=== PATIENT | male | born 1940 | race Caucasian/White ===

== ENCOUNTER 2017-07-07 07:19 | Observation (INO) ==
[2017-07-07] MEDS ORDERED: Aspirin 81 MG TAB.CHEW PO ONE (07:30)
[2017-07-07 07:56] LABS: Basophils % 0.4 %; Eosinophils # 0.2 K/mcL (0.0-0.6); Eosinophils % 2.1 %; Hematocrit 39.3 % (37.5-50.1); Hemoglobin 13.6 g/dL (12.9-16.9); Immature Granulocytes % 0.6 % (0-4); Lymphocytes % 20.4 %; Mean Corpuscular HGB Conc 34.6 g/dL (31.6-35.5); Mean Corpuscular Hemoglobin 31.9 pg (28.0-33.3); Mean Platelet Volume 8.9 fL (9.4-12.4); Monocytes % 10.4 %; Neutrophils # 6.5 K/mcL (1.6-8.9); Platelet Count 261 K/mcL (140-400); Red Blood Count 4.27 M/mcL (4.19-5.50); Red Cell Distribution Width 13.6 % (11.5-14.5); Segmented Neutrophils % 66.1 %
[2017-07-07 08:09] LABS: BUN/Creatinine Ratio 14 (6-26); Blood Urea Nitrogen 15 mg/dL (8-23); Calcium 9.7 mg/dL (8.6-10.3); Carbon Dioxide 27 mEq/L (23-29); Chloride 104 mEq/L (98-107); Glucose 108 mg/dL (70-105); Osmolality,Calculated 297 (280-300); Potassium 3.8 mEq/L (3.5-5.1); Sodium 143 mEq/L (136-145); eGFR For African Americans > 60 (> 60); eGFR For Non-African Americans > 60 (> 60)
[2017-07-07] MEDS ORDERED: Acetaminophen 325 MG TABLET PO ONE (08:58)
--- NOTE | 2017-07-07 09:04 | Emergency Department Note ---
Disposition Clinical Impression: Lung mass, Atypical chest pain Disposition: Admitted As Inpatient Condition: Good Time of Disposition: 10:20 General Adult HPI - General Chief complaint: ED Chest Pain Stated complaint: CP Time Seen by Provider: 07/07/17 07:29 Source: patient Limitations: no limitations Nursing Notes Reviewed: Yes Vital Signs Reviewed: Yes - History of Present Illness HPI Narrative: 76-year-old male presents emergency Department with concerns of shortness of breath, cough, chest pain. Patient states this feels similar to previous pneumonia he has had the past. Patient describes a yellow-green sputum and feels short of breath with exertion. Patient reports chest pain is in the left upper chest, radiates to left upper extremity however it is sharp and stabbing for a few seconds then leading into an ache or multiple minutes. Denies associated diaphoresis or palpitations or syncope. Pain Scale: 8 - Related Data Home Medications Medication Instructions Recorded Confirmed Albuterol Sulfate [Albuterol 1 - 2 puff IH QID PRN 07/07/17 07/07/17 Inhaler] Aspirin Enteric Coated [Aspirin EC] 325 mg PO DAILY 07/07/17 07/07/17 Meloxicam [Meloxicam] 15 mg PO DAILY 07/07/17 07/07/17 Pantoprazole Sodium 40 mg PO DAILY 07/07/17 07/07/17 raNITIdine HCl [Ranitidine HCl] 300 mg PO BID 07/07/17 07/07/17 Allergies Allergy/AdvReac Type Severity Reaction Status Date / Time No Known Allergies Allergy Verified 07/07/17 07:23 All systems ED: reviewed and negative except as stated. Review of Systems: As Per HPI Constitutional: Denies: fever, chills Cardiovascular: Reports: chest pain Respiratory: Reports: cough, dyspnea. Denies: wheezes Gastrointestinal: Denies: abdominal pain, nausea, vomiting, diarrhea, hematochezia Past Medical History - Past Medical History Attestation: Yes The following information was validated with the patient. Source: patient Medical history: Reports: non-contributory, COPD Psychiatric history: Reports: no psych history - Social History Smoking Status: Current every day smoker Smokeless Tobacco Status: No Alcohol use: Reports: none Drug use: Reports: none Physical Exam General: Alert and in no acute distress Skin: Warm, dry, intact Head: Normocephalic and atraumatic Neck: Supple, trachea midline and no tenderness Cardiovascular: RRR, no murmur, normal perfusion Respiratory: CTAB, no wheezing, cough, or respiratory distress Musculoskeletal: Normal strength, no tenderness, swelling or deformity GI: Soft, nontender, nondistended. Bowel sounds present Neuro: A&O to person, place, time and situation. No focal deficits noted on exam Psychiatric: cooperative and appropriate mood and affect. - General Limitations: no limitations General appearance: alert, in no apparent distress Course Vital Signs Temperature 97.6 F 07/07/17 07:20 Pulse Rate 71 07/07/17 07:20 Respiratory Rate 18 07/07/17 07:20 Blood Pressure 147/84 07/07/17 07:20 O2 Sat by Pulse Oximetry 96 07/07/17 07:20 Temperature 97.6 F 07/07/17 15:25 Pulse Rate 64 07/07/17 15:25 Respiratory Rate 18 07/07/17 15:25 Blood Pressure 145/82 07/07/17 15:25 O2 Sat by Pulse Oximetry 95 07/07/17 15:25 Oxygen Delivery Oxygen Delivery Nasal Cannula Medical Decision Making - MDM Narrative Medical decision making narrative: Mass of lung on CT. No history of cancer. will be admitted for further care and evaluation. - Medical Records Medical records reviewed: Yes I reviewed the patient's medical records. - Lab Data Lab results reviewed: Yes I reviewed the patient's lab results. Result diagrams: 07/07/17 07:48 07/07/17 07:48 Lab Results 07/07/17 07/07/17 07/07/17 Range/Units 07:48 07:48 07:48 WBC 9.8 (4.3-11.1) K/mcL RBC 4.27 (4.19-5.50) M/mcL Hgb 13.6 (12.9-16.9) g/dL Hct 39.3 (37.5-50.1) % MCV 92.0 (83.0-100.0) fL MCH 31.9 (28.0-33.3) pg MCHC 34.6 (31.6-35.5) g/dL RDW 13.6 (11.5-14.5) % Plt Count 261 (140-400) K/mcL MPV 8.9 L (9.4-12.4) fL Immature Gran % 0.6 (0-4) % Seg Neutrophils % 66.1 % Lymphocytes % 20.4 % Monocytes % 10.4 % Eosinophils % 2.1 % Basophils % 0.4 % Neutrophils # 6.5 (1.6-8.9) K/mcL Lymphocytes # 2.0 (0.6-4.6) K/mcL Monocytes # 1.0 (0.0-1.3) K/mcL Eosinophils # 0.2 (0.0-0.6) K/mcL Basophils # 0.0 (0.0-0.2) K/mcL Sodium 143 (136-145) mEq/L Potassium 3.8 (3.5-5.1) mEq/L Chloride 104 (98-107) mEq/L Carbon Dioxide 27 (23-29) mEq/L BUN 15 (8-23) mg/dL Creatinine 1.06 (0.70-1.30) mg/dL Est GFR ( Amer) > 60 (> 60) Est GFR (Non-Af Amer) > 60 (> 60) BUN/Creatinine Ratio 14 (6-26) Glucose 108 H (70-105) mg/dL Calculated Osmolality 297 (280-300) Calcium 9.7 (8.6-10.3) mg/dL Troponin I < 0.03 (< 0.04) ng/mL - Radiology Data Radiology results reviewed: Yes I reviewed the patient's radiology results. - EKG Data EKG #1 EKG attestation: Yes I reviewed and interpreted this EKG. EKG results narrative: Rate of 81, normal sinus rhythm with first-degree AV block and multiple PACs No STEMI
[2017-07-07] MEDS ORDERED: Ipratropium/Albuterol Neb 3 ML IH PRN (11:04)
--- NOTE | 2017-07-07 11:11 | Internal Med History&Physical ---
Date of Encounter: 07/07/17 Time of Encounter: 11:07 Assessment and Plan (1) Lung mass Current visit: Yes Status: Acute Suspicious for cancer. Will consult pulmonology service for bronchoscopy. Patient is on aspirin 325 mg daily. (2) COPD (chronic obstructive pulmonary disease) Current visit: Yes Status: Acute As needed nebulizer treatment. No acute exacerbation. Denies increasing cough or sputum production fever or chills. Follow up with pulmonology Qualifiers: Qualified Code(s): J44.9 - Chronic obstructive pulmonary disease, unspecified (3) Chest pain Current visit: Yes Status: Acute Likely due to lung mass. EKG shows no ST segment shifts. Initial troponin normal. Check 2 more sets of cardiac enzymes. Continue aspirin. CT angiogram is negative for pulmonary embolism. Telemetry monitoring Qualifiers: Qualified Code(s): R07.9 - Chest pain, unspecified (4) Smoking Current visit: Yes Status: Acute Nicotine patch. Internal Medicine - H&P: HPI Chief complaint: chest pain History of present illness: Mr. Ramirez is a 76 year old male with history of COPD not a home oxygen, who was a lifelong smoker with approximately 100 pack here smoking history presents to the emergency room today with the main complaint of chest pain. For the past 2 days patient has been having pain in the left upper chest sharp in nature. He denies any relation of pain to exertion. He denies any hemoptysis leg pain or tenderness. He was found on contrasted CT scan of the chest to have approximately 7 x 7 cm left upper lobe mess suspicious for brokerage in the carcinoma. Patient denies any appetite decline weight loss or functional decline. Patient brother from lung cancer. Patient denies any increase in cough, sputum production, fever, chills. Past Med Surg Social Fam HX - Past Medical History Medical history: non-contributory, COPD Psychiatric history: no psych history - Social History Smoking Status: Current every day smoker Smokeless Tobacco Status: No Alcohol use: none Drug use: none Internal Medicine - H&P: Meds Albuterol Sulfate [Albuterol Inhaler] 1 - 2 puff IH QID PRN 07/07/17 [History] Aspirin Enteric Coated [Aspirin EC] 325 mg PO DAILY 07/07/17 [History] Meloxicam [Meloxicam] 15 mg PO DAILY 07/07/17 [History] Pantoprazole Sodium 40 mg PO DAILY 07/07/17 [History] raNITIdine HCl [Ranitidine HCl] 300 mg PO BID 07/07/17 [History] 3 Allergy/AdvReac Type Severity Reaction Status Date / Time No Known Allergies Allergy Verified 07/07/17 07:23 All Systems PM: A 10-system review of systems was performed and is negative for pertinent findings except as documented above in the HPI. Review of systems: 10 point review of systems is negative except for HPI - Constitutional Vitals: Temp Pulse Resp BP Pulse Ox 97.6 F 63 18 148/88 95 07/07/17 07:20 07/07/17 09:05 07/07/17 10:47 07/07/17 10:47 07/07/17 10:20 Exam: Gen.: patient is alert oriented times 3 not in distress. Cardiac: normal S1 S2 no additional sounds are murmurs. Chest: Diminished air entry. Scattered expiratory wheeze Abdomen: soft nontender nondistended. Lower extremity no swelling mucous membranes: moist Internal Med - H&P Results - Labs CBC & Chem 7: 07/07/17 07:48 07/07/17 07:48
[2017-07-07] MEDS: *HR* HYDROcodone/Acet 5/325 mg TABLET PO PRN ×2 (12:29→20:55)
[2017-07-07] MEDS ORDERED: *HR* Promethazine 25 MG/ML VIAL IVP PRN (14:16)
[2017-07-07] MEDS: *HR* Morphine 2 MG/ML SYRINGE IVP PRN ×2 (14:29→18:22)
[2017-07-08] MEDS: *HR* Morphine 2 MG/ML SYRINGE IVP PRN ×4 (02:26→22:22)
[2017-07-08] MEDS: *HR* HYDROcodone/Acet 5/325 mg TABLET PO PRN ×3 (04:54→21:45)
--- NOTE | 2017-07-08 06:57 | Electrocardiograph Report ---
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
[2017-07-08 07:45] LABS: BUN/Creatinine Ratio 13 (6-26); Blood Urea Nitrogen 14 mg/dL (8-23); Carbon Dioxide 29 mEq/L (23-29); Chloride 105 mEq/L (98-107); Glucose 95 mg/dL (70-105); Magnesium 1.8 mg/dL (1.6-2.6); Osmolality,Calculated 290 (280-300); Potassium 3.8 mEq/L (3.5-5.1); Sodium 140 mEq/L (136-145); eGFR For African Americans > 60 (> 60); eGFR For Non-African Americans > 60 (> 60)
[2017-07-08] MEDS: Aspirin Enteric Coated 325 MG Tablet PO SCH (09:02)
--- NOTE | 2017-07-08 12:43 | Internal Med Progress Note ---
Date of Encounter: 07/08/17 Time of Encounter: 12:41 - Assessment and plan (1) Lung mass Current Visit: Yes Status: Acute Assessment and plan: Left-sided lung mass, he has 100 pack years of smoking history. Likely malignancy. Awaiting for pulmonary consult. (2) COPD (chronic obstructive pulmonary disease) Current Visit: Yes Status: Acute Assessment and plan: COPD, currently on room air, no shortness of breath. Nebulizer as needed Qualifiers: Qualified Code(s): J44.9 - Chronic obstructive pulmonary disease, unspecified (3) Chest pain Current Visit: Yes Status: Acute Assessment and plan: Chest pain is atypical, nonexertional. Likely from long mass He had essentially negative troponin, CTA is negative for PE. Will order echocardiogram Qualifiers: Qualified Code(s): R07.9 - Chest pain, unspecified (4) Smoking Current Visit: Yes Status: Chronic Assessment and plan: Smoking cessation discussed, on nicotine patch. (5) GERD (gastroesophageal reflux disease) Current Visit: Yes Status: Acute Assessment and plan: Continue omeprazole Qualifiers: Esophagitis presence: without esophagitis Qualified Code(s): K21.9 - Gastro -esophageal reflux disease without esophagitis - Time Spent With Patient 25 - 35 minutes - Subjective Interval history: Mr. Ramirez is a 76 year old male with history of COPD not a home oxygen, who was a lifelong smoker with approximately 100 pack here smoking history presents to the emergency room today with the main complaint of chest pain. For the past 2 days patient has been having pain in the left upper chest sharp in nature. He denies any relation of pain to exertion. He denies any hemoptysis leg pain or tenderness. He was found on contrasted CT scan of the chest to have approximately 7 x 7 cm left upper lobe mess suspicious for brokerage in the carcinoma. Patient denies any appetite decline weight loss or functional decline. Patient brother from lung cancer. Patient denies any increase in cough, sputum production, fever, chills. Patient is doing okay, on room air. He still complaining of left arm pain on and off sharp. He has some tenderness to left chest wall and the axillary. I discussed the CT findings with him he understand it could be malignancy. He is alert oriented 3 he says he makes his own decision - Constitutional Vitals: Temp Pulse Resp BP Pulse Ox 98.1 F 63 16 125/81 94 07/08/17 11:22 07/08/17 11:22 07/08/17 11:22 07/08/17 11:22 07/08/17 11:22 General appearance: Present: cooperative, A&O X 3, loss of weight Exam: CONSTITUTIONAL: patient appears as an age appropriate male in no acute distress. EYES Clear sclerae, bilateral pupils are equal, reactive to light. EMOI. RESPIRATORY: No accessory muscle use, bilateral reduced breath sounds to auscultation, no wheezing, no crackles/rales. CARDIOVASCULAR: Regular heart rate, normal S1 and S2, no murmurs GASTROINTESTINAL: bowel sounds present, soft, no tenderness. MUSCULOSKELETAL: Joints in normal range of motion, no clubbing, no edema, no cyanosis. Bilateral peripheral pulses 2+. NEUROLOGIC: CN II to XII are grossly intact, no focal neurological deficit. Internal Medicine: Result - Labs CBC & Chem 7: 07/07/17 07:48 07/08/17 05:20 Labs: BMP 07/08/17 05:20 Sodium 140 Potassium 3.8 Chloride 105 Carbon Dioxide 29 BUN 14 Creatinine 1.12 Glucose 95 Calcium 9.0 Cardiac Enzymes 07/07/17 07/07/17 Range/Units 13:34 19:46 Troponin I < 0.03 < 0.03 (< 0.04) ng/mL - ABG Interpretation ABG results: PT/INR, D-dimer PT 11.0 Seconds (9.4-12.1) 07/08/17 05:20 - VTE Documentation of Mechanical Device: Intermittent pneumatic compression device Consult Discharge Plan - Plan Referrals: Willem Le DO [Primary Care Provider] -
[2017-07-08] MEDS ORDERED: *HR* OxyCODONE Immed Rel 5 MG TABLET PO ONE (23:16)
[2017-07-08] MEDS: Nicotine 21 MG PATCH.TD24 TD SCH (23:57)
[2017-07-09] MEDS ORDERED: Methocarbamol 500 MG TABLET PO ONE (01:55)
[2017-07-09] MEDS: *HR* Morphine 2 MG/ML SYRINGE IVP PRN ×2 (04:12→23:17)
[2017-07-09] MEDS: Aspirin Enteric Coated 325 MG Tablet PO SCH (07:47)
[2017-07-09] MEDS: Nicotine 21 MG PATCH.TD24 TD SCH (07:47)
--- NOTE | 2017-07-09 08:17 | Internal Med Progress Note ---
Date of Encounter: 07/09/17 Time of Encounter: 08:15 - Assessment and plan (1) Lung mass Current Visit: Yes Status: Acute Assessment and plan: Left-sided lung mass, he has 100 pack years of smoking history. Likely malignancy. Awaiting for pulmonary consult. I discussed it was breaker machine tender is Dr. Villela he will see the patient patient is nothing by mouth may do procedure, INR is 1. (2) COPD (chronic obstructive pulmonary disease) Current Visit: Yes Status: Chronic Assessment and plan: COPD, currently on room air, no shortness of breath. Nebulizer as needed Qualifiers: Qualified Code(s): J44.9 - Chronic obstructive pulmonary disease, unspecified (3) Chest pain Current Visit: Yes Status: Acute Assessment and plan: Chest pain is atypical, non exertional. Likely from long mass He had essentially negative troponin, CTA is negative for PE. pending echocardiogram Qualifiers: Chest pain type: intercostal pain Qualified Code(s): R07.82 - Intercostal pain (4) Smoking Current Visit: Yes Status: Chronic Assessment and plan: Smoking cessation discussed, on nicotine patch. (5) GERD (gastroesophageal reflux disease) Current Visit: Yes Status: Acute Assessment and plan: Continue omeprazole Qualifiers: Esophagitis presence: without esophagitis Qualified Code(s): K21.9 - Gastro -esophageal reflux disease without esophagitis - Time Spent With Patient 25 - 35 minutes - Subjective Interval history: Mr. Ramirez is a 76 year old male with history of COPD not a home oxygen, who was a lifelong smoker with approximately 100 pack here smoking history presents to the emergency room today with the main complaint of chest pain. For the past 2 days patient has been having pain in the left upper chest sharp in nature. He denies any relation of pain to exertion. He denies any hemoptysis leg pain or tenderness. He was found on contrasted CT scan of the chest to have approximately 7 x 7 cm left upper lobe mess suspicious for brokerage in the carcinoma. Patient denies any appetite decline weight loss or functional decline. Patient brother from lung cancer. Patient denies any increase in cough, sputum production, fever, chills. Patient is doing okay, on room air. He still complaining of left arm pain on and off sharp. He has some tenderness to left chest wall and the axillary. I discussed the CT findings with him he understand it could be malignancy. He is alert oriented 3 he says he makes his own decision Patient states is a LEFT-sided chest pain has been improving overnight, muscle relaxants helped HIS shoulder pain. He is nothing by mouth waiting for Dr. Villela to see the patient I discussed with his breaker machine tender is Dr. Richard today he may do bronchscopy today. - Constitutional Vitals: Temp Pulse Resp BP Pulse Ox 97.7 F 69 18 150/96 95 07/09/17 08:02 07/09/17 08:02 07/09/17 08:02 07/09/17 08:02 07/09/17 08:02 General appearance: Present: cooperative, A&O X 3, loss of weight Exam: CONSTITUTIONAL: patient appears as an age appropriate male in no acute distress. EYES Clear sclerae, bilateral pupils are equal, reactive to light. EMOI. RESPIRATORY: No accessory muscle use, bilateral diminished breath sounds to auscultation, no wheezing, no crackles/rales. CARDIOVASCULAR: Regular heart rate, normal S1 and S2, no murmurs GASTROINTESTINAL: bowel sounds present, soft, no tenderness. MUSCULOSKELETAL: Joints in normal range of motion, no clubbing, no edema, no cyanosis. Bilateral peripheral pulses 2+. NEUROLOGIC: CN II to XII are grossly intact, no focal neurological deficit. Internal Medicine: Result - Labs CBC & Chem 7: 07/07/17 07:48 07/08/17 05:20 - ABG Interpretation ABG results: PT/INR, D-dimer PT 11.0 Seconds (9.4-12.1) 07/08/17 05:20 - VTE Documentation of Mechanical Device: Intermittent pneumatic compression device Consult Discharge Plan - Plan Referrals: Willem Le DO [Primary Care Provider] -
[2017-07-09] MEDS ORDERED: *HR* FentaNYL (PF) 100 MCG/2 ML VIAL ONE (09:14)
[2017-07-09] MEDS ORDERED: *HR* Midazolam HCl 5 MG/5 ML VIAL IVP ONE ×2 (09:14→09:23)
[2017-07-09] MEDS ORDERED: Lidocaine Viscous Oral Soln 15 ML SOLUTION ONE (09:14)
[2017-07-09] MEDS ORDERED: 0.9 % Sodium Chloride 500 ML IVC SCH (09:15)
[2017-07-09] MEDS ORDERED: *HR* EPINEPHrine 1 MG/10 ML SYRINGE INTRATRACH PRN (09:23)
[2017-07-09] MEDS ORDERED: Tetracaine/Benzocaine/Butamben 200MG/SPRAY (100SPY/BOT) MM ONE (09:23)
[2017-07-09] MEDS ORDERED: Lidocaine Viscous Oral Soln 15 ML SOLUTION MM ONE (09:23)
[2017-07-09] MEDS ORDERED: *HR* FentaNYL (PF) 100 MCG/2 ML VIAL IVP ONE ×2 (09:23→09:46)
[2017-07-09] MEDS ORDERED: Albuterol 2.5 MG/3 ML NEBULIZER IH ONE (09:23)
--- NOTE | 2017-07-09 09:25 | Pre-Sedation Evaluation ---
Pre-sedation evaluation - Pre-sedation checklist Date of procedure: 07/09/17 Procedure: Bronchoscopy Recent Vitals: Last Vital Signs Temp 97.7 F 07/09/17 08:02 Pulse 102 07/09/17 09:17 Resp 16 07/09/17 09:17 BP 153/80 07/09/17 09:17 Pulse Ox 94 07/09/17 09:17 H&P (including ROS) documented in medical record: Yes Previous reaction to sedatives/anesthetics: No Dietary Status: NPO after Midnight Possible difficult airway: No ASA Classification *see protocol: CLASS II-Mild systemic disease Plan of Care: Pt appropriate candidate for procedure/moderate/conscious sedation , Risks/benefits of procedure/sedation discussed w/ patient/family
[2017-07-09] MEDS ORDERED: Ringers Solution, Lactated 1,000 ML IVC SCH (09:30)
[2017-07-09] MEDS ORDERED: Dexamethasone 4 MG/ML VIAL IVP ONE (10:11)
[2017-07-09] MEDS ORDERED: Ipratropium/Albuterol Neb 3 ML ONE (10:11)
[2017-07-09] MEDS ORDERED: methylPREDNISolone 125 MG/2 ML VIAL ONE (10:11)
[2017-07-09] MEDS ORDERED: Ipratropium/Albuterol Neb 3 ML IH ONE (10:12)
[2017-07-09] MEDS ORDERED: methylPREDNISolone 125 MG/2 ML VIAL IVP ONE (10:12)
[2017-07-09] MEDS ORDERED: *HR* EPINEPHrine 1 MG/10 ML SYRINGE ONE (10:32)
[2017-07-09 14:52] LABS: Appearance of Body Fluid Cloudy (Clear); Volume of Body Fluid 22 mL
--- NOTE | 2017-07-09 16:26 | Oncology Inp Consult Note ---
<Vinnie Leblanc - Last Filed: 07/09/17 22:59> Date of Encounter: 07/09/17 Assessment and Plan (1) Lung mass Status: Acute Assessment and plan: Left upper lobe lung mass abutting the mediastinum with possible left hilar adenopathy and prominent subcarinal lymph node. Presentation seems to fit squamous cell carcinoma or small cell carcinoma although other histologies are possible. Biopsy results from EBUS with biopsy today pending. Recommend MRI imaging of the brain and outpatient PET/CT for staging. Will need PFTs as well. Will await pathology and staging studies prior to finalizing treatment plan and d/w patient that therapy could include chemotherapy with and without radiation and less likely surgery. He may be d/c home and will schedule with close f/u with me next week. - Data of Consult Requesting Physician: Kayce Pittamn MD Primary Care Provider: Willem Le - Consult Narrative Reason for consult: Probable new lung cancer History of present illness: Mr. Ramirez is a 76 year old male with an extensive tobacco history smoking up to 5 ppd at points in his life as well as GERD and COPD who presented with a two to three week history of left shoulder pain followed more acutely with chest pain for the past two days prompting ER visit. CT imaging at admission revealed a large left apical mass measuring 7..4 x 5.6 x 7.1 cm which abuts the mediastinal pleura and extends up to the superior margin of the left hilum. The mass surrounds and obstructs the left upper lobe bronchus with postobstructive volume loss within the left upper lobe. The mass abuts the upper thoracic spine however no definite erosion of the adjacent vertebral bodies are evident. There is an enlarged left hilar lymph node measuring 1.7 x 1.8 cm. Subcarinal node by my review appears enlarged. Extensive emphysema identified. There is an indeterminate 2.0 x 1.4 cm left adrenal nodule, He underwent bronchoscopy with EBUS today with sampling of the mass which by preliminary evaluation was suspicious for malignancy. Left hilar biopsy preliminarily negative. He tolerated the procedure well. Pain is better, and he is breathing more comfortably. Appetite is stable, but he believes he has lost weight. He is accompanied by his granddaughter. Past Med Surg Social Fam HX - Past Medical History Medical history: COPD, GERD Medications and Allergies Albuterol Sulfate [Albuterol Inhaler] 1 - 2 puff IH QID PRN 07/07/17 [History] Aspirin Enteric Coated [Aspirin EC] 325 mg PO DAILY 07/07/17 [History] Meloxicam [Meloxicam] 15 mg PO DAILY 07/07/17 [History] Pantoprazole Sodium 40 mg PO DAILY 07/07/17 [History] raNITIdine HCl [Ranitidine HCl] 300 mg PO BID 07/07/17 [History] 3 Allergy/AdvReac Type Severity Reaction Status Date / Time No Known Allergies Allergy Verified 07/07/17 07:23 All systems: reviewed and no additional remarkable complaints except as stated Constitutional: Present: fatigue, weight loss Eyes: Present: as per HPI Ears: Present: as per HPI Nose, mouth and throat: Present: as per HPI Cardiovascular: Present: chest pain, dyspnea on exertion Respiratory: Present: cough, dyspnea on exertion Gastrointestinal: Present: as per HPI Musculoskeletal: Present: as per HPI Integumentary: Present: as per HPI Psychiatric: Present: as per HPI Oncology - Exam - Constitutional Vitals: Temp Pulse Resp BP Pulse Ox 97.5 F L 70 18 130/83 90 07/09/17 15:24 07/09/17 15:24 07/09/17 15:24 07/09/17 15:24 07/09/17 15:24 General appearance: average body habitus, no acute distress - Head Head exam: Present: atraumatic, normal inspection, normocephalic - Eye Eye exam: Present: EOMI, normal appearance, conjuntiva pink, sclera anicteric - ENT ENT exam: Present: mucous membranes moist, normal exam - Neck Neck exam: Present: full ROM, normal inspection - Respiratory Respiratory exam: Present: decreased breath sounds, prolonged expiratory phase - Cardiovascular Cardiovascular exam: Present: RRR - GI/Abdominal GI/Abdominal exam: Present: normal bowel sounds, soft - Extremities Exam Extremities exam: Present: normal inspection - Neurological Exam Neurological exam: Present: alert, CN II-XII intact, oriented X3, no focal deficits Oncology - Results Labs: CBC 07/07/17 normal. CMP 07/08/17 normal. CTA OF THE CHEST 07/07/2017 10:01 am TECHNIQUE: CTA of the chest was performed after the administration of intravenous contrast. Multiplanar reformatted images are provided for review. MIP images are provided for review. Dose modulation, iterative reconstruction, and/or weight based adjustment of the mA/kV was utilized to reduce the radiation dose to as low as reasonably achievable. COMPARISON: Chest radiograph earlier same day HISTORY: ORDERING SYSTEM PROVIDED HISTORY: dyspnea r/o PE 70 ml of isovue 370 Chest pain and left shoulder pain for 1 week. FINDINGS: Pulmonary Arteries: There are no filling defects identified within the main, right or left pulmonary arteries or their major lobar or segmental branches to suggest acute pulmonary embolism. Mediastinum: The airways are normal in appearance. Atherosclerotic calcifications are present within the thoracic aorta and coronary arteries. There is no paratracheal lymphadenopathy or superior mediastinal lymphadenopathy. Lungs/pleura: There is a large left apical mass which abuts the mediastinal pleura and extends up to the superior margin of the left hilum. The mass surrounds and obstructs the left upper lobe bronchus with postobstructive volume loss within the left upper lobe inseparable from the mass. The mass measures approximately 7.4 x 5.6 x 7.1 cm in AP by transverse by craniocaudal dimension. There is an enlarged left hilar lymph node measuring 1.7 x 1.8 cm. The mass abuts the upper thoracic spine however no definite erosion of the adjacent vertebral bodies are evident. The mass narrows the left upper lobe lobar and segmental pulmonary arteries. Centrilobular emphysematous changes are present within the upper lobes. There is no pleural effusion. There is an indeterminate solid 5 mm right upper lobe pulmonary nodule. No additional pulmonary nodules are identified. Upper Abdomen: There is an indeterminate 2.0 x 1.4 cm left adrenal nodule, incompletely evaluated. Limited evaluation of the right adrenal gland is unremarkable. A hiatal hernia is noted. Soft Tissues/Bones: No lytic or blastic osseous lesions are identified. CT/CT angio chest IMPRESSION: 1. Negative CT angiogram for acute pulmonary embolism. 2. Large left apical mass measuring approximately 7.4 x 5.6 x 7.1 cm obstructing left upper lobe bronchus consistent with a bronchogenic carcinoma. 3. Enlarged left hilar lymph node most consistent with a focus of yeni metastatic disease. 4. Indeterminate left adrenal nodule concerning for a possible focus of metastatic disease. 5. Indeterminate 5 mm right upper lobe pulmonary nodule. The above findings were discussed with Dr. Perez at 10:15 a.m. on 07/07/2017. Consult Discharge Plan - Plan Referrals: Willem Le DO [Primary Care Provider] - <Milly Kent - Last Filed: 07/10/17 14:33> Date of Encounter: 07/10/17 Time of Encounter: 16:25 - Data of Consult Patient: new to practice Consult date: 07/09/17 Requesting Physician: Kayce Pittman MD Primary Care Provider: Willem Le Past Med Surg Social Fam HX - Past Medical History Medical history: non-contributory, COPD Psychiatric history: no psych history - Social History Smoking Status: Current every day smoker Smokeless Tobacco Status: No Alcohol use: none Drug use: none - Family History Mother Living Status: Hx Family Respiratory Disorders: Yes (asthma) Father Living Status: Constitutional: Present: fatigue, weight loss Cardiovascular: Present: chest pain, dyspnea on exertion, radiating pain Additional comments: radiating pain through shoulder blade Respiratory: Present: cough, dyspnea on exertion Gastrointestinal: Present: as per HPI Genitourinary: as per HPI Musculoskeletal: Present: as per HPI Integumentary: Present: as per HPI Neurological: Present: as per HPI. Absent: focal weakness Psychiatric: Present: as per HPI Endocrine: Present: as per HPI Oncology - Exam - Constitutional Vitals: Temp Pulse Resp BP Pulse Ox 97.5 F L 70 18 130/83 90 07/09/17 15:24 07/09/17 15:24 07/09/17 15:24 07/09/17 15:24 07/09/17 15:24 - Head Head exam: Present: atraumatic, normal inspection - Respiratory Respiratory exam: Present: decreased breath sounds, wheezes. Absent: respiratory distress - Cardiovascular Cardiovascular exam: Present: RRR, +S1, +S2 - GI/Abdominal GI/Abdominal exam: Present: normal bowel sounds, soft. Absent: tenderness - Extremities Exam Extremities exam: Present: normal inspection. Absent: calf tenderness - Expanded Lower Extremity Exam Lower Leg exam: Absent: swelling - Neurological Exam Neurological exam: Present: alert, oriented X3, no focal deficits - Psychiatric Psychiatric exam: Present: normal affect, normal mood - Skin Skin exam: Present: normal color, warm
--- NOTE | 2017-07-09 18:26 | Pulmonology Consult Note ---
Date of Encounter: 07/09/17 Time of Encounter: 08:00 Assessment and Plan (1) Lung mass Current Visit: Yes Status: Acute I have reviewed the result of the CT chest with the patient as well as with his family at the bedside and due to high suspicion clinically as well as CT images have recommended biopsy with rhonchi auscultated to check airway and also his lymph nodes and I also offered him CT-guided biopsy. The patient agreed with bronchoscopy and I have explained to him all the risks, alternatives, benefits of the procedure and procedure arranged for the patient. Plan of care discussed with the primary team and thank you very much for the consultation. (2) COPD (chronic obstructive pulmonary disease) Current Visit: Yes Status: Chronic Patient will need outpatient follow-up and workup with pulmonary function test and also at this time continue bronchodilators. Qualifiers: COPD type: unspecified COPD Qualified Code(s): J44.9 - Chronic obstructive pulmonary disease, unspecified (3) Smoking Current Visit: Yes Status: Chronic Advised patient to quit smoking. History of Present Illness Consult date: 07/09/17 Requesting physician: Kayce Pittman Reason for consult: COPD, lung mass Chief complaint: Chest pain History of present illness: This is a very pleasant 76-year-old male with history of COPD and significant history of smoking for about 100 pack year old presented to the hospital with chest pain. Patient denies any hemoptysis and he was found to have abnormal CT chest with a mass occupying left upper lobe suspicious for carcinoma and pulmonary was consulted for evaluation. Patient denies any significant productive cough or significant wheezing but he has noticed dyspnea on cession. Patient denies any fever or chills or weight loss. He denies any significant family history of lung cancers. Past Med Surg Social Fam HX - Past Medical History Medical history: non-contributory, COPD Psychiatric history: no psych history - Social History Smoking Status: Current every day smoker Smokeless Tobacco Status: No Alcohol use: none Drug use: none - Family History Mother Living Status: Hx Family Respiratory Disorders: Yes (asthma) Father Living Status: Medications and Allergies Albuterol Sulfate [Albuterol Inhaler] 1 - 2 puff IH QID PRN 07/07/17 [History] Aspirin Enteric Coated [Aspirin EC] 325 mg PO DAILY 07/07/17 [History] Meloxicam [Meloxicam] 15 mg PO DAILY 07/07/17 [History] Pantoprazole Sodium 40 mg PO DAILY 07/07/17 [History] raNITIdine HCl [Ranitidine HCl] 300 mg PO BID 07/07/17 [History] 3 Allergy/AdvReac Type Severity Reaction Status Date / Time No Known Allergies Allergy Verified 07/07/17 07:23 All Systems: A 10-system review of systems was performed and is negative for pertinent findings except as documented above in the HPI. Physical Examination Vital Signs: Vital Signs, Last 4 Hours Temp Pulse Resp BP Pulse Ox 07/09/17 15:24 97.5 F L 70 18 130/83 90 General appearance: no acute distress ENT: oropharynx moist Mallampati (class): 2 Neck: supple, no lymphadenopathy Effort: normal Inspection: hyperextended Auscultation: left: rhonchi, bilateral: diminished breath sounds Percussion: bilateral: not dull Cardiovascular: regular rate and rhythm Gastrointestinal: normoactive bowel sounds Extremities: no cyanosis normal mental status, non-focal exam mood appropriate Results - Laboratory Findings CBC and BMP: 07/07/17 07:48 07/08/17 05:20 PT/INR, D-dimer PT 11.0 Seconds (9.4-12.1) 07/08/17 05:20 Abnormal lab findings: Abnormal lab results MPV 8.9 fL (9.4-12.4) L 07/07/17 07:48 Fluid Appearance Cloudy (Clear) A 07/09/17 Unknown - Microbiology Findings Microbiology Findings: Microbiology, Last 48 Hours 07/09/17 Unknown Gram Stain - Final Left Upper Lobe Lung - Diagnostic Findings CT scan - chest: report reviewed, image reviewed - Clinical Findings Intake & Output: Intake & Output 07/09/17 07/09/17 07/09/17 07:59 15:59 23:59 Intake Total 300 / 300 Output Total 700 / 700 200 / 200 Balance -700 / -700 100 / 100 Weight 82.8 kg Consult Discharge Plan - Plan Referrals: Willem Le DO [Primary Care Provider] -
[2017-07-09] MEDS: *HR* HYDROcodone/Acet 5/325 mg TABLET PO PRN (20:48)
[2017-07-10] MEDS: Methocarbamol 750 MG TABLET PO PRN ×3 (01:59→21:30)
[2017-07-10] MEDS ORDERED: *HR* EPINEPHrine 1 MG/10 ML SYRINGE ONE (06:58)
[2017-07-10] MEDS: Nicotine 21 MG PATCH.TD24 TD SCH (08:50)
[2017-07-10] MEDS: Aspirin Enteric Coated 325 MG Tablet PO SCH (08:51)
--- NOTE | 2017-07-10 14:13 | Internal Med Progress Note ---
Date of Encounter: 07/10/17 Time of Encounter: 14:10 - Assessment and plan (1) Lung mass Current Visit: Yes Status: Acute Assessment and plan: Left-sided lung mass, he has 100 pack years of smoking history. Likely malignancy. Pulmonary was consulted, had the bronchoscope and biopsy on July 09, pending pathology report Oncologist on board. pain is better controlled with muscle relax (2) COPD (chronic obstructive pulmonary disease) Current Visit: Yes Status: Chronic Assessment and plan: COPD, currently on room air, no shortness of breath. Nebulizer as needed As a nebulizer as scheduled Qualifiers: COPD type: unspecified COPD Qualified Code(s): J44.9 - Chronic obstructive pulmonary disease, unspecified (3) Chest pain Current Visit: Yes Status: Acute Assessment and plan: Chest pain is atypical, non exertional. Likely from long mass He had essentially negative troponin, CTA is negative for PE. echocardiogram on 07/08, normal EF Qualifiers: Chest pain type: intercostal pain Qualified Code(s): R07.82 - Intercostal pain (4) Smoking Current Visit: Yes Status: Chronic Assessment and plan: Smoking cessation discussed, on nicotine patch. (5) GERD (gastroesophageal reflux disease) Current Visit: Yes Status: Acute Assessment and plan: Continue omeprazole Qualifiers: Esophagitis presence: without esophagitis Qualified Code(s): K21.9 - Gastro -esophageal reflux disease without esophagitis - Time Spent With Patient 25 - 35 minutes - Subjective Interval history: Mr. Ramirez is a 76 year old male with history of COPD not a home oxygen, who was a lifelong smoker with approximately 100 pack here smoking history presents to the emergency room today with the main complaint of chest pain. For the past 2 days patient has been having pain in the left upper chest sharp in nature. He denies any relation of pain to exertion. He denies any hemoptysis leg pain or tenderness. He was found on contrasted CT scan of the chest to have approximately 7 x 7 cm left upper lobe mess suspicious for brokerage in the carcinoma. Patient denies any appetite decline weight loss or functional decline. Patient brother from lung cancer. Patient denies any increase in cough, sputum production, fever, chills. Patient is doing okay, on room air. He still complaining of left arm pain on and off sharp. He has some tenderness to left chest wall and the axillary. I discussed the CT findings with him he understand it could be malignancy. He is alert oriented 3 he says he makes his own decision Dr. Richard was consulted on 07/09, had bronchscopy and biopsy, pending path, oncology is on board - Constitutional Vitals: Temp Pulse Resp BP Pulse Ox 97.4 F L 72 18 148/82 94 07/10/17 11:04 07/10/17 11:04 07/10/17 11:04 07/10/17 11:04 07/10/17 11:04 General appearance: Present: cooperative, A&O X 3, loss of weight Exam: CONSTITUTIONAL: patient appears as an age appropriate male in no acute distress. EYES Clear sclerae, bilateral pupils are equal, reactive to light. EMOI. RESPIRATORY: No accessory muscle use, bilateral diminished breath sounds to auscultation, no wheezing, no crackles/rales. CARDIOVASCULAR: Regular heart rate, normal S1 and S2, no murmurs GASTROINTESTINAL: bowel sounds present, soft, no tenderness. MUSCULOSKELETAL: Joints in normal range of motion, no clubbing, no edema, no cyanosis. Bilateral peripheral pulses 2+. NEUROLOGIC: CN II to XII are grossly intact, no focal neurological deficit. Internal Medicine: Result - Labs CBC & Chem 7: 07/07/17 07:48 07/08/17 05:20 - ABG Interpretation ABG results: PT/INR, D-dimer PT 11.0 Seconds (9.4-12.1) 07/08/17 05:20 - VTE Documentation of Mechanical Device: Intermittent pneumatic compression device Consult Discharge Plan - Plan Referrals: Willem Le DO [Primary Care Provider] -
--- NOTE | 2017-07-10 14:36 | Oncology Inp Progress Note ---
Date of Encounter: 07/10/17 Time of Encounter: 14:34 (1) Lung mass Current Visit: Yes Status: Acute Assessment and plan: Left upper lobe lung mass abutting the mediastinum with possible left hilar adenopathy and prominent subcarinal lymph node. Biopsy results from EBUS with biopsy today pending. MRI imaging of the brain today negative for intracranial metastasis. Outpatient PET/CT for staging. Will need PFTs as well. I again reiterated plan to await pathology and staging studies prior to finalizing treatment plan and d/w patient that therapy could include chemotherapy with and without radiation and less likely surgery. Patient and patients granddaughter verbalize understanding and have no further questions at this time. He may be d/c home when cleared through medical team and he is scheduled to follow up with Dr. Leblanc on Thursday to initiate treatment planning. Oncology: Subj Interval history: Mr. Ramirez is resting comfortably, his granddaughter is at his bedside. Pain to left upper chest/shoulder blade has improved. His only real complaint at this time is constipation, he has been prescribed colace and miralax. - Constitutional Vitals: Vital Signs Temp Pulse Resp BP Pulse Ox 07/10/17 11:04 97.4 F L 72 18 148/82 94 07/10/17 08:57 95 07/10/17 07:20 97.9 F 64 16 134/75 95 07/10/17 02:15 97.6 F 72 16 127/71 92 07/09/17 22:54 97.7 F 86 16 110/63 93 07/09/17 22:24 18 96 07/09/17 18:41 97.9 F 94 14 146/76 93 07/09/17 15:24 97.5 F L 70 18 130/83 90 Intake and Output 07/09/17 07/10/17 07/10/17 23:59 07:59 15:59 Intake Total 600 / 600 240 / 240 240 / 240 Output Total 800 / 800 300 / 300 Balance -200 / -200 -60 / -60 240 / 240 Intake: Oral 600 / 600 240 / 240 240 / 240 Output: Urine 800 / 800 300 / 300 Other: Meal Breakfast Percent of Meal Consumed 90% Weight 82.4 kg Patient Weight 07/10/17 23:59 Weight 82.4 kg General appearance: cooperative, no acute distress, no febrile - Respiratory Respiratory exam: Present: decreased breath sounds, wheezes. Absent: respiratory distress - Cardiovascular Cardiovascular exam: Present: RRR, +S1, +S2 - GI/Abdominal GI/Abdominal exam: Present: distended, normal bowel sounds, soft. Absent: tenderness - Extremities Exam Extremities exam: Absent: calf tenderness, pedal edema - Neurological Exam Neurological exam: Present: alert, oriented X3, no focal deficits, strengths equal and symetr throughout - Psychiatric Psychiatric exam: Present: normal affect, normal mood - Skin Skin exam: Present: normal color, warm Oncology: Obj Data - Labs CBC & Chem 7: 07/07/17 07:48 07/08/17 05:20 Labs: Laboratory Results - last 24 hr 07/09/17 Unknown Fluid Source BRANDON bal Fluid Volume 22 Fluid Appearance Cloudy A Fluid RBC Fld Tot Nucleated Cell Fluid Seg Neutrophil % 33.0 Fluid Lymphocytes % 5.0 Fluid Monocytes % 1.0 Fluid Other Cells % 61.0 - ABG Interpretation ABG results: PT/INR, D-dimer PT 11.0 Seconds (9.4-12.1) 07/08/17 05:20 Consult Discharge Plan - Plan Referrals: Willem Le DO [Primary Care Provider] -
[2017-07-10] MEDS: Ipratropium/Albuterol Neb 3 ML IH SCH ×3 (17:12→23:28)
[2017-07-10] MEDS: *HR* HYDROcodone/Acet 5/325 mg TABLET PO PRN (18:06)
[2017-07-11] MEDS: Ipratropium/Albuterol Neb 3 ML IH SCH ×7 (00:38→23:21)
[2017-07-11] MEDS ORDERED: *HR* OxyCODONE Immed Rel 5 MG TABLET PO ONE (02:18)
[2017-07-11] MEDS: *HR* HYDROcodone/Acet 5/325 mg TABLET PO PRN (05:51)
[2017-07-11] MEDS: Aspirin Enteric Coated 325 MG Tablet PO SCH (12:02)
[2017-07-11] MEDS: Nicotine 21 MG PATCH.TD24 TD SCH (12:02)
[2017-07-11] MEDS: Methocarbamol 750 MG TABLET PO PRN ×2 (12:02→20:11)
--- NOTE | 2017-07-11 15:55 | Internal Med Progress Note ---
Date of Encounter: 07/11/17 Time of Encounter: 15:55 - Assessment and plan (1) Lung mass Current Visit: Yes Status: Acute Assessment and plan: Patient with left upper lobe lung mass abutting the mediastinum. There are left hilar lymphadenopathy and a prominent subcarinal lymph node had biopsy on . Results are pending. He has continued to complain of pain in the left upper posterior chest. States the pain is not under control. Adequate dry oxycodone which has helped before. Oncology is planning to see him as an outpatient for planning of further investigation and treatment. If his pain is better controlled could be discharged tomorrow. (2) COPD (chronic obstructive pulmonary disease) Current Visit: Yes Status: Chronic Assessment and plan: COPD, currently on room air, no shortness of breath. Nebulizer as needed As a nebulizer as scheduled Qualifiers: COPD type: unspecified COPD Qualified Code(s): J44.9 - Chronic obstructive pulmonary disease, unspecified (3) Atypical chest pain Current Visit: Yes Status: Acute Assessment and plan: His pain is mainly in the left upper chest and posterior. Likely due to the lung mass. Since the pain is not under control oxycodone was added today. - Subjective Interval history: He is complaining of pain in the left upper back where he had the lung mass biopsy. Had 1 dose of oxycodone which has helped. He does not feel like his pain is under control. He had lung biopsy waiting for the results. Has been evaluated by oncology plan to see him as outpatient if possible on Thursday. But patient is continued to complaining of pain which needs addressed before discharge. His shortness of breath is stable. No hemoptysis. He has cough denies any dizziness or lightheadedness. - Constitutional Vitals: Temp Pulse Resp BP Pulse Ox 98.6 F 94 17 113/71 91 07/11/17 12:29 07/11/17 12:29 07/11/17 12:29 07/11/17 12:29 07/11/17 12:29 General appearance: Present: cooperative, A&O X 3, loss of weight Exam: Chronically ill-looking elderly male in no respiratory distress at rest. Has a low no cyanosis or jaundice. CVS S1-S2 regular no murmur heard. Respiratory system decreased and see on the left side. Has pain and tenderness on the left scapular region. Abdomen soft nontender no hepatomegaly. Extremities no edema. No calf asymmetry. No calf tenderness. [employer], and no confusion speech normal no facial asymmetry. Skin no bleeding at the site of the biopsy site. No large ecchymoses or bruises. Internal Medicine: Result - Labs CBC & Chem 7: 07/07/17 07:48 07/08/17 05:20 - ABG Interpretation ABG results: PT/INR, D-dimer PT 11.0 Seconds (9.4-12.1) 07/08/17 05:20 - Impressions Impressions Head MRI 07/09/17 22:54 IMPRESSION: No brain metastasis. D/ / Chriss Veronica MD / Chriss Veronica MD Interpreting Provider: Chriss Veronica MD - VTE Documentation of Mechanical Device: Intermittent pneumatic compression device Consult Discharge Plan - Plan Referrals: Willem Le DO [Primary Care Provider] -
[2017-07-11] MEDS: *HR* OxyCODONE Immed Rel 5 MG TABLET PO PRN ×2 (16:03→22:25)
[2017-07-11 22:10] LABS: Basophils % 0.2 %; Eosinophils % 0.1 %; Hematocrit 36.1 % (37.5-50.1); Immature Granulocytes % 0.6 % (0-4); Lymphocytes # 0.9 K/mcL (0.6-4.6); Lymphocytes % 10.8 %; Mean Corpuscular HGB Conc 33.2 g/dL (31.6-35.5); Mean Corpuscular Hemoglobin 31.6 pg (28.0-33.3); Mean Platelet Volume 9.2 fL (9.4-12.4); Monocytes # 1.2 K/mcL (0.0-1.3); Monocytes % 13.9 %; Neutrophils # 6.5 K/mcL (1.6-8.9); Platelet Count 254 K/mcL (140-400); Red Cell Distribution Width 14.3 % (11.5-14.5); Segmented Neutrophils % 74.4 %
[2017-07-11 22:30] LABS: BUN/Creatinine Ratio 13 (6-26); Blood Urea Nitrogen 13 mg/dL (8-23); Calcium 8.3 mg/dL (8.6-10.3); Carbon Dioxide 25 mEq/L (23-29); Chloride 102 mEq/L (98-107); Glucose 95 mg/dL (70-105); Osmolality,Calculated 278 (280-300); Potassium 3.8 mEq/L (3.5-5.1); Sodium 134 mEq/L (136-145); eGFR For African Americans > 60 (> 60); eGFR For Non-African Americans > 60 (> 60)
[2017-07-12] MEDS ORDERED: *HR* OxyCODONE Immed Rel 5 MG TABLET PO ONE (01:30)
[2017-07-12] MEDS: Ipratropium/Albuterol Neb 3 ML IH SCH ×6 (04:02→23:55)
[2017-07-12] MEDS: Acetaminophen 325 MG TABLET PO PRN ×2 (04:23→16:05)
[2017-07-12] MEDS: *HR* OxyCODONE Immed Rel 5 MG TABLET PO PRN ×2 (05:28→13:20)
[2017-07-12] MEDS: Aspirin Enteric Coated 325 MG Tablet PO SCH (09:21)
[2017-07-12] MEDS: Nicotine 21 MG PATCH.TD24 TD SCH (09:21)
--- NOTE | 2017-07-12 16:07 | Internal Med Progress Note ---
Date of Encounter: 07/12/17 Time of Encounter: 16:04 - Assessment and plan (1) Lung mass Current Visit: Yes Status: Acute Assessment and plan: presented with atypical chest pain. 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 S/p lung biopsy on 07/09/17 ; results are pending. Evaluated by Pulonology and Oncology who strongly suspect malignancy. Has follow-up with oncology as scheduled 07/13/17. He is continuing to have uncontrolled left arm pain, large tumor could be contributing to pain. Adjust pain medication. If pain controlled in the morning we will discharge and time for oncology appointment. (2) COPD (chronic obstructive pulmonary disease) Current Visit: Yes Status: Chronic Assessment and plan: per hx. no evidence of exacerbation. No wheezing, CXR without infiltrates. Continue PRN breathing treatments. Qualifiers: COPD type: unspecified COPD Qualified Code(s): J44.9 - Chronic obstructive pulmonary disease, unspecified (3) Left arm pain Current Visit: Yes Status: Acute Assessment and plan: Patient reports 10 out of 10 left arm pain on 07/12 exam. Pain is poorly controlled and patient does not feel he can go home today. Increase PRN oxycodone to every 4 hours, continue Lidoderm patch. Left shoulder, humerus x- ray pending (4) DVT prophylaxis Current Visit: Yes Status: Acute Assessment and plan: heparin - Subjective Interval history: Seen and examined at bedside, patient is new to me. Information obtained from chart review and patient report. Laying in bed, appears uncomfortable. He is complaining of 10 out of 10 left arm pain, nothing makes pain better or worse. Says pain medicine is only lasting seen 3-4 hours. He does not feel that he can be discharged home today due to uncontrolled pain. Son at bedside and updated. - Constitutional Vitals: Temp Pulse Resp BP Pulse Ox 99.6 F 89 18 155/88 91 07/12/17 12:55 07/12/17 12:55 07/12/17 12:55 07/12/17 12:55 07/12/17 12:55 General appearance: Present: cooperative, mild distress, A&O X 3, loss of weight - Head Head exam: Present: atraumatic, normocephalic - Eye Eye exam: Present: PERRL, conjuntiva pink, sclera anicteric Pupils: Present: PERRL - Neck Neck exam general surgery: Present: supple, trachea midline. Absent: lymphadenopathy - Respiratory Respiratory exam: Present: CTAB. Absent: accessory muscle use, rales, rhonchi, wheezes - Cardiovascular Cardiovascular exam: Present: RRR, +S1, +S2. Absent: diastolic murmur, gallop, rubs, systolic murmur - GI/Abdominal GI/Abdominal exam: Present: normal bowel sounds, soft, no peritoneal signs. Absent: distended, tenderness - Extremities Exam Extremities exam: Present: warm, radial pulses palpable and symmetrical. Absent : calf tenderness, cyanotic, pedal edema - Neurological Exam Neurological exam: Present: CN II-XII intact, oriented X3, no focal deficits. Absent: pronater drift, facial droop, speech deficit - Skin Skin exam: Present: dry, intact Internal Medicine: Result - Labs CBC & Chem 7: 07/11/17 21:34 07/11/17 21:34 Labs: Short CBC 07/11/17 Range/Units 21:34 WBC 8.7 (4.3-11.1) K/mcL Hgb 12.0 L D (12.9-16.9) g/dL Hct 36.1 L (37.5-50.1) % Plt Count 254 (140-400) K/mcL Neutrophils # 6.5 (1.6-8.9) K/mcL BMP 07/11/17 21:34 Sodium 134 L Potassium 3.8 Chloride 102 Carbon Dioxide 25 BUN 13 Creatinine 0.98 Glucose 95 Calcium 8.3 L - ABG Interpretation ABG results: PT/INR, D-dimer PT 11.0 Seconds (9.4-12.1) 07/08/17 05:20 - Impressions Impressions Chest X-Ray 07/11/17 21:02 IMPRESSION: Left upper lobe mass again seen with no superimposed acute airspace disease. D/ / Alton Cueva MD / Alton Cueva MD Interpreting Provider: Alton Cueva MD - VTE Documentation of Mechanical Device: Intermittent pneumatic compression device Consult Discharge Plan - Plan Referrals: Willem Le DO [Primary Care Provider] -
[2017-07-12 17:20] LABS: Adenovirus Not Detected (Not Detect); Bordetella Pertussis Not Detected (Not Detect); Chlamydophila pneumoniae Not Detected (Not Detect); Coronavirus 229E Not Detected (Not Detect); Coronavirus HKU1 Not Detected (Not Detect); Coronavirus NL63 Not Detected (Not Detect); Coronavirus OC43 Not Detected (Not Detect); Human Metapneumovirus Not Detected (Not Detect); Human Rhinovirus/Enterovirus Not Detected (Not Detect); Influenza A Subtype 2009 H1 Not Detected (Not Detect); Influenza A Untypeable Not Detected (Not Detect); Influenza B Not Detected (Not Detect); Mycoplasma pneumoniae Not Detected (Not Detect); Parainfluenza Virus 1 Not Detected (Not Detect); Parainfluenza Virus 2 Not Detected (Not Detect); Parainfluenza Virus 3 Not Detected (Not Detect); Parainfluenza Virus 4 Not Detected (Not Detect); Respiratory Syncytial Virus Not Detected (Not Detect)
[2017-07-12] MEDS: *HR* Heparin 5,000 UNIT/ML VIAL SQ SCH (21:53)
[2017-07-13] MEDS: Acetaminophen 325 MG TABLET PO PRN (00:10)
[2017-07-13] MEDS: Ipratropium/Albuterol Neb 3 ML IH SCH ×6 (04:12→23:24)
[2017-07-13] MEDS: *HR* Heparin 5,000 UNIT/ML VIAL SQ SCH ×3 (05:56→22:52)
[2017-07-13] MEDS: *HR* OxyCODONE Immed Rel 5 MG TABLET PO PRN ×2 (05:59→13:15)
[2017-07-13] MEDS: Aspirin Enteric Coated 325 MG Tablet PO SCH (09:45)
[2017-07-13] MEDS: Nicotine 21 MG PATCH.TD24 TD SCH (09:46)
[2017-07-13] MEDS: Methocarbamol 750 MG TABLET PO PRN (09:46)
[2017-07-13] MEDS ORDERED: Saline Nasal Spray 44 ML BOTTLE NS PRN (11:17)
--- NOTE | 2017-07-13 11:36 | Internal Med Progress Note ---
Date of Encounter: 07/13/17 Time of Encounter: 11:00 - Assessment and plan (1) Lung mass Current Visit: Yes Status: Acute Assessment and plan: presented with atypical chest pain. 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 S/p lung biopsy on 07/09/17 ; results are pending. Evaluated by Pulonology and Oncology who strongly suspect malignancy. Has follow-up with oncology as scheduled 07/13/17. He is continuing to have uncontrolled left arm pain, large tumor could be contributing to pain. Pain medicine adjusted. Discussed with oncology on 07/13 and outpatient follow-up has been rescheduled. (2) Left arm pain Current Visit: Yes Status: Acute Assessment and plan: reported uncontrolled, and intolerable left shoulder pain. Left shoulder, humerus x-ray non-acute. Suspect known left lung masses contributing to pain. Better control achieved with changing PRN oxycodone to every 4 hours. (3) Influenza A Current Visit: Yes Status: Acute Assessment and plan: resp PCR positive for influenza A. Symptomatic with cough and fevers. Continue Tamiflu. Supportive care (4) COPD (chronic obstructive pulmonary disease) Current Visit: Yes Status: Chronic Assessment and plan: per hx. symptomatic with wheezing, cough. Start ceftriaxone, azithromycin, steroid burst. Qualifiers: COPD type: unspecified COPD Qualified Code(s): J44.9 - Chronic obstructive pulmonary disease, unspecified (5) DVT prophylaxis Current Visit: Yes Status: Acute Assessment and plan: heparin - Subjective Interval history: Seen and examined at bedside. Still having significant pain to left arm. Son thinks pain may be a little better. Plan is for patient to go home with son however son is not sure he will be able to handle all of the patient's care needs. We will have PT/OT evaluate patient. Discussed with oncology and they are aware that patient was not discharged home. Oncology appointment has been rescheduled for . - Constitutional Vitals: Temp Pulse Resp BP Pulse Ox 98.6 F 94 20 145/81 90 07/13/17 11:28 07/13/17 11:28 07/13/17 11:28 07/13/17 11:28 07/13/17 11:28 General appearance: Present: cooperative, mild distress, A&O X 3, loss of weight - Head Head exam: Present: atraumatic, normocephalic - Eye Eye exam: Present: PERRL, conjuntiva pink, sclera anicteric Pupils: Present: PERRL - Neck Neck exam general surgery: Present: supple, trachea midline. Absent: lymphadenopathy - Respiratory Respiratory exam: Present: rales, rhonchi. Absent: accessory muscle use, wheezes - Cardiovascular Cardiovascular exam: Present: RRR, +S1, +S2. Absent: diastolic murmur, gallop, rubs, systolic murmur - GI/Abdominal GI/Abdominal exam: Present: normal bowel sounds, soft, no peritoneal signs. Absent: distended, tenderness - Extremities Exam Extremities exam: Present: warm, radial pulses palpable and symmetrical. Absent : calf tenderness, cyanotic, pedal edema - Neurological Exam Neurological exam: Present: CN II-XII intact, oriented X3, no focal deficits. Absent: pronater drift, facial droop, speech deficit - Skin Skin exam: Present: dry, intact Internal Medicine: Result - Labs CBC & Chem 7: 07/11/17 21:34 07/11/17 21:34 - ABG Interpretation ABG results: PT/INR, D-dimer PT 11.0 Seconds (9.4-12.1) 07/08/17 05:20 - Impressions Impressions Humerus X-Ray 07/12/17 16:05 IMPRESSION: No evidence of acute osseous abnormality. D/ / 07/12/2017 17:56:37 Kar Jacob MD / Nataly Bolton Interpreting Provider: Kar Jacob MD Shoulder X-Ray 07/12/17 16:05 IMPRESSION: Degenerative changes of the left shoulder with no evidence of acute osseous abnormality. D/ / 07/12/2017 18:30:50 Kar Jacob MD / Nataly Bolton Interpreting Provider: Kar Jacob MD - VTE Documentation of Mechanical Device: Intermittent pneumatic compression device Consult Discharge Plan - Plan Referrals: Willem Le, [Primary Care Provider] -
[2017-07-13] MEDS: GuaiFENesin Liq 200 MG/10 ML UDC PO SCH ×4 (13:15→23:00)
[2017-07-13] MEDS ORDERED: *HR* HYDROmorphone (PF) 1 MG/ML SYRINGE IVP ONE (15:38)
[2017-07-13] MEDS: predniSONE 20 MG TABLET PO SCH (15:41)
[2017-07-13] MEDS: Azithromycin 500 MG in D5% in Water 250 ML IVPB SCH (15:41)
[2017-07-13] MEDS: cefTRIAXone 1,000 MG in Water for inj. (sterile) 10 ML IVP SCH (15:41)
[2017-07-14] MEDS: Ipratropium/Albuterol Neb 3 ML IH SCH ×3 (04:01→11:31)
[2017-07-14] MEDS: GuaiFENesin Liq 200 MG/10 ML UDC PO SCH ×3 (04:25→12:37)
[2017-07-14 04:50] LABS: Bilirubin,Urine Negative (Negative); Blood,Urine Trace (Negative); Clarity,Urine Cloudy (Clear); Color,Urine Yellow (Yellow); Glucose,Urine (UA) Normal (Normal); Ketones,Urine Trace mg/dL (Negative); Leukocyte Esterase,Urine Large (Negative); Nitrite,Urine Negative (Negative); Protein,Urine Negative (Neg-Trace); Specific Gravity,Urine 1.016 (1.010-1.025); Urobilinogen,Urine Normal (Normal)
[2017-07-14 04:54] LABS: Bacteria,Urine None Seen per hpf (None-Few); Hyaline Casts,Urine None Seen per lpf (None-Few); RBC,Urine 0-3 per hpf (0-3); Squamous Epithelial Cell,Urine None Seen per lpf (None-Few); WBC,Urine TNTC per hpf (0-3)
[2017-07-14 04:59] LABS: Hematocrit 37.6 % (37.5-50.1); Hemoglobin 13.1 g/dL (12.9-16.9); Mean Corpuscular HGB Conc 34.8 g/dL (31.6-35.5); Mean Corpuscular Hemoglobin 31.7 pg (28.0-33.3); Mean Platelet Volume 9.5 fL (9.4-12.4); Platelet Count 241 K/mcL (140-400); Red Blood Count 4.13 M/mcL (4.19-5.50); Red Cell Distribution Width 13.9 % (11.5-14.5)
[2017-07-14 05:34] LABS: BUN/Creatinine Ratio 15 (6-26); Blood Urea Nitrogen 13 mg/dL (8-23); Calcium 8.4 mg/dL (8.6-10.3); Carbon Dioxide 23 mEq/L (23-29); Chloride 103 mEq/L (98-107); Glucose 173 mg/dL (70-105); Osmolality,Calculated 284 (280-300); Potassium 3.5 mEq/L (3.5-5.1); Sodium 135 mEq/L (136-145); eGFR For African Americans > 60 (> 60); eGFR For Non-African Americans > 60 (> 60)
[2017-07-14] MEDS: *HR* Heparin 5,000 UNIT/ML VIAL SQ SCH ×2 (05:49→14:40)
[2017-07-14] MEDS: Acetaminophen 325 MG TABLET PO PRN (08:35)
[2017-07-14] MEDS: Nicotine 21 MG PATCH.TD24 TD SCH (08:36)
[2017-07-14] MEDS: predniSONE 20 MG TABLET PO SCH (08:37)
[2017-07-14] MEDS: Aspirin Enteric Coated 325 MG Tablet PO SCH (08:37)
[2017-07-14] MEDS: cefTRIAXone 1,000 MG in Water for inj. (sterile) 10 ML IVP SCH (08:37)
[2017-07-14] MEDS: Methocarbamol 750 MG TABLET PO PRN (10:00)
[2017-07-14] MEDS: *HR* OxyCODONE Immed Rel 5 MG TABLET PO PRN ×2 (10:00→14:40)
[2017-07-14 12:10] VITALS: BP 147/64
--- NOTE | 2017-07-14 14:35 | Discharge Summary ---
Date of Encounter: 07/14/17 Time of Encounter: 14:10 - Discharge Diagnosis (1) Lung mass Priority: Primary Status: Acute Comments: presented with atypical chest pain. 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 S/p lung biopsy on 07/09/17 ; results are pending. Evaluated by Pulonology and Oncology who strongly suspect malignancy. Oncology concerned for possible small cell. Has PET scan and Oncology follow-up 07/16/2017. (2) Left arm pain Priority: Primary Status: Acute Comments: reported uncontrolled and intolerable left shoulder pain. Left shoulder, humerus x-ray non-acute. Suspect known left lung masses contributing to pain. Pain better control with increasing PRN oxycodone to every 4 hours. 1 week rx given at discharge (3) Influenza A Priority: Primary Status: Acute Comments: resp PCR positive for influenza A. Symptomatic with cough and fevers. To continue Tamiflu for a total of 5 days. (4) COPD (chronic obstructive pulmonary disease) Priority: Primary Status: Chronic Comments: per hx. Suspect exacerbation with wheezing and cough. Symptoms improved with IV ceftriaxone, azithromycin and steroids. Continue Z-Giovani, steroid burst at discharge. Qualifiers: COPD type: unspecified COPD Qualified Code(s): J44.9 - Chronic obstructive pulmonary disease, unspecified - Discharge Medications Prescriptions: OxyCODONE Immed Rel [Roxicodone 5 MG] 10 mg PO Q4HR PRN #84 tablet PRN Reason: Pain Azithromycin [Azithromycin 6-Tab Pack] 250 mg PO PER PKG DI #6 tab Lidocaine Patch [Lidoderm 5% patch] 1 each TP DAILY #30 adh..patch Oseltamivir [Tamiflu] 75 mg PO BID #7 capsule predniSONE [PredniSONE] 40 mg PO DAILY #6 tablet Home Medications: Albuterol Sulfate [Albuterol Inhaler] 1 - 2 puff IH QID PRN 07/07/17 [History] Aspirin Enteric Coated [Aspirin EC] 325 mg PO DAILY 07/07/17 [History] Meloxicam 15 mg PO DAILY 07/07/17 [History] Pantoprazole Sodium 40 mg PO DAILY 07/07/17 [History] raNITIdine HCl [Ranitidine HCl] 300 mg PO BID 07/07/17 [History] Azithromycin [Azithromycin 6-Tab Pack] 250 mg PO PER PKG DI #6 tab 07/14/17 [Rx] Lidocaine Patch [Lidoderm 5% patch] 1 each TP DAILY #30 adh..patch 07/14/17 [Rx] Oseltamivir [Tamiflu] 75 mg PO BID #7 capsule 07/14/17 [Rx] OxyCODONE Immed Rel [Roxicodone 5 MG] 10 mg PO Q4HR PRN #84 tablet 07/14/17 [Rx] predniSONE [PredniSONE] 40 mg PO DAILY #6 tablet 07/14/17 [Rx] Allergies/Adverse Reactions: 3 Allergy/AdvReac Type Severity Reaction Status Date / Time No Known Allergies Allergy Verified 07/07/17 07:23 Date of admission: 07/07/17 10:47 Primary care physician: Willem Le Consults: 07/07/17 11:01 Consult to Pulmonology [CONS] Routine Consulting Provider: [facility] & Charley Buckingham Reason for Consult: 7 cm left upper lobe mass. Lifelong smoker Call Completed: No 07/09/17 10:39 Consult to Oncology Hematology [CONS] Routine Consulting Provider: Milly Kent Reason for Consult: lung cancer Time Notified: 10:41 Call Completed: Yes 07/13/17 10:29 Consult to Physical Therapy [CONS] Routine Comment: Evaluate, develop and implement POC Reason for Consult: generalized wekaness OT [Consult to Occupational Therapy] [CONS] Routine Comment: Evaluate, develop and implement POC Reason for Consult: generalized wekaness 07/13/17 14:13 Consult to Apartment Hotel Manager [CONS] Routine Reason for SW Consult: Discharge planning Discharging clinician: Roxanna Koch Anticipated date of discharge: 07/14/17 - Patient Status Disposition: Home, Self-Care Condition: Fair Functional capacity at discharge: uses cane/walker Overall status at discharge: patient is progressing back to baseline - Ambulatory Orders Ambulatory Orders: PET CT skull to thigh DX/initi [PE] Time Frame: 1 Week, Facility: [facility], Location: Radiology - Discharge Instructions Instructions: Azithromycin (By mouth), Prednisone (By mouth), Oseltamivir (By mouth), Influenza (DC), Pulmonary Nodules (DC) Follow Up With: Willem Le DO [Primary Care Provider] - Vinnie Leblanc MD [Partnered Physician] - 07/16/17 9:15 am - Diet and Activity Activity: increase activity as tolerated Diet: advance to your usual diet Interval History: Seen and examined at bedside. Sitting up on edge of the bed eating lunch. Appears significantly improved from yesterday's exam, says he feels better when to discharge home today. Still with some shortness of breath and cough but overall improved. Still having mild left arm pain but this is also significantly improved. Family at bedside and aware of PET scan tomorrow and oncology follow-up on . Hospital course: See assessment and plan for hospital course - Time Spent with Patient Total time spent providing and/or coordinating discharge services: - Constitutional Vitals: Temp Pulse Resp BP Pulse Ox 97.7 F 89 16 147/64 94 07/14/17 12:09 07/14/17 12:09 07/14/17 12:09 07/14/17 12:07/14/17 12:09 General appearance: Present: cooperative, A&O X 3, loss of weight - Head Head exam: Present: atraumatic, normocephalic - Eye Eye exam: Present: PERRL, conjuntiva pink, sclera anicteric Pupils: Present: PERRL - Neck Neck exam general surgery: Present: supple, trachea midline. Absent: lymphadenopathy - Respiratory Respiratory exam: Present: wheezes. Absent: accessory muscle use, rales, rhonchi Additional comments: Scant wheezing posteriorly, improved yesterday's exam - Cardiovascular Cardiovascular exam: Present: RRR, +S1, +S2. Absent: diastolic murmur, gallop, rubs, systolic murmur - GI/Abdominal GI/Abdominal exam: Present: normal bowel sounds, soft, no peritoneal signs. Absent: distended, tenderness - Extremities Exam Extremities exam: Present: warm, radial pulses palpable and symmetrical. Absent : calf tenderness, cyanotic, pedal edema - Neurological Exam Neurological exam: Present: CN II-XII intact, oriented X3, no focal deficits. Absent: pronater drift, facial droop, speech deficit - Skin Skin exam: Present: dry, intact - VTE Documentation of Mechanical Device: Intermittent pneumatic compression device
[2017-07-14] MEDS: Azithromycin 500 MG in D5% in Water 250 ML IVPB SCH (14:40)
== END 2017-07-14 16:07 | disposition home or self-care (01) ==
LOC: 3BNU 07:19 → EMEROO 07:19 → SUATTDRO 10:47 → 3BNU 11:21
PROVIDERS: ADMIT Hospitalist; ATTEND Hospitalist
PROC: ENDOBRF (2017-07-09 09:30)

== ENCOUNTER 2017-07-19 00:03 | Inpatient (IN) ==
--- NOTE | 2017-07-19 00:12 | Emergency Department Note ---
Disposition Clinical Impression: Pneumonia Qualifiers: Pneumonia type: due to unspecified organism Laterality: right Lung location: lower lobe of lung Qualified Code(s): J18.1 - Lobar pneumonia, unspecified organism Chest pain Qualifiers: Chest pain type: unspecified Qualified Code(s): R07.9 - Chest pain, unspecified Disposition: Admitted As Inpatient Condition: Fair Time of Disposition: 03:13 General Adult HPI - General Chief complaint: ED Chest Pain Stated complaint: CHEST PAIN Time Seen by Provider: 07/19/17 00:08 Source: patient Limitations: no limitations Nursing Notes Reviewed: Yes Vital Signs Reviewed: Yes - History of Present Illness HPI Narrative: 76 year old male emergency Department for left sided chest pain. He states this is been ongoing for the past couple of days. States that he is having pain that goes into his shoulder back and left arm. Patient states that he has had associated shortness of breath, nausea and diaphoresis. Patient states that he does not think that he has ever had anything like this before. Denies having any previous cardiac history. - Related Data Home Medications Medication Instructions Recorded Confirmed Albuterol Sulfate [Albuterol 1 - 2 puff IH QID PRN 07/07/17 07/16/17 Inhaler] Aspirin Enteric Coated [Aspirin EC] 325 mg PO DAILY 07/07/17 07/16/17 Meloxicam 15 mg PO DAILY 07/07/17 07/16/17 Pantoprazole Sodium 40 mg PO DAILY 07/07/17 07/16/17 raNITIdine HCl [Ranitidine HCl] 300 mg PO BID 07/07/17 07/16/17 Previous Rx's Medication Instructions Recorded Azithromycin [Azithromycin 6-Tab 250 mg PO PER PKG DI #6 tab 07/14/17 Pack] Lidocaine Patch [Lidoderm 5% patch] 1 each TP DAILY #30 adh..patch 07/14/17 Oseltamivir [Tamiflu] 75 mg PO BID #7 capsule 07/14/17 predniSONE [PredniSONE] 40 mg PO DAILY #6 tablet 07/14/17 Docusate [Colace] 200 mg PO BID #120 capsule 07/16/17 Gabapentin [Neurontin] 300 mg PO TID #90 capsule 07/16/17 Mirtazapine [Remeron] 15 mg PO HS #30 tablet 07/16/17 OxyCODONE Immed Rel [Roxicodone 5 10 - 15 mg PO Q4H PRN #90 tablet 07/16/17 MG] Promethazine [Phenergan] 25 mg PO Q6HR PRN #30 tablet 07/16/17 Allergies Allergy/AdvReac Type Severity Reaction Status Date / Time No Known Allergies Allergy Verified 07/19/17 00:06 All systems ED: reviewed and negative except as stated. Constitutional: Reports: other (Diaphoretic) Cardiovascular: Reports: chest pain Respiratory: Reports: cough, dyspnea Gastrointestinal: Reports: nausea Past Medical History - Past Medical History Medical history: Reports: non-contributory, COPD Psychiatric history: Reports: no psych history - Social History Smoking Status: Current every day smoker Smokeless Tobacco Status: No Alcohol use: Reports: none Drug use: Reports: none Physical Exam - General Limitations: no limitations General appearance: alert, in no apparent distress - Head Head exam: atraumatic, normocephalic - Eye Eye exam: Present: normal appearance, EOMI - Neck Neck exam: Present: normal inspection, full ROM, trachea midline - Respiratory Respiratory exam: Present: wheezes (Mild wheezing bilaterally) - Cardiovascular Cardiovascular exam: Present: normal rhythm, tachycardia, normal heart sounds, + S1, +S2 - Abdominal Exam Abdominal exam: Present: soft, Non-Tender, normal bowel sounds - Neurological Exam Neurological exam: Present: alert, oriented X3 - Psychiatric Psychiatric exam: Present: normal affect, normal mood - Skin Skin exam: Present: warm, dry, intact Course Vital Signs Temperature 97.9 F 07/19/17 00:08 Pulse Rate 97 07/19/17 00:08 Respiratory Rate 24 07/19/17 00:08 Blood Pressure 166/109 07/19/17 00:08 O2 Sat by Pulse Oximetry 91 07/19/17 00:08 Temperature 97.9 F 07/19/17 00:10 Pulse Rate 91 07/19/17 03:00 Respiratory Rate 24 07/19/17 03:47 Blood Pressure 150/98 07/19/17 03:47 O2 Sat by Pulse Oximetry 07/19/17 03:00 Oxygen Delivery Oxygen Delivery Nasal Cannula Medical Decision Making - MDM Narrative Medical decision making narrative: Due the patient having chest pain shortness of breath we will with this patient for cardiac versus pulmonary etiology. We will obtain a CBC, BMP, troponin, chest x-ray EKG and a d-dimer patient has an elevated white count of 19.8. His troponin was negative. He did have a mildly elevated d-dimer however we do not feel that this patient has a pulmonary embolus. We did obtain a CT scan of the chest which showed a small pneumonia. We have started the patient on Levaquin, Zosyn and vancomycin due to the patient having a recent hospitalization. The CT scan also showed a mass in the chest which was previously seen on another scan. Patient's urinalysis was negative. Patient will need to be admitted to the hospital for further evaluation and management. I called and spoke with the hospitalist name accepted the patient to their service. Patient will be admitted to the hospital this time. - Lab Data Lab results reviewed: Yes I reviewed the patient's lab results. Result diagrams: 07/19/17 00:29 07/19/17 00:29 Lab Results 07/19/17 07/19/17 07/19/17 Range/Units 00:29 00:29 00:29 WBC 19.8 H D (4.3-11.1) K/mcL RBC 4.25 (4.19-5.50) M/mcL Hgb 13.1 (12.9-16.9) g/dL Hct 39.1 (37.5-50.1) % MCV 92.0 (83.0-100.0) fL MCH 30.8 (28.0-33.3) pg MCHC 33.5 (31.6-35.5) g/dL RDW 13.7 (11.5-14.5) % Plt Count 370 D (140-400) K/mcL MPV 8.7 L (9.4-12.4) fL Immature Gran % 4.4 H (0-4) % Seg Neutrophils % 69.0 % Lymphocytes % 16.5 % Monocytes % 8.9 % Eosinophils % 0.5 % Basophils % 0.7 % Neutrophils # 13.7 H (1.6-8.9) K/mcL Lymphocytes # 3.3 (0.6-4.6) K/mcL Monocytes # 1.8 H (0.0-1.3) K/mcL Eosinophils # 0.1 (0.0-0.6) K/mcL Basophils # 0.1 (0.0-0.2) K/mcL PT 11.1 (9.4-12.1) Seconds INR 1.0 APTT 26.1 (26.0-36.0) Seconds D-Dimer 592 H (0-500) ng/mLFEU Sodium (136-145) mEq/L Potassium (3.5-5.1) mEq/L Chloride (98-107) mEq/L Carbon Dioxide (23-29) mEq/L BUN (8-23) mg/dL Creatinine (0.70-1.30) mg/dL Est GFR ( Amer) (> 60) Est GFR (Non-Af Amer) (> 60) BUN/Creatinine Ratio (6-26) Glucose (70-105) mg/dL Calculated Osmolality (280-300) Calcium (8.6-10.3) mg/dL Troponin I (< 0.04) ng/mL Urine Color (Yellow) Urine Clarity (Clear) Urine pH (5.0-8.0) pH Units Ur Specific Burke (1.010-1.025) Urine Protein (Neg-Trace) mg/dL Urine Glucose (UA) (Normal) mg/dL Urine Ketones (Negative) mg/dL Urine Blood (Negative) Urine Nitrite (Negative) Urine Bilirubin (Negative) Urine Urobilinogen (Normal) mg/dL Ur Leukocyte Esterase (Negative) Urine Microscopic RBC (0-3) per hpf Urine Microscopic WBC (0-3) per hpf Ur Squamous Epith Cells (None-Few) per lpf Urine Bacteria (None-Few) per hpf Hyaline Casts (None-Few) per lpf Ur Culture Indicated? (NO) 07/19/17 07/19/17 07/19/17 Range/Units 00:29 00:29 01:34 WBC (4.3-11.1) K/mcL RBC (4.19-5.50) M/mcL Hgb (12.9-16.9) g/dL Hct (37.5-50.1) % MCV (83.0-100.0) fL MCH (28.0-33.3) pg MCHC (31.6-35.5) g/dL RDW (11.5-14.5) % Plt Count (140-400) K/mcL MPV (9.4-12.4) fL Immature Gran % (0-4) % Seg Neutrophils % % Lymphocytes % % Monocytes % % Eosinophils % % Basophils % % Neutrophils # (1.6-8.9) K/mcL Lymphocytes # (0.6-4.6) K/mcL Monocytes # (0.0-1.3) K/mcL Eosinophils # (0.0-0.6) K/mcL Basophils # (0.0-0.2) K/mcL PT (9.4-12.1) Seconds INR APTT (26.0-36.0) Seconds D-Dimer (0-500) ng/mLFEU Sodium 130 L (136-145) mEq/L Potassium 4.1 (3.5-5.1) mEq/L Chloride 97 L (98-107) mEq/L Carbon Dioxide 24 (23-29) mEq/L BUN 15 (8-23) mg/dL Creatinine 0.87 (0.70-1.30) mg/dL Est GFR ( Amer) > 60 (> 60) Est GFR (Non-Af Amer) > 60 (> 60) BUN/Creatinine Ratio 17 (6-26) Glucose 108 H (70-105) mg/dL Calculated Osmolality 271 L (280-300) Calcium 8.7 (8.6-10.3) mg/dL Troponin I < 0.03 (< 0.04) ng/mL Urine Color Yellow (Yellow) Urine Clarity Clear (Clear) Urine pH 6.5 (5.0-8.0) pH Units Ur Specific Burke 1.020 (1.010-1.025) Urine Protein Trace (Neg-Trace) mg/dL Urine Glucose (UA) Normal (Normal) mg/dL Urine Ketones Negative (Negative) mg/dL Urine Blood Negative (Negative) Urine Nitrite Negative (Negative) Urine Bilirubin Negative (Negative) Urine Urobilinogen Normal (Normal) mg/dL Ur Leukocyte Esterase Negative (Negative) Urine Microscopic RBC 0-3 (0-3) per hpf Urine Microscopic WBC 0-3 (0-3) per hpf Ur Squamous Epith Cells Moderate H (None-Few) per lpf Urine Bacteria None Seen (None-Few) per hpf Hyaline Casts None Seen (None-Few) per lpf Ur Culture Indicated? NO (NO) - Radiology Data Radiology results reviewed: Yes I reviewed the patient's radiology results. Chest X-Ray 07/19/17 00:08 IMPRESSION: Re- demonstration of left apical lung mass. D/ / Jose Carlos Baker MD / Jose Carlos Baker MD Interpreting Provider: Jose Carlos Baker MD Chest CT 07/19/17 01:52 IMPRESSION: The large left apical lung mass is unchanged from the recent study. Direct extension of tumor to involve the left superior mediastinum is suspected. There is new mild right basilar airspace disease suspicious for small or early pneumonia. D/ / Mckinley Morfin MD / Mckinley Morfin MD Interpreting Provider: Mckinley Morfin MD - EKG Data EKG #1 EKG attestation: Yes I reviewed and interpreted this EKG. EKG results narrative: EKG shows a sinus rhythm at a rate of 97 bpm, IN interval of 182, QRS duration 92, QTC of 380. This was compared to previous EKG on 07/07/17 which showed sinus rhythm at a rate of 81 bpm. Attestation Statement - Attestation Attestation: I examined this patient and my medical decision-making was reviewed with the Resident Physician. I agree with the documented findings, disposition and treatment plan as described except to the extent set forth below. Patient to the ED with chest pain. Left upper chest. Recent admission to the hospital. Patient also has lung cancer on the left side. Coughing. Short of breath. On examination he is in no acute distress. He has some expiratory wheezing. Plan. The patient has elevated white blood cell count. He is tachycardic. His age-adjusted d-dimer is negative. He had a noncontrasted chest CT that shows an infiltrate. He started on antibiotics for hospital- acquired pneumonia. He meets sepsis criteria. He is admitted to the hospitalist. 30 minutes critical care exclusive of separately billed procedures.
[2017-07-19 00:37] LABS: Basophils # 0.1 K/mcL (0.0-0.2); Basophils % 0.7 %; Eosinophils # 0.1 K/mcL (0.0-0.6); Eosinophils % 0.5 %; Hematocrit 39.1 % (37.5-50.1); Hemoglobin 13.1 g/dL (12.9-16.9); Immature Granulocytes % 4.4 % (0-4); Lymphocytes # 3.3 K/mcL (0.6-4.6); Lymphocytes % 16.5 %; Mean Corpuscular HGB Conc 33.5 g/dL (31.6-35.5); Mean Corpuscular Hemoglobin 30.8 pg (28.0-33.3); Mean Platelet Volume 8.7 fL (9.4-12.4); Monocytes # 1.8 K/mcL (0.0-1.3); Monocytes % 8.9 %; Neutrophils # 13.7 K/mcL (1.6-8.9); Platelet Count 370 K/mcL (140-400); Red Blood Count 4.25 M/mcL (4.19-5.50); Red Cell Distribution Width 13.7 % (11.5-14.5)
[2017-07-19 00:42] LABS: Prothrombin Time 11.1 Seconds (9.4-12.1)
[2017-07-19 00:45] LABS: Activated Partial Thrombo Time 26.1 Seconds (26.0-36.0)
[2017-07-19 00:58] LABS: BUN/Creatinine Ratio 17 (6-26); Blood Urea Nitrogen 15 mg/dL (8-23); Calcium 8.7 mg/dL (8.6-10.3); Carbon Dioxide 24 mEq/L (23-29); Chloride 97 mEq/L (98-107); Glucose 108 mg/dL (70-105); Osmolality,Calculated 271 (280-300); Potassium 4.1 mEq/L (3.5-5.1); Sodium 130 mEq/L (136-145); eGFR For African Americans > 60 (> 60); eGFR For Non-African Americans > 60 (> 60)
[2017-07-19] MEDS ORDERED: *HR* FentaNYL (PF) 100 MCG/2 ML VIAL IVP ONE ×2 (01:12→03:25)
[2017-07-19 01:48] LABS: Bilirubin,Urine Negative (Negative); Blood,Urine Negative (Negative); Clarity,Urine Clear (Clear); Color,Urine Yellow (Yellow); Glucose,Urine (UA) Normal (Normal); Ketones,Urine Negative (Negative); Leukocyte Esterase,Urine Negative (Negative); Nitrite,Urine Negative (Negative); PH,Urine 6.5 pH Units (5.0-8.0); Protein,Urine Trace mg/dL (Neg-Trace); Urobilinogen,Urine Normal (Normal)
[2017-07-19 01:51] LABS: Bacteria,Urine None Seen per hpf (None-Few); Hyaline Casts,Urine None Seen per lpf (None-Few); RBC,Urine 0-3 per hpf (0-3); Squamous Epithelial Cell,Urine Moderate per lpf (None-Few); WBC,Urine 0-3 per hpf (0-3)
[2017-07-19] MEDS ORDERED: Levofloxacin 750 MG/150 ML 750 MG/150 ML BAG IVPB ONE (02:58)
[2017-07-19] MEDS ORDERED: Piperacillin/Tazobactam 3.375 GM in Water for inj. (sterile) 20 ML 20 ML IVP ONE (02:58)
[2017-07-19] MEDS ORDERED: Vancomycin 1,250 MG in D5% in Water 250 ML IVPB ONE (02:59)
[2017-07-19] MEDS ORDERED: Naloxone 0.4 MG/ML INJ IVP PRN (04:24)
[2017-07-19] MEDS ORDERED: Acetaminophen 325 MG TABLET PO PRN (04:24)
[2017-07-19] MEDS ORDERED: Ketorolac 30 MG/ML VIAL IVP PRN (04:26)
--- NOTE | 2017-07-19 04:46 | Internal Med History&Physical ---
Date of Encounter: 07/19/17 Time of Encounter: 04:30 Assessment and Plan (1) Pneumonia Current visit: Yes Status: Suspected CT scan of the chest shows small right lower lobe infiltrate concerning for early pneumonia. Since patient was hospitalized here recently and was treated for influenza, we will treat him with broad-spectrum antibiotics for possible healthcare associated pneumonia. High risk for complications. Qualifiers: Pneumonia type: due to methicillin-resistant Staphylococcus aureus (MRSA) Laterality: right Lung location: lower lobe of lung Qualified Code(s): J15.212 - Pneumonia due to Methicillin resistant Staphylococcus aureus (2) Small cell lung cancer Current visit: Yes Status: Acute Recently diagnosed Left upper lobe small cell lung cancer. Follow up outpatient with oncology after discharge for further management Qualifiers: Laterality: left Qualified Code(s): C34.92 - Malignant neoplasm of unspecified part of left bronchus or lung (3) COPD (chronic obstructive pulmonary disease) Current visit: Yes Status: Chronic Patient presents with bilateral wheezing. Does have cough without increase in sputum production. Being treated with broad-spectrum antibiotics for pneumonia. Will place patient on bronchodilators as needed. Does not appear to be having COPD exacerbation at this time Qualifiers: COPD type: unspecified COPD Qualified Code(s): J44.9 - Chronic obstructive pulmonary disease, unspecified (4) Chest pain Current visit: Yes Status: Acute Patient presenting with substernal chest pain radiating to left shoulder. Underwent 2-D echocardiogram during last hospitalization. Does have risk factors for coronary artery disease. Trend troponins. Place patient on telemetry. Consider cardiac stress test prior to discharge. Qualifiers: Chest pain type: precordial pain Qualified Code(s): R07.2 - Precordial pain (5) Tobacco use Current visit: Yes Status: Chronic Offered nicotine patch. Patient willing to use it. We will place patient on 21 mg NicoDerm per 24 hours (6) DVT prophylaxis Current visit: Yes Status: Acute Subcutaneous heparin Internal Medicine - H&P: HPI Chief complaint: Chest pain Admitted From: Emergency Dept Plans for Post Hospital Care: Home History of present illness: Mr. Ramirez is a 76 year old male patient who presented to the ER with complaints of chest pain. Pain is located in central part of his chest. He does have some radiation to his left shoulder. He reports that the pain is most severe pain he has had. He denies any palpitations. He does have cough without sputum production. He had recently been diagnosed with small cell lung cancer and was in the process of following up with oncology for treatment options on Thursday. He denies any hemoptysis. No fever or chills. No palpitations. No prior history of coronary artery disease. Patient is a chronic cigarette smoker. He had presented 10 days back with similar complaints but at that time his pain was more in the left upper chest. 2D echocardiogram had been done which showed normal ejection fraction of 60-65% with normal wall motion. Past Med Surg Social Fam HX - Past Medical History Attestation: Yes The following information was validated with the patient. Source: patient Medical history: cancer (Small cell lung cancer), COPD Psychiatric history: no psych history - Social History Smoking Status: Current every day smoker Smokeless Tobacco Status: No Alcohol use: none Drug use: none - Family History Mother Living Status: Hx Family Respiratory Disorders: Yes (asthma) Father Living Status: Internal Medicine - H&P: Meds Albuterol Sulfate [Albuterol Inhaler] 1 - 2 puff IH QID PRN 07/07/17 [History] Aspirin Enteric Coated [Aspirin EC] 325 mg PO DAILY 07/07/17 [History] Meloxicam 15 mg PO DAILY 07/07/17 [History] Pantoprazole Sodium 40 mg PO DAILY 07/07/17 [History] raNITIdine HCl [Ranitidine HCl] 300 mg PO BID 07/07/17 [History] Azithromycin [Azithromycin 6-Tab Pack] 250 mg PO PER PKG DI #6 tab 07/14/17 [Rx] Lidocaine Patch [Lidoderm 5% patch] 1 each TP DAILY #30 adh..patch 07/14/17 [Rx] Oseltamivir [Tamiflu] 75 mg PO BID #7 capsule 07/14/17 [Rx] predniSONE [PredniSONE] 40 mg PO DAILY #6 tablet 07/14/17 [Rx] Docusate [Colace] 200 mg PO BID #120 capsule 07/16/17 [Rx] Gabapentin [Neurontin] 300 mg PO TID #90 capsule 07/16/17 [Rx] Mirtazapine [Remeron] 15 mg PO HS #30 tablet 07/16/17 [Rx] OxyCODONE Immed Rel [Roxicodone 5 MG] 10 - 15 mg PO Q4H PRN #90 tablet 01/25/18 [Rx] Promethazine [Phenergan] 25 mg PO Q6HR PRN #30 tablet 07/16/17 [Rx] 3 Allergy/AdvReac Type Severity Reaction Status Date / Time No Known Allergies Allergy Verified 07/19/17 00:06 All Systems PM: A 10-system review of systems was performed and is negative for pertinent findings except as documented above in the HPI. - Constitutional Constitutional: no chills, no fever(s), no night sweats - EENT Eyes: no change in vision, no discharge, no pain, no photophobia Ears: no ear discharge, no ear pain, no tinnitus Nose, mouth and throat: no dysphagia, no nasal discharge, no neck pain, no sore throat - Cardiovascular Cardiovascular ROS IM: chest pain, dyspnea, no diaphoresis, no lightheadedness, no palpitations, no syncope - Respiratory Respiratory: cough - Gastrointestinal Gastrointestinal: no abdominal pain, no diarrhea, no hematemesis, no hematochezia, no melena, no nausea, no vomiting - Musculoskeletal Musculoskeletal ROS IM: no numbness, no tingling - Integumentary Integumentary IM: no rash, no unusual bruising - Neurological Neurological ROS: no confusion, no convulsions, no focal weakness, no numbness, no tingling, no tremor(s) - Hematologic/Lymphatic Hematologic/Lymphatic: no easy bruising - Constitutional Vitals: Temp Pulse Resp BP Pulse Ox 97.6 F 76 22 171/95 87 07/19/17 04:35 07/19/17 04:35 07/19/17 04:35 07/19/17 04:35 07/19/17 04:35 General appearance: Present: cooperative, mild distress, A&O X 3, answers questions appropriately - Neck Neck exam general surgery: Present: supple, trachea midline. Absent: lymphadenopathy - Respiratory Respiratory exam: Present: prolonged expiratory phase, rhonchi, wheezes. Absent : accessory muscle use, rales - Cardiovascular Cardiovascular exam: Present: RRR, +S1, +S2. Absent: diastolic murmur, gallop, rubs, systolic murmur - GI/Abdominal GI/Abdominal exam: Present: normal bowel sounds, soft, no peritoneal signs. Absent: distended, tenderness - Extremities Exam Extremities exam: Present: warm, radial pulses palpable and symmetrical. Absent : calf tenderness, cyanotic, pedal edema - Neurological Exam Neurological exam: Present: CN II-XII intact, oriented X3, no focal deficits. Absent: pronater drift, facial droop, speech deficit - Skin Skin exam: Present: dry, intact Internal Med - H&P Results - Labs CBC & Chem 7: 07/19/17 00:29 07/19/17 00:29 - EKG Data -: EKG Interpreted by Myself EKG shows normal: sinus rhythm - Impressions Impressions Chest X-Ray 07/19/17 00:08 IMPRESSION: Re- demonstration of left apical lung mass. D/ / Jose Carlos Baker MD / Jose Carlos Baker MD Interpreting Provider: Jose Carlos Baker MD Chest CT 07/19/17 01:52 IMPRESSION: The large left apical lung mass is unchanged from the recent study. Direct extension of tumor to involve the left superior mediastinum is suspected. There is new mild right basilar airspace disease suspicious for small or early pneumonia. D/ / Mckinley Morfin MD / Mckinley Morfin MD Interpreting Provider: Mckinley Morfin MD
[2017-07-19] MEDS ORDERED: Nitroglycerin 0.4 MG TAB.SUBL SL STA (04:51)
[2017-07-19] MEDS ORDERED: Nitroglycerin 0.4 MG TAB.SUBL SL ONE (04:56)
[2017-07-19] MEDS: Nicotine 21 MG PATCH.TD24 TD SCH (05:05)
[2017-07-19] MEDS: *HR* Heparin 5,000 UNIT/ML VIAL SQ SCH ×2 (06:17→18:10)
[2017-07-19] MEDS ORDERED: *HR* FentaNYL (PF) 100 MCG/2 ML VIAL IVP PRN (06:27)
[2017-07-19] MEDS ORDERED: Aspirin Enteric Coated 81 MG Tablet PO SCH (09:00)
[2017-07-19] MEDS: *HR* HYDROcodone/Acet 5/325 mg TABLET PO PRN ×3 (10:21→23:46)
--- NOTE | 2017-07-19 11:28 | Internal Med Progress Note ---
Date of Encounter: 07/19/17 Time of Encounter: 09:50 - Assessment and plan (1) Pneumonia Current Visit: Yes Status: Acute Assessment and plan: Reviewed CT of chest results mostly bacterial PNA cont empirical / broad spec abx Qualifiers: Pneumonia type: due to methicillin-resistant Staphylococcus aureus (MRSA) Laterality: right Lung location: lower lobe of lung Qualified Code(s): J15.212 - Pneumonia due to Methicillin resistant Staphylococcus aureus (2) COPD exacerbation Current Visit: Yes Status: Acute Assessment and plan: He does have mild COPD exacerbation will start him on low dose PO steroids cont Duoneb + O2 (3) Chest pain Current Visit: Yes Status: Acute Assessment and plan: so far negative trop no acute EKG changes since he is high risk pt, will do stress test in AM cont ASA for now Reviewed 2 D Echo from last admission.. Qualifiers: Chest pain type: precordial pain Qualified Code(s): R07.2 - Precordial pain (4) Acute respiratory failure with hypoxia Current Visit: Yes Status: Acute Assessment and plan: Due to pneumonia + COPD exacerbation try to wean him off the O2 as he tolerates will do over night pulse oxy study his SPo2 was 86% on RA when I checked this morning so put him back on 2 lit O2 may need home o2 eval too (5) Small cell lung cancer Current Visit: Yes Status: Acute Qualifiers: Laterality: left Qualified Code(s): C34.92 - Malignant neoplasm of unspecified part of left bronchus or lung (6) GERD (gastroesophageal reflux disease) Current Visit: No Status: Acute Assessment and plan: on ppi Qualifiers: Esophagitis presence: without esophagitis Qualified Code(s): K21.9 - Gastro -esophageal reflux disease without esophagitis (7) Tobacco use Current Visit: Yes Status: Chronic Assessment and plan: counseled to quit on nicotine patch - Subjective Interval history: Mr. Ramirez is a 76 year old male patient who presented to the ER with complaints of chest pain. Pain is located in central part of his chest. He does have some radiation to his left shoulder. He reports that the pain is most severe pain he has had. He denies any palpitations. He does have cough without sputum production. He had recently been diagnosed with small cell lung cancer and was in the process of following up with oncology for treatment options on Thursday. He denies any hemoptysis. No fever or chills. No palpitations. No prior history of coronary artery disease. Patient is a chronic cigarette smoker. He had presented 10 days back with similar complaints but at that time his pain was more in the left upper chest. 2D echocardiogram had been done which showed normal ejection fraction of 60-65% with normal wall motion. Pt was admitted in the hospital and placed him on cardiac sonographer. He denied any more CP. Still has cough and mild MOSER. - Constitutional Vitals: Temp Pulse Resp BP Pulse Ox 97.8 F 83 16 167/87 92 07/19/17 11:14 07/19/17 11:14 07/19/17 11:14 07/19/17 11:14 07/19/17 11:14 General appearance: Present: cooperative, A&O X 3, answers questions appropriately - Head Head exam: Present: atraumatic, normal inspection - Neck Neck exam general surgery: Present: supple - Respiratory Respiratory exam: Present: decreased breath sounds, wheezes (moderate). Absent : rales, respiratory distress, rhonchi - Cardiovascular Cardiovascular exam: Present: RRR, +S1, +S2. Absent: tachycardia - GI/Abdominal GI/Abdominal exam: Present: normal bowel sounds, soft. Absent: rebound, rigid, tenderness - Extremities Exam Extremities exam: Absent: calf tenderness, pedal edema, tenderness - Back Exam Back exam: Absent: CVA tenderness (L), CVA tenderness (R) - Neurological Exam Neurological exam: Present: alert, oriented X3 - Psychiatric Psychiatric exam: Present: normal affect, normal mood Internal Medicine: Result - Labs CBC & Chem 7: 07/19/17 00:29 07/19/17 00:29 Labs: Cardiac Enzymes 07/19/17 Range/Units 05:24 Troponin I < 0.03 (< 0.04) ng/mL - ABG Interpretation ABG results: PT/INR, D-dimer PT 11.1 Seconds (9.4-12.1) 07/19/17 00:29 D-Dimer 592 ng/mLFEU (0-500) H 07/19/17 00:29 Consult Discharge Plan - Plan Referrals: Willem Le DO [Primary Care Provider] -
[2017-07-19] MEDS ORDERED: Saline Nasal Spray 44 ML BOTTLE NS PRN (11:53)
[2017-07-19] MEDS: predniSONE 20 MG TABLET PO SCH ×2 (12:07→16:42)
[2017-07-19] MEDS: *HR* FentaNYL (PF) 100 MCG/2 ML VIAL IVP PRN ×2 (12:11→21:04)
[2017-07-19] MEDS ORDERED: Aminoglycoside Consult 1 EACH MC ONE (12:30)
[2017-07-19] MEDS: Vancomycin 1,250 MG in D5% in Water 250 ML IVPB SCH (16:44)
[2017-07-19] MEDS: Ipratropium/Albuterol Neb 3 ML IH SCH ×3 (17:55→23:00)
[2017-07-20] MEDS ORDERED: Levofloxacin 750 MG/150 ML 750 MG/150 ML BAG IVPB SCH (02:00)
[2017-07-20 02:58] LABS: Basophils # 0.1 K/mcL (0.0-0.2); Basophils % 0.5 %; Hematocrit 37.5 % (37.5-50.1); Hemoglobin 12.7 g/dL (12.9-16.9); Immature Granulocytes % 3.4 % (0-4); Lymphocytes # 0.9 K/mcL (0.6-4.6); Lymphocytes % 7.8 %; Mean Corpuscular HGB Conc 33.9 g/dL (31.6-35.5); Mean Corpuscular Hemoglobin 30.8 pg (28.0-33.3); Mean Platelet Volume 8.8 fL (9.4-12.4); Monocytes # 0.5 K/mcL (0.0-1.3); Monocytes % 4.6 %; Neutrophils # 9.3 K/mcL (1.6-8.9); Platelet Count 366 K/mcL (140-400); Red Blood Count 4.12 M/mcL (4.19-5.50); Red Cell Distribution Width 13.5 % (11.5-14.5); Segmented Neutrophils % 83.7 %
[2017-07-20 03:16] LABS: Hemoglobin A1C 5.5 %
[2017-07-20 03:19] LABS: BUN/Creatinine Ratio 16 (6-26); Blood Urea Nitrogen 14 mg/dL (8-23); Calcium 8.8 mg/dL (8.6-10.3); Carbon Dioxide 22 mEq/L (23-29); Chloride 102 mEq/L (98-107); Chol/HDL Ratio 3.4 (0-4.9); Cholesterol 153 mg/dL (< 200); Glucose 154 mg/dL (70-105); HDL Cholesterol 45 mg/dL (40-59); LDL Cholesterol,Calculated 93 mg/dL (0-99); Osmolality,Calculated 282 (280-300); Potassium 4.1 mEq/L (3.5-5.1); Sodium 134 mEq/L (136-145); Triglycerides 77 mg/dL (< 150); eGFR For African Americans > 60 (> 60); eGFR For Non-African Americans > 60 (> 60)
[2017-07-20] MEDS: Ipratropium/Albuterol Neb 3 ML IH SCH ×3 (03:30→11:31)
[2017-07-20] MEDS ORDERED: Vancomycin 1,250 MG in D5% in Water 250 ML IVPB SCH (05:00)
[2017-07-20] MEDS: Vancomycin 1,250 MG in D5% in Water 250 ML IVPB SCH (05:30)
[2017-07-20] MEDS: *HR* Heparin 5,000 UNIT/ML VIAL SQ SCH (05:30)
[2017-07-20] MEDS ORDERED: Regadenoson 0.4 MG/5 ML SYRINGE IVP ONE (06:32)
[2017-07-20] MEDS: Nicotine 21 MG PATCH.TD24 TD SCH (09:00)
[2017-07-20 11:37] VITALS: BP 145/69
--- NOTE | 2017-07-20 11:52 | Discharge Summary ---
Date of Encounter: 07/20/17 Time of Encounter: 11:30 - Discharge Diagnosis (1) Pneumonia Priority: Primary Status: Acute Qualifiers: Pneumonia type: due to methicillin-resistant Staphylococcus aureus (MRSA) Laterality: right Lung location: lower lobe of lung Qualified Code(s): J15.212 - Pneumonia due to Methicillin resistant Staphylococcus aureus (2) COPD exacerbation Priority: Primary Status: Acute (3) Chest pain Priority: Primary Status: Acute Qualifiers: Chest pain type: precordial pain Qualified Code(s): R07.2 - Precordial pain (4) Acute respiratory failure with hypoxia Priority: Secondary Status: Acute (5) Small cell lung cancer Priority: Secondary Status: Acute Qualifiers: Laterality: left Qualified Code(s): C34.92 - Malignant neoplasm of unspecified part of left bronchus or lung (6) GERD (gastroesophageal reflux disease) Priority: Secondary Status: Acute Qualifiers: Esophagitis presence: without esophagitis Qualified Code(s): K21.9 - Gastro -esophageal reflux disease without esophagitis (7) Tobacco use Priority: Secondary Status: Chronic - Discharge Medications Prescriptions: Aspirin Enteric Coated [Aspirin EC] 81 mg PO DAILY #30 tablet. Levofloxacin [Levaquin] 500 mg PO DAILY #5 tablet Nicotine Patch [Nicoderm] 21 mg TD DAILY #30 patch.td24 predniSONE [PredniSONE] 40 mg PO DAILY #10 tablet Home Medications: Albuterol Sulfate [Albuterol Inhaler] 1 - 2 puff IH QID PRN 07/07/17 [History] Meloxicam 15 mg PO DAILY 07/07/17 [History] Pantoprazole Sodium 40 mg PO DAILY 07/07/17 [History] Docusate [Colace] 200 mg PO BID #120 capsule 07/16/17 [Rx] Gabapentin [Neurontin] 300 mg PO TID #90 capsule 07/16/17 [Rx] Mirtazapine [Remeron] 15 mg PO HS #30 tablet 07/16/17 [Rx] Aspirin Enteric Coated [Aspirin EC] 81 mg PO DAILY #30 tablet. 07/20/17 [Rx] Levofloxacin [Levaquin] 500 mg PO DAILY #5 tablet 07/20/17 [Rx] Nicotine Patch [Nicoderm] 21 mg TD DAILY #30 patch.td24 07/20/17 [Rx] OxyCODONE Immed Rel [Roxicodone 5 MG] 10 mg PO Q4H PRN #90 tablet 07/20/17 [Rx] predniSONE [PredniSONE] 40 mg PO DAILY #10 tablet 07/20/17 [Rx] Allergies/Adverse Reactions: 3 Allergy/AdvReac Type Severity Reaction Status Date / Time No Known Allergies Allergy Verified 07/19/17 10:27 Procedures/tests Complete & Pending: Procedures Performed prior 72 hours Category Date Time Status NM candelaria perf SPECT multi [NM] Routine Exams 07/19/17 11:37 Ordered Date of admission: 07/19/17 05:00 Primary care physician: Willem Le - Patient Status Disposition: Home, Self-Care Condition: Good Overall status at discharge: patient is back to baseline - Discharge Instructions Follow Up With: Willem Le DO [Primary Care Provider] - Fely Ball MD [Partnered Physician] - - Diet and Activity Activity: increase activity as tolerated Diet: low salt diet Hospital course: Mr. Ramirez is a 76 year old male patient who presented to the ER with complaints of chest pain. Pain is located in central part of his chest. He does have some radiation to his left shoulder. He reports that the pain is most severe pain he has had. He denies any palpitations. He does have cough without sputum production. He had recently been diagnosed with small cell lung cancer and was in the process of following up with oncology for treatment options on Thursday. He denies any hemoptysis. No fever or chills. No palpitations. No prior history of coronary artery disease. Patient is a chronic cigarette smoker. He had presented 10 days back with similar complaints but at that time his pain was more in the left upper chest. 2D echocardiogram had been done on 07/08/17 which showed normal ejection fraction of 60-65% with normal wall motion. Pt was admitted in the hospital and placed him on desk monitor. He denied any more CP. His serial trop were negative. His CT of chest showed large left apical lung mass, new mild Rt basilar air space disease. Pt was started on broad spec abx and PO steroids. His symptoms started improving, initially he was hypoxic with SPo2 in 80' required O2 2 lit. Since last night he is off the O2 and breathing comfortably on RA. I did do ambulation pulse oxy by myself, after 6 minutes walk his SPo2 stayed at 92 on RA. So he does not need any home O2. regarding his CP ch pt refused to go for stress test, however he remained CP free since admission. So will d/c him home today with PO steroids + PO Abx Levaquin for 5 more days - Time Spent with Patient Total time spent providing and/or coordinating discharge services: - Constitutional Vitals: Temp Pulse Resp BP Pulse Ox 97.5 F L 101 18 145/69 93 07/20/17 11:35 07/20/17 11:35 07/20/17 11:35 07/20/17 11:35 07/20/17 11:35 General appearance: Present: cooperative, A&O X 3, no acute distress, answers questions appropriately - Head Head exam: Present: atraumatic, normal inspection - Neck Neck exam general surgery: Present: supple - Respiratory Respiratory exam: Present: decreased breath sounds, wheezes (mild). Absent: rales, respiratory distress, rhonchi - Cardiovascular Cardiovascular exam: Present: +S1, +S2. Absent: tachycardia - GI/Abdominal GI/Abdominal exam: Present: normal bowel sounds, soft. Absent: rebound, rigid, tenderness - Extremities Exam Extremities exam: Absent: calf tenderness, pedal edema, tenderness - Back Exam Back exam: Absent: CVA tenderness (L), CVA tenderness (R) - Psychiatric Psychiatric exam: Present: anxious
--- NOTE | 2017-07-21 17:20 | Electrocardiograph Report ---
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
== END 2017-07-20 12:31 | disposition home or self-care (01) | DRG 871 ==
LOC: 3NENU 00:03 → EMEROO 00:03 → 3NENU 03:25
PROVIDERS: ADMIT Internal Medicine Hematology & Oncology; ATTEND Internal Medicine

== ENCOUNTER 2017-08-03 15:33 | Observation (INO) ==
[2017-08-03] MEDS ORDERED: 0.9 % Sodium Chloride 1,000 ML IVC ONE (15:55)
--- NOTE | 2017-08-03 15:57 | Emergency Department Note ---
Disposition Clinical Impression: History of lung cancer Chest pain Qualifiers: Chest pain type: unspecified Qualified Code(s): R07.9 - Chest pain, unspecified Disposition: Admitted As Inpatient Condition: Good Forms: ED Satisfaction Letter General Adult HPI - General Chief complaint: ED Chest Pain Stated complaint: CP Time Seen by Provider: 08/03/17 15:41 Source: EMS Limitations: no limitations Nursing Notes Reviewed: Yes Vital Signs Reviewed: Yes - History of Present Illness HPI Narrative: 76 y/o male with a recent diagnosis of left lung small cell carcinoma. Started on Chemotherapy about 1 week ago. He presents to the ED due to left sided chest pain with dyspnea. It lasts approximately 2 minutes and then goes away. He says nothing makes it better or worse. He denies cardiac hx. Admits to hx of COPD and lung cancer. Currently asymptomatic. Symptoms began approx 24 hours ago. Has had a cough, but he does not think it is much worse than his normal cough. No fever. No abd pain or N/V. Pain Scale: 0 Consistency: now resolved Improves with: nothing Worsens with: nothing Associated symptoms: Reports: denies other symptoms Treatments Prior to Arrival: none - Related Data Home Medications Medication Instructions Recorded Confirmed Albuterol Sulfate [Albuterol 1 - 2 puff IH QID PRN 07/07/17 07/31/17 Inhaler] Meloxicam 15 mg PO DAILY 07/07/17 07/31/17 Pantoprazole Sodium 40 mg PO DAILY 07/07/17 07/31/17 Previous Rx's Medication Instructions Recorded Docusate [Colace] 200 mg PO BID #120 capsule 07/16/17 Gabapentin [Neurontin] 300 mg PO TID #90 capsule 07/16/17 Mirtazapine [Remeron] 15 mg PO HS #30 tablet 07/16/17 Aspirin Enteric Coated [Aspirin EC] 81 mg PO DAILY #30 tablet. 07/20/17 OxyCODONE Immed Rel [Roxicodone 5 10 mg PO Q4H PRN #90 tablet 07/20/17 MG] predniSONE [PredniSONE] 40 mg PO DAILY #10 tablet 07/20/17 Promethazine [Phenergan] 25 mg PO Q6HR PRN #30 tablet 07/22/17 Allergies Allergy/AdvReac Type Severity Reaction Status Date / Time No Known Allergies Allergy Verified 08/03/17 15:34 All systems ED: reviewed and negative except as stated. Constitutional: Denies: fever ENT ED: Denies: throat pain Cardiovascular: Reports: chest pain Respiratory: Reports: cough, dyspnea Gastrointestinal: Denies: abdominal pain Musculoskeletal: Denies: back pain Integumentary: Denies: rash Past Medical History - Past Medical History Medical history: Reports: cancer, COPD Psychiatric history: Reports: no psych history - Social History Smoking Status: Current every day smoker Smokeless Tobacco Status: No Alcohol use: Reports: none Drug use: Reports: none Physical Exam - General Limitations: no limitations General appearance: alert, in no apparent distress - Head Head exam: atraumatic - Eye Eye exam: Present: normal appearance, PERRL - ENT ENT exam: normal exam, normal oropharynx - Neck Neck exam: Present: normal inspection - Chest Chest inspection: Present: normal inspection - Respiratory Respiratory exam: Present: normal lung sounds bilaterally. Absent: respiratory distress - Cardiovascular Cardiovascular exam: Present: regular rate, normal rhythm - Abdominal Exam Abdominal exam: Present: soft, Non-Tender - Extremities Exam Extremities exam: Present: normal inspection - Neurological Exam Neurological exam: Present: alert, oriented X3 - Skin Skin exam: Present: warm, dry Course Course Narrative: CTA shows improvement in lung mass. No PE. EKG does not show any acute changes. In addition, troponin is negative and labwork stable. Will admit for CP rule out. Currently asymptomatic. Accepted for admission by Dr Lacy Vital Signs Temperature 98.0 F 08/03/17 15:35 Pulse Rate 68 08/03/17 15:35 Respiratory Rate 15 08/03/17 15:35 Blood Pressure 148/82 08/03/17 15:35 O2 Sat by Pulse Oximetry 97 08/03/17 15:35 Temperature 98.0 F 08/03/17 15:35 Pulse Rate 86 08/03/17 17:51 Respiratory Rate 18 08/03/17 16:04 Blood Pressure 152/79 08/03/17 17:51 O2 Sat by Pulse Oximetry 96 08/03/17 17:51 Oxygen Delivery Oxygen Delivery Room Air Medical Decision Making - Medical Records Medical records reviewed: Yes I reviewed the patient's medical records. - Lab Data Lab results reviewed: Yes I reviewed the patient's lab results. Result diagrams: 08/03/17 15:58 08/03/17 15:58 Lab Results 08/03/17 08/03/17 08/03/17 Range/Units 15:58 15:58 15:58 WBC 8.6 (4.3-11.1) K/mcL RBC 3.99 L (4.19-5.50) M/mcL Hgb 12.5 L (12.9-16.9) g/dL Hct 37.5 (37.5-50.1) % MCV 94.0 (83.0-100.0) fL MCH 31.3 (28.0-33.3) pg MCHC 33.3 (31.6-35.5) g/dL RDW 14.4 (11.5-14.5) % Plt Count 212 (140-400) K/mcL MPV 9.1 L (9.4-12.4) fL Seg Neutrophils % 56.0 % Band Neutrophils % 4.0 (0-4) % Lymphocytes % 28.0 % Monocytes % 8.0 % Eosinophils % 2.0 % Basophils % 2.0 % Neutrophils # 5.2 (1.6-8.9) K/mcL Lymphocytes # 2.4 (0.6-4.6) K/mcL Monocytes # 0.7 (0.0-1.3) K/mcL Eosinophils # 0.2 (0.0-0.6) K/mcL Basophils # 0.2 (0.0-0.2) K/mcL Platelet Estimate Normal (Normal) Immature Plt Fraction 2.1 (1.1-6.1) % PT 11.3 (9.4-12.1) Seconds INR 1.1 APTT 31.5 (26.0-36.0) Seconds Sodium 141 (136-145) mEq/L Potassium 3.9 (3.5-5.1) mEq/L Chloride 106 (98-107) mEq/L Carbon Dioxide 27 (23-29) mEq/L BUN 17 (8-23) mg/dL Creatinine 1.01 (0.70-1.30) mg/dL Est GFR ( Amer) > 60 (> 60) Est GFR (Non-Af Amer) > 60 (> 60) BUN/Creatinine Ratio 17 (6-26) Glucose 114 H (70-105) mg/dL Calculated Osmolality 294 (280-300) Calcium 9.4 (8.6-10.3) mg/dL Troponin I (< 0.04) ng/mL 08/03/17 Range/Units 15:58 WBC (4.3-11.1) K/mcL RBC (4.19-5.50) M/mcL Hgb (12.9-16.9) g/dL Hct (37.5-50.1) % MCV (83.0-100.0) fL MCH (28.0-33.3) pg MCHC (31.6-35.5) g/dL RDW (11.5-14.5) % Plt Count (140-400) K/mcL MPV (9.4-12.4) fL Seg Neutrophils % % Band Neutrophils % (0-4) % Lymphocytes % % Monocytes % % Eosinophils % % Basophils % % Neutrophils # (1.6-8.9) K/mcL Lymphocytes # (0.6-4.6) K/mcL Monocytes # (0.0-1.3) K/mcL Eosinophils # (0.0-0.6) K/mcL Basophils # (0.0-0.2) K/mcL Platelet Estimate (Normal) Immature Plt Fraction (1.1-6.1) % PT (9.4-12.1) Seconds INR APTT (26.0-36.0) Seconds Sodium (136-145) mEq/L Potassium (3.5-5.1) mEq/L Chloride (98-107) mEq/L Carbon Dioxide (23-29) mEq/L BUN (8-23) mg/dL Creatinine (0.70-1.30) mg/dL Est GFR ( Amer) (> 60) Est GFR (Non-Af Amer) (> 60) BUN/Creatinine Ratio (6-26) Glucose (70-105) mg/dL Calculated Osmolality (280-300) Calcium (8.6-10.3) mg/dL Troponin I < 0.03 (< 0.04) ng/mL - Radiology Data Radiology results reviewed: Yes I reviewed the patient's radiology results. - EKG Data EKG #1 EKG attestation: Yes I reviewed and interpreted this EKG. EKG shows normal: sinus rhythm Rate: normal Rhythm: NSR Interpretation: other (Nonspecific changes, no ST elevation)
[2017-08-03 16:10] LABS: INR 1.1; Prothrombin Time 11.3 Seconds (9.4-12.1)
[2017-08-03 16:13] LABS: Activated Partial Thrombo Time 31.5 Seconds (26.0-36.0)
--- NOTE | 2017-08-03 16:18 | Emergency Department Note ---
START Narrative - START START: I examined this patient and my medical decision-making was reviewed with the Resident Physician. I agree with the documented findings, disposition and treatment plan as described except to the extent set forth below. 76 yo M here for chest pressure/cp and sob. known lung CA and receiving chemo here. pt denies hx of CAD. will workup from acs standpoint and do cta chest vss at this time he states most of his pain is with coughing. no fevers.
[2017-08-03 16:21] LABS: BUN/Creatinine Ratio 17 (6-26); Blood Urea Nitrogen 17 mg/dL (8-23); Calcium 9.4 mg/dL (8.6-10.3); Carbon Dioxide 27 mEq/L (23-29); Chloride 106 mEq/L (98-107); Glucose 114 mg/dL (70-105); Osmolality,Calculated 294 (280-300); Potassium 3.9 mEq/L (3.5-5.1); Sodium 141 mEq/L (136-145); eGFR For African Americans > 60 (> 60); eGFR For Non-African Americans > 60 (> 60)
[2017-08-03 16:41] LABS: Hematocrit 37.5 % (37.5-50.1); Hemoglobin 12.5 g/dL (12.9-16.9); Immature Platelets 2.1 % (1.1-6.1); Mean Corpuscular HGB Conc 33.3 g/dL (31.6-35.5); Mean Corpuscular Hemoglobin 31.3 pg (28.0-33.3); Mean Platelet Volume 9.1 fL (9.4-12.4); Platelet Count 212 K/mcL (140-400); Red Blood Count 3.99 M/mcL (4.19-5.50); Red Cell Distribution Width 14.4 % (11.5-14.5)
[2017-08-03 17:23] LABS: Basophils # 0.2 K/mcL (0.0-0.2); Eosinophils # 0.2 K/mcL (0.0-0.6); Lymphocytes # 2.4 K/mcL (0.6-4.6); Monocytes # 0.7 K/mcL (0.0-1.3); Neutrophils # 5.2 K/mcL (1.6-8.9)
[2017-08-03 17:24] LABS: Platelet Estimate Normal (Normal)
[2017-08-03] MEDS ORDERED: Aspirin 325 MG TABLET PO ONE (18:06)
[2017-08-03] MEDS ORDERED: Acetaminophen 325 MG TABLET PO PRN (20:46)
[2017-08-03] MEDS ORDERED: Naloxone 0.4 MG/ML INJ IVP PRN (20:46)
[2017-08-03] MEDS ORDERED: *HR* Promethazine 25 MG/ML VIAL IVP PRN (20:46)
[2017-08-03] MEDS ORDERED: Ondansetron 4 MG/2 ML VIAL IVP PRN (20:46)
[2017-08-03] MEDS: Nitroglycerin 0.4 MG TAB.SUBL SL PRN ×2 (21:34→21:46)
[2017-08-03] MEDS: Mirtazapine 15 MG TABLET PO SCH (21:57)
[2017-08-03] MEDS: Aspirin Enteric Coated 81 MG Tablet PO SCH (21:57)
[2017-08-03] MEDS: Gabapentin 300 MG CAPSULE PO SCH (21:57)
[2017-08-03] MEDS: *HR* FentaNYL (PF) 100 MCG/2 ML VIAL IVP PRN (23:33)
[2017-08-04] MEDS: *HR* HYDROcodone/Acet 5/325 mg TABLET PO PRN ×3 (00:38→16:51)
--- NOTE | 2017-08-04 01:09 | Internal Med History&Physical ---
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 serial troponin so far negative troponin EKG reviewed by myself - NSR, NO acute ischemic changes Cont on ASA, Nitro PRN for pain Will check FLP in AM Will get stress test in AM since pt is high risk for ACS Qualifiers: Chest pain type: unspecified Qualified Code(s): R07.9 - Chest pain, unspecified (2) Left arm pain Current visit: No Status: Acute It does look like left arm radiculopathy will get X ray Neck Cont supportive care (3) GERD (gastroesophageal reflux disease) Current visit: No Status: Acute on PPI Qualifiers: Esophagitis presence: without esophagitis Qualified Code(s): K21.9 - Gastro -esophageal reflux disease without esophagitis (4) Small cell lung cancer Current visit: No Status: Acute reviewed CT of Chest -- noticed decreased in mass size on active chemo now f/u with [facility] as an out pt Qualifiers: Laterality: left Qualified Code(s): C34.92 - Malignant neoplasm of unspecified part of left bronchus or lung (5) Tobacco use Current visit: No Status: Chronic counseled to quit will place him on nicotine patch Internal Medicine - H&P: HPI Chief complaint: Chest pain Admitted From: Emergency Dept Plans for Post Hospital Care: Home History of present illness: Mr. Ramirez is a 76 year old male kwown HTN, chronic tobacco deodencem COPD, not on home O2 , newly diagnosed left upper lobe small cell carcinoma currently on Carboplatin with Etoposide initiated 07/22/17 by Heme Onc now he presented to ER with left chest wall pain raditing to his Left arm. Pt stated his pain is intermittent 8/10 in severity, sharp pain, radiating to his arm, neck and back also. Pt was admitted here 2 weeks ago with chest pain, but he did not stay in the hospital for stress test at that time. He denied any CP now.. However he does c/o neck pain, radiating to his arm and fore arm. Past Med Surg Social Fam HX - Past Medical History Medical history: cancer, COPD Psychiatric history: no psych history - Social History Smoking Status: Current every day smoker Smokeless Tobacco Status: No Alcohol use: none Drug use: none - Family History Mother Living Status: Hx Family Respiratory Disorders: Yes (asthma) Father Living Status: Hx Family Cardiac Disorders: Yes (mother) Hx Family Respiratory Disorders: Yes (mother asthma) Hx Family Cancer: Yes (father) Hx Family GI Disorders: No Hx Family Endocrine Disorder: No Hx Family Neuromuscular Disorders: No Hx Family Neurologic Disorders: No Hx Family HEENT Disorders: No Hx Family Autoimmune Disorders: No Internal Medicine - H&P: Meds Albuterol Sulfate [Albuterol Inhaler] 1 - 2 puff IH QID PRN 07/07/17 [History] Meloxicam 15 mg PO DAILY 07/07/17 [History] Pantoprazole Sodium 40 mg PO DAILY 07/07/17 [History] Docusate [Colace] 200 mg PO BID #120 capsule 07/16/17 [Rx] Gabapentin [Neurontin] 300 mg PO TID #90 capsule 07/16/17 [Rx] Mirtazapine [Remeron] 15 mg PO HS #30 tablet 07/16/17 [Rx] Aspirin Enteric Coated [Aspirin EC] 81 mg PO DAILY #30 tablet. 07/20/17 [Rx] OxyCODONE Immed Rel [Roxicodone 5 MG] 10 mg PO Q4H PRN #90 tablet 07/20/17 [Rx] Promethazine [Phenergan] 25 mg PO Q6HR PRN #30 tablet 07/22/17 [Rx] 3 Allergy/AdvReac Type Severity Reaction Status Date / Time No Known Allergies Allergy Verified 08/03/17 15:34 All Systems PM: A 10-system review of systems was performed and is negative for pertinent findings except as documented above in the HPI. Review of systems: All the systems are reviewed everything is benign except the systems and symptoms I mentioned in the history of present illness - Constitutional Vitals: Temp Pulse Resp BP Pulse Ox 98.6 F 62 16 104/64 93 08/03/17 23:10 08/03/17 23:10 08/03/17 23:10 08/03/17 23:10 08/03/17 23:10 General appearance: Present: cooperative, A&O X 3, no acute distress, answers questions appropriately - Head Head exam: Present: atraumatic, normal inspection - Neck Neck exam general surgery: Present: supple - Respiratory Respiratory exam: Present: decreased breath sounds, wheezes (mild). Absent: rales, respiratory distress, rhonchi - Cardiovascular Cardiovascular exam: Present: RRR, +S1, +S2. Absent: tachycardia - GI/Abdominal GI/Abdominal exam: Present: normal bowel sounds, soft. Absent: rebound, rigid, tenderness - Extremities Exam Extremities exam: Present: tenderness (Left arm, fore arm and neck region). Absent: calf tenderness, pedal edema - Back Exam Back exam: Absent: CVA tenderness (L), CVA tenderness (R) - Neurological Exam Neurological exam: Present: alert, oriented X3 - Psychiatric Psychiatric exam: Present: normal affect, normal mood Internal Med - H&P Results - Labs CBC & Chem 7: 08/03/17 15:58 08/03/17 15:58 Labs: Cardiac Enzymes 08/03/17 Range/Units 21:14 Troponin I < 0.03 (< 0.04) ng/mL
[2017-08-04 05:31] LABS: Chol/HDL Ratio 4.1 (0-4.9)
[2017-08-04] MEDS ORDERED: Regadenoson 0.4 MG/5 ML SYRINGE IVP ONE (06:28)
[2017-08-04] MEDS: Gabapentin 300 MG CAPSULE PO SCH ×3 (09:14→21:50)
[2017-08-04] MEDS: Aspirin Enteric Coated 81 MG Tablet PO SCH (09:14)
[2017-08-04] MEDS: Nicotine 21 MG PATCH.TD24 TD SCH (09:15)
[2017-08-04] MEDS: *HR* FentaNYL (PF) 100 MCG/2 ML VIAL IVP PRN ×2 (12:03→19:36)
--- NOTE | 2017-08-04 13:22 | Event Note ---
Date of Encounter: 08/04/17 Time of Encounter: 13:21 Hx of HTN Chronic tobacco dependence COPD not on home O2 recently DX with Left upper lobe small cell carcinoma curently on Carboplatin with Etoposide intiated 07/22/17 per heme/Onc He presented to the ED last night with L chest wall pain radiating to L arm pain relieved with nitro, He was to undergo a cardaic stress this am however he did drink coffee and eat chocolate, He will be made NPO after midnight for possible cardiac stress test in am. Presently he describes having occasional Intermittent squeezing CP. He complains of left arm pain now requesting pain medication.
[2017-08-04] MEDS: Nitroglycerin 0.4 MG TAB.SUBL SL PRN (14:28)
--- NOTE | 2017-08-04 18:43 | Electrocardiograph Report ---
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
[2017-08-04] MEDS ORDERED: Saline Nasal Spray 44 ML BOTTLE NS PRN (19:32)
[2017-08-04] MEDS: Mirtazapine 15 MG TABLET PO SCH (21:50)
[2017-08-05] MEDS ORDERED: Regadenoson 0.4 MG/5 ML SYRINGE IVP ONE (06:05)
[2017-08-05] MEDS: Gabapentin 300 MG CAPSULE PO SCH ×3 (08:51→21:33)
[2017-08-05] MEDS: *HR* HYDROcodone/Acet 5/325 mg TABLET PO PRN ×2 (08:51→17:44)
--- NOTE | 2017-08-05 09:51 | Internal Med Progress Note ---
Date of Encounter: 08/05/17 Time of Encounter: 09:50 - Assessment and plan (1) Chest pain Current Visit: Yes Status: Acute Assessment and plan: 1 serial troponins have been negative EKG with no acute ischemic changes Patient went underwent cardiac stress test awaiting results Continue aspirin nitroglycerin when necessary for pain Qualifiers: Chest pain type: unspecified Qualified Code(s): R07.9 - Chest pain, unspecified (2) Left arm pain Current Visit: No Status: Acute Assessment and plan: 1 appears to be left arm radiculopathy Continue supportive care (3) Small cell lung cancer Current Visit: No Status: Acute Assessment and plan: Current CT of chest-noticed decrease in mass size On active chemotherapy now Follow-up with heme/onc as outpatient Qualifiers: Laterality: left Qualified Code(s): C34.92 - Malignant neoplasm of unspecified part of left bronchus or lung (4) Tobacco use Current Visit: No Status: Chronic Assessment and plan: 1 encouraged patient to stop smoking Nicotine patch (5) DVT prophylaxis Current Visit: No Status: Acute Assessment and plan: Patient is ambulatory - Subjective Interval history: went for pharm cardiac stress test Tolerated well, complains of arm pain . - Constitutional Vitals: Temp Pulse Resp BP Pulse Ox 98.1 F 67 18 158/83 94 08/05/17 07:03 08/05/17 07:03 08/05/17 07:03 08/05/17 07:03 08/05/17 07:03 General appearance: Present: cooperative, A&O X 3, no acute distress, answers questions appropriately - Head Head exam: Present: atraumatic, normocephalic - Eye Eye exam: Present: PERRL, conjuntiva pink, sclera anicteric Pupils: Present: PERRL - Neck Neck exam general surgery: Present: supple, trachea midline. Absent: lymphadenopathy - Respiratory Respiratory exam: Present: rales. Absent: accessory muscle use, rhonchi, wheezes - Cardiovascular Cardiovascular exam: Present: RRR, +S1, +S2. Absent: diastolic murmur, gallop, rubs, systolic murmur - GI/Abdominal GI/Abdominal exam: Present: normal bowel sounds, soft, no peritoneal signs. Absent: distended, tenderness - Extremities Exam Extremities exam: Present: warm, radial pulses palpable and symmetrical. Absent : calf tenderness, cyanotic, pedal edema - Neurological Exam Neurological exam: Present: CN II-XII intact, oriented X3, no focal deficits. Absent: pronater drift, facial droop, speech deficit - Skin Skin exam: Present: dry, intact Internal Medicine: Result - Labs CBC & Chem 7: 08/03/17 15:58 08/03/17 15:58 - ABG Interpretation ABG results: PT/INR, D-dimer PT 11.3 Seconds (9.4-12.1) 08/03/17 15:58 Consult Discharge Plan - Plan Referrals: Willem Le DO [Primary Care Provider] -
[2017-08-05] MEDS ORDERED: traMADol 50 MG TABLET PO PRN (14:10)
[2017-08-05] MEDS ORDERED: Ketorolac 15 MG/ML VIAL IVP PRN (14:12)
[2017-08-05] MEDS: Nicotine 21 MG PATCH.TD24 TD SCH (14:44)
[2017-08-05] MEDS: Aspirin Enteric Coated 81 MG Tablet PO SCH (14:45)
--- NOTE | 2017-08-05 15:07 | Discharge Summary ---
Date of Encounter: 08/06/17 Time of Encounter: 07:25 - Discharge Diagnosis (1) Chest pain Priority: Primary Status: Acute Comments: 1 pharm cardiac stress: Pharmacologic stress ECG is negative for ischemia at level of heart rate achieved. Gated EF = 68%. Medium sized, mild intensity, fixed inferior and apex defect. Wall motion is normal. These findings are consistent with artifact. Perfusion imaging was negative for ischemia or infarct. Follow up with PCP Suspect rt malignancy Qualifiers: Chest pain type: unspecified Qualified Code(s): R07.9 - Chest pain, unspecified (2) Left arm pain Priority: Secondary Status: Acute Comments: Xray appears to show bone spurs Continue supportive care (3) Small cell lung cancer Priority: Secondary Status: Acute Comments: Current CT of chest-noticed decrease in mass size On active chemotherapy now Follow-up with heme/onc as outpatient Qualifiers: Laterality: left Qualified Code(s): C34.92 - Malignant neoplasm of unspecified part of left bronchus or lung (4) Tobacco use Priority: Secondary Status: Chronic Comments: encourage to stop smoking - Discharge Medications Home Medications: Albuterol Sulfate [Albuterol Inhaler] 1 - 2 puff IH QID PRN 07/07/17 [History] Meloxicam 15 mg PO DAILY 07/07/17 [History] Pantoprazole Sodium 40 mg PO DAILY 07/07/17 [History] Docusate [Colace] 200 mg PO BID #120 capsule 07/16/17 [Rx] Gabapentin [Neurontin] 300 mg PO TID #90 capsule 07/16/17 [Rx] Mirtazapine [Remeron] 15 mg PO HS #30 tablet 07/16/17 [Rx] Aspirin Enteric Coated [Aspirin EC] 81 mg PO DAILY #30 tablet. 07/20/17 [Rx] OxyCODONE Immed Rel [Roxicodone 5 MG] 10 mg PO Q4H PRN #90 tablet 07/20/17 [Rx] Promethazine [Phenergan] 25 mg PO Q6HR PRN #30 tablet 07/22/17 [Rx] Allergies/Adverse Reactions: 3 Allergy/AdvReac Type Severity Reaction Status Date / Time No Known Allergies Allergy Verified 08/03/17 15:34 Procedures/tests Complete & Pending: Procedures Performed prior 72 hours Category Date Time Status NM candelaria perf SPECT multi [NM] Routine Exams 08/05/17 06:40 Taken ECG 12 lead ECG [ECG] Stat Y 08/03/17 20:46 Ordered SP pharm nuclear stress Routine Y 08/05/17 07:15 Completed Date of admission: 08/03/17 18:26 Primary care physician: Willem Le Discharging clinician: Neva Garcia Anticipated date of discharge: 08/06/17 - Patient Status Disposition: Home, Self-Care Condition: Good Overall status at discharge: patient is progressing back to baseline - Discharge Instructions Instructions: Chest Pain (DC) Follow Up With: Willem Le DO [Primary Care Provider] - - Diet and Activity Activity: increase activity as tolerated Diet: low fat, low cholesterol Hospital course: Mr. Ramirez is a 76 year old male patient has a history of hypertension chronic tobacco dependence COPD on home O2 newly diagnosed left upper lobe small cell carcinoma currently on Carboplatin with Etoposide initiated 07/22/17 by heme/onc who presented to the year with left chest wall pain radiating to his left arm pain was intermittent 810 he was given nitroglycerin which did relieve his pain. Troponins were negative [address]-T wave and anomalies CTA was negative for any PE he was scheduled for a stress test however the patient did consume coffee prior to the testing with delayed until today. Stress was completed - Time Spent with Patient Total time spent providing and/or coordinating discharge services: - Constitutional Vitals: Temp Pulse Resp BP Pulse Ox 98.7 F 98 18 137/88 93 08/05/17 11:50 08/05/17 11:50 08/05/17 11:50 08/05/17 11:50 08/05/17 11:50 General appearance: Present: cooperative, A&O X 3, no acute distress, answers questions appropriately - Head Head exam: Present: atraumatic, normocephalic - Eye Eye exam: Present: PERRL, conjuntiva pink, sclera anicteric Pupils: Present: PERRL - Neck Neck exam general surgery: Present: supple, trachea midline. Absent: lymphadenopathy - Respiratory Respiratory exam: Present: CTAB. Absent: accessory muscle use, rales, rhonchi, wheezes - Cardiovascular Cardiovascular exam: Present: RRR, +S1, +S2. Absent: diastolic murmur, gallop, rubs, systolic murmur - GI/Abdominal GI/Abdominal exam: Present: normal bowel sounds, soft, no peritoneal signs. Absent: distended, tenderness - Extremities Exam Extremities exam: Present: warm, radial pulses palpable and symmetrical. Absent : calf tenderness, cyanotic, pedal edema - Neurological Exam Neurological exam: Present: CN II-XII intact, oriented X3, no focal deficits. Absent: pronater drift, facial droop, speech deficit - Skin Skin exam: Present: dry, intact
[2017-08-05] MEDS ORDERED: *HR* OxyCODONE Immed Rel 5 MG TABLET PO PRN (17:51)
[2017-08-05] MEDS: Mirtazapine 15 MG TABLET PO SCH (21:33)
[2017-08-06 06:47] VITALS: BP 133/87
[2017-08-06] MEDS: Aspirin Enteric Coated 81 MG Tablet PO SCH (09:33)
[2017-08-06] MEDS: Gabapentin 300 MG CAPSULE PO SCH (09:33)
[2017-08-06] MEDS: Nicotine 21 MG PATCH.TD24 TD SCH (09:38)
== END 2017-08-06 09:50 | disposition home or self-care (01) ==
LOC: EMEROO 15:33 → 3BNU 15:33
PROVIDERS: ADMIT Family Medicine; ATTEND Registered Nurse

== ENCOUNTER 2018-11-08 20:14 | Inpatient (IN) ==
[2018-11-08] MEDS ORDERED: Ipratropium/Albuterol Neb 3 ML IH ONE (20:17)
[2018-11-08] MEDS ORDERED: methylPREDNISolone 125 MG/2 ML VIAL IVP ONE (20:17)
[2018-11-08] MEDS ORDERED: Furosemide 40 MG/4 ML VIAL IVP ONE (20:17)
--- NOTE | 2018-11-08 20:20 | Emergency Department Note ---
Disposition Clinical Impression: Acute kidney injury, NSTEMI (non-ST elevated myocardial infarction), Hyperkalemia Pneumonia Qualifiers: Pneumonia type: due to unspecified organism Laterality: unspecified laterality Lung location: unspecified part of lung Qualified Code(s): J18.9 - Pneumonia, unspecified organism Acute respiratory failure Qualifiers: Respiratory failure complication: unspecified whether with hypoxia or hypercapnia Qualified Code(s): J96.00 - Acute respiratory failure, unspecified whether with hypoxia or hypercapnia Sepsis Qualifiers: Sepsis type: sepsis due to unspecified organism Qualified Code(s): A41.9 - Sepsis, unspecified organism Disposition: Admitted As Inpatient Condition: Fair Referrals: Willem Le DO [Primary Care Provider] - Time of Disposition: 21:42 General Adult HPI - General Stated complaint: SOB Time Seen by Provider: 11/08/18 20:17 - Related Data Home Medications Medication Instructions Recorded Confirmed Pantoprazole Sodium 40 mg PO DAILY 07/07/17 10/27/18 Albuterol Sulfate [Proair Hfa] 1 puff IH QID PRN 04/29/18 10/27/18 Previous Rx's Medication Instructions Recorded Docusate [Colace] 200 mg PO BID #120 capsule 07/16/17 Aspirin Enteric Coated [Aspirin EC] 81 mg PO DAILY #30 tablet. 07/20/17 Promethazine [Phenergan] 25 mg PO Q6HR PRN #30 tablet 07/22/17 Nitroglycerin [Nitrostat] 0.4 mg SL Q1H PRN #30 tab.subl 08/14/17 Magic Mouthwash [Magic Mouthwash 10 ml PO QID PRN #240 ml 10/14/17 BLM] Mirtazapine [Remeron] 15 mg PO HS #30 tablet 01/19/18 Metoprolol [Lopressor] 25 mg PO BID #60 tablet 01/27/18 Cephalexin [Keflex] 500 mg PO Q6HR #28 capsule 10/20/18 OxyCODONE Immed Rel [Roxicodone 5 10 mg PO Q4H PRN 30 Days #90 tablet 10/27/18 MG] Allergies Allergy/AdvReac Type Severity Reaction Status Date / Time No Known Allergies Allergy Verified 10/27/18 09:25 Past Medical History - Past Medical History Medical history: Reports: COPD Psychiatric history: Reports: no psych history - Social History Smoking Status: Current every day smoker Smokeless Tobacco Status: No Alcohol use: Reports: none Drug use: Reports: none Course Vital Signs Respiratory Rate 44 11/08/18 20:25 O2 Sat by Pulse Oximetry 91 11/08/18 20:25 Temperature 98.5 F 11/08/18 20:30 Pulse Rate 90 11/08/18 20:30 Respiratory Rate 40 11/08/18 20:31 Blood Pressure 88/61 11/08/18 20:30 O2 Sat by Pulse Oximetry 99 11/08/18 20:31 Oxygen Delivery Oxygen Delivery Bipap Medical Decision Making - Lab Data Result diagrams: 11/08/18 20:43 11/08/18 20:43 Lab Results 11/08/18 11/08/18 11/08/18 Range/Units 20:43 20:43 20:43 WBC 25.1 H (4.3-11.1) K/mcL RBC 4.37 (4.19-5.50) M/mcL Hgb 13.1 (12.9-16.9) g/dL Hct 39.5 (37.5-50.1) % MCV 90.4 (83.0-100.0) fL MCH 30.0 (28.0-33.3) pg MCHC 33.2 (31.6-35.5) g/dL RDW 14.7 H (11.5-14.5) % Plt Count 194 (140-400) K/mcL MPV 9.3 L (9.4-12.4) fL Immature Gran % 7.5 H (0-4) % Seg Neutrophils % 87.9 % Lymphocytes % 2.1 % Monocytes % 2.4 % Eosinophils % 0.0 % Basophils % 0.1 % Neutrophils # 22.1 H (1.6-8.9) K/mcL Lymphocytes # 0.5 L (0.6-4.6) K/mcL Monocytes # 0.6 (0.0-1.3) K/mcL Eosinophils # 0.0 (0.0-0.6) K/mcL Basophils # 0.0 (0.0-0.2) K/mcL Platelet Estimate Normal (Normal) PT (9.4-12.1) Seconds INR Sample Site ABG pH (7.32-7.45) pH Units ABG pCO2 (35-45) mmHg ABG pO2 (85-104) mmHg ABG HCO3 (21-27) mEq/L ABG Total CO2 (20-26) mEq/L ABG O2 Saturation (95-98) % ABG Base Excess (-2 to 3) mEq/L O2 Delivery Device Inspired O2 (1-15=lpm [id number]=%) Sodium 128 L (136-145) mEq/L Potassium 6.0 H (3.5-5.1) mEq/L Chloride 90 L (98-107) mEq/L Carbon Dioxide 22 L (23-29) mEq/L BUN 69 H (8-23) mg/dL Creatinine 4.38 H (0.70-1.30) mg/dL Est GFR ( Amer) 16 L (> 60) Est GFR (Non-Af Amer) 13 L (> 60) BUN/Creatinine Ratio 16 (6-26) Glucose 64 L (70-105) mg/dL Calculated Osmolality 284 (280-300) Lactic Acid 2.0 (0.5-2.2) mmol/L Calcium 8.6 (8.6-10.3) mg/dL Total Bilirubin 0.7 (0.3-1.0) mg/dL Direct Bilirubin 0.4 H (0.0-0.2) mg/dL Indirect Bilirubin 0.3 (0.0-1.2) mg/dL AST 85 H (13-39) Units/L ALT 45 (7-52) Units/L Alkaline Phosphatase 139 H (34-104) Units/L Troponin I 0.19 H* (< 0.04) ng/mL B-Natriuretic Peptide (Less than 100) pg/mL Serum Total Protein 7.3 (6.4-8.9) g/dL Albumin 3.4 L (3.5-5.7) g/dL Globulin 3.9 H (2.4-3.5) g/dL Albumin/Globulin Ratio 0.9 L (1.1-2.2) 11/08/18 11/08/18 11/08/18 Range/Units 20:43 20:43 21:51 WBC (4.3-11.1) K/mcL RBC (4.19-5.50) M/mcL Hgb (12.9-16.9) g/dL Hct (37.5-50.1) % MCV (83.0-100.0) fL MCH (28.0-33.3) pg MCHC (31.6-35.5) g/dL RDW (11.5-14.5) % Plt Count (140-400) K/mcL MPV (9.4-12.4) fL Immature Gran % (0-4) % Seg Neutrophils % % Lymphocytes % % Monocytes % % Eosinophils % % Basophils % % Neutrophils # (1.6-8.9) K/mcL Lymphocytes # (0.6-4.6) K/mcL Monocytes # (0.0-1.3) K/mcL Eosinophils # (0.0-0.6) K/mcL Basophils # (0.0-0.2) K/mcL Platelet Estimate (Normal) PT 13.1 H (9.4-12.1) Seconds INR 1.2 Sample Site R Radial ABG pH 7.43 (7.32-7.45) pH Units ABG pCO2 24 L (35-45) mmHg ABG pO2 61 L (85-104) mmHg ABG HCO3 16 L (21-27) mEq/L ABG Total CO2 16 L (20-26) mEq/L ABG O2 Saturation 93 L (95-98) % ABG Base Excess -7 L (-2 to 3) mEq/L O2 Delivery Device Cannula Inspired O2 28.0 (1-15=lpm [id number]=%) Sodium (136-145) mEq/L Potassium (3.5-5.1) mEq/L Chloride (98-107) mEq/L Carbon Dioxide (23-29) mEq/L BUN (8-23) mg/dL Creatinine (0.70-1.30) mg/dL Est GFR ( Amer) (> 60) Est GFR (Non-Af Amer) (> 60) BUN/Creatinine Ratio (6-26) Glucose (70-105) mg/dL Calculated Osmolality (280-300) Lactic Acid (0.5-2.2) mmol/L Calcium (8.6-10.3) mg/dL Total Bilirubin (0.3-1.0) mg/dL Direct Bilirubin (0.0-0.2) mg/dL Indirect Bilirubin (0.0-1.2) mg/dL AST (13-39) Units/L ALT (7-52) Units/L Alkaline Phosphatase (34-104) Units/L Troponin I (< 0.04) ng/mL B-Natriuretic Peptide 316 H (Less than 100) pg/mL Serum Total Protein (6.4-8.9) g/dL Albumin (3.5-5.7) g/dL Globulin (2.4-3.5) g/dL Albumin/Globulin Ratio (1.1-2.2) Critical Care Time Critical Care Time: Yes Total Critical Care Time: 60 Attestation: The high probability of a clinically significant, sudden or life threatening de terioration of the [] system(s) required my full and direct attention, intervention and personal management. The aggregate critical care time was [] minutes. This time is in addition to time spent performing reported procedures but includes the following: [] Data Review and interpretation [] Patient assessment and monitoring of vital signs [] Documentation [] Medication orders and management Attestation Statement - Attestation Attestation: I reviewed the residents documentation and agree with the residents assessment and plan of care. I have personally had face to face time with the patient. (Brief History, Brief Exam, and MDM) I personally supervised and was present for the curry/critical portions of the following procedures completed by the resident: (add procedures performed here). [id number] time provided I attest to supervising the resident physician interpretation of the ECG. Patient presents by EMS from home with dyspnea. He has a known history of lung cancer. He is acutely short of breath upon arrival with accessory muscle use and increased work of breathing. BiPAP required
--- NOTE | 2018-11-08 20:30 | Emergency Department Note ---
Disposition Clinical Impression: Pneumonia Qualifiers: Pneumonia type: due to unspecified organism Laterality: unspecified laterality Lung location: unspecified part of lung Qualified Code(s): J18.9 - Pneumonia, unspecified organism Disposition: Still a Patient Condition: Fair Time of Disposition: 21:26 General Adult HPI - General Stated complaint: SOB Time Seen by Provider: 11/08/18 20:17 Source: patient, family Mode of arrival: EMS Limitations: no limitations Nursing Notes Reviewed: Yes Vital Signs Reviewed: Yes - History of Present Illness HPI Narrative: 78-year-old male with a past medical history of active lung cancer with extensive metastases complaining of increased shortness of breath over the last couple of days with increased sputum production and subjective fevers and chills. Son at bedside states that the patient has become more short of breath, he has been gasping for air at times, although they have not noticed if he has felt warm. Initial oxygen saturation 89-91% on baseline oxygen with hypotension 89/53. Pt will be started on bipap which will likely decrease pressure transiently. Family at bedside does not know code status, but does know that he would not want any CPR in the event that his heart stopped or he stopped breathing. - Related Data Home Medications Medication Instructions Recorded Confirmed Pantoprazole Sodium 40 mg PO DAILY 07/07/17 10/27/18 Albuterol Sulfate [Proair Hfa] 1 puff IH QID PRN 04/29/18 10/27/18 Previous Rx's Medication Instructions Recorded Docusate [Colace] 200 mg PO BID #120 capsule 07/16/17 Aspirin Enteric Coated [Aspirin EC] 81 mg PO DAILY #30 tablet. 07/20/17 Promethazine [Phenergan] 25 mg PO Q6HR PRN #30 tablet 07/22/17 Nitroglycerin [Nitrostat] 0.4 mg SL Q1H PRN #30 tab.subl 08/14/17 Magic Mouthwash [Magic Mouthwash 10 ml PO QID PRN #240 ml 10/14/17 BLM] Mirtazapine [Remeron] 15 mg PO HS #30 tablet 01/19/18 Metoprolol [Lopressor] 25 mg PO BID #60 tablet 01/27/18 Cephalexin [Keflex] 500 mg PO Q6HR #28 capsule 10/20/18 OxyCODONE Immed Rel [Roxicodone 5 10 mg PO Q4H PRN 30 Days #90 tablet 10/27/18 MG] Allergies Allergy/AdvReac Type Severity Reaction Status Date / Time No Known Allergies Allergy Verified 10/27/18 09:25 Constitutional: Reports: fever, chills Cardiovascular: Denies: chest pain Respiratory: Reports: cough, dyspnea, sputum production Gastrointestinal: Reports: abdominal pain. Denies: nausea, vomiting, diarrhea, constipation Musculoskeletal: Reports: back pain Neurological: Reports: headache Endocrine: Reports: fatigue Past Medical History - Past Medical History Medical history: Reports: COPD Psychiatric history: Reports: no psych history - Social History Smoking Status: Current every day smoker Smokeless Tobacco Status: No Alcohol use: Reports: none Drug use: Reports: none Physical Exam - Head Head exam: atraumatic, normocephalic - Eye Eye exam: Present: conjunctival injection - ENT ENT exam: mucous membranes dry - Chest Chest inspection: Present: normal inspection, symmetric chest wall rise - Respiratory Respiratory exam: Present: wheezes - Cardiovascular Cardiovascular exam: Present: regular rate, normal rhythm - Abdominal Exam Abdominal exam: Present: soft, distention, other (left sided mass, tender to palpation, present for a while) - Extremities Exam Extremities exam: Present: normal inspection, full ROM - Neurological Exam Neurological exam: Present: alert - Psychiatric Psychiatric exam: Present: normal affect, normal mood - Skin Skin exam: Present: warm, dry, intact Medical Decision Making - [facility] Narrative Medical decision making narrative: Patient will be signed out to Dr. Dunaway, please see his note for full results of workup and disposition. - Medical Records Medical records reviewed: Yes I reviewed the patient's medical records.
[2018-11-08 21:03] LABS: Basophils % 0.1 %; Hemoglobin 13.1 g/dL (12.9-16.9); Immature Granulocytes % 7.5 % (0-4); Mean Platelet Volume 9.3 fL (9.4-12.4)
[2018-11-08 21:04] LABS: Hematocrit 39.5 % (37.5-50.1); Lymphocytes # 0.5 K/mcL (0.6-4.6); Lymphocytes % 2.1 %; Mean Corpuscular HGB Conc 33.2 g/dL (31.6-35.5); Mean Corpuscular Volume 90.4 fL (83.0-100.0); Monocytes # 0.6 K/mcL (0.0-1.3); Monocytes % 2.4 %; Neutrophils # 22.1 K/mcL (1.6-8.9); Platelet Count 194 K/mcL (140-400); Red Blood Count 4.37 M/mcL (4.19-5.50); Red Cell Distribution Width 14.7 % (11.5-14.5); Segmented Neutrophils % 87.9 %
[2018-11-08 21:10] LABS: INR 1.2; Prothrombin Time 13.1 Seconds (9.4-12.1)
[2018-11-08] MEDS ORDERED: Promethazine 12.5 MG in 0.9 % Sodium Chloride 50 ML IVPB ONE (21:12)
[2018-11-08 21:21] LABS: Platelet Estimate Normal (Normal)
[2018-11-08] MEDS ORDERED: Ondansetron 4 MG/2 ML VIAL IVP ONE (21:22)
[2018-11-08] MEDS ORDERED: Piperacillin/Tazobactam 3.375 GM in 0.9 % Sodium Chloride Mini Bag 100 ML IVPB ONE (21:25)
[2018-11-08] MEDS ORDERED: Levofloxacin 500 MG/100 ML 500 MG/100 ML BAG IVPB ONE (21:25)
[2018-11-08 21:26] LABS: Albumin 3.4 g/dL (3.5-5.7); Albumin/Globulin Ratio 0.9 (1.1-2.2); Bilirubin,Direct 0.4 mg/dL (0.0-0.2); Bilirubin,Indirect 0.3 mg/dL (0.0-1.2); Bilirubin,Total 0.7 mg/dL (0.3-1.0); Calcium 8.6 mg/dL (8.6-10.3); Globulin 3.9 g/dL (2.4-3.5); Total Protein 7.3 g/dL (6.4-8.9); Troponin I 0.19 ng/mL (< 0.04)
[2018-11-08] MEDS ORDERED: Calcium Gluconate 2,000 MG in 0.9 % Sodium Chloride 100 ML IVPB ONE (21:38)
[2018-11-08] MEDS ORDERED: *HR* Dextrose 50 % in Water (Syg) 50 ML SYRINGE IVP ONE (21:38)
[2018-11-08] MEDS ORDERED: Insulin Human Regular 10 UNIT in 0.9 % Sodium Chloride 10 ML IV ONE (21:38)
[2018-11-08] MEDS ORDERED: 0.9 % Sodium Chloride 1,000 ML IVC ONE (21:39)
[2018-11-08] MEDS ORDERED: Sodium Bicarbonate 50 MEQ/50 ML VIAL IVP ONE (21:39)
[2018-11-08] MEDS ORDERED: Aspirin 325 MG TABLET PO ONE (21:44)
[2018-11-08 21:56] LABS: ABG Base Excess -7 mEq/L (-2 to 3); ABG HCO3 16 mEq/L (21-27); ABG Oxygen Saturation 93 % (95-98); ABG PCO2 24 mmHg (35-45); ABG PH 7.43 pH Units (7.32-7.45); ABG PO2 61 mmHg (85-104); ABG TCO2 16 mEq/L (20-26)
[2018-11-08] MEDS ORDERED: *HR* Dextrose 50 % in Water (Syg) 50 ML SYRINGE ONE (22:05)
--- NOTE | 2018-11-08 23:44 | Internal Med History&Physical ---
<Juve Rosenberg S - Last Filed: 11/09/18 01:31> Date of Encounter: 11/09/18 Time of Encounter: 00:33 Internal Medicine - H&P: HPI Chief complaint: sob Admitted From: Home Plans for Post Hospital Care: Home History of present illness: Mr. Ramirez is a 78 year old male with a PMH of COPD, tobacco abuse, metastatic cancer, and GERD presents to the hospital. He came from home with an increase in shortness of breath. He reports that over the last couple of days, he has been having increasing trouble breathing and now has started to have an increase in sputum production. He denies fevers and chills. He reports that he hasn't taken anything other than his inhaler. Son was at bedside when the ER resident saw him and states that the patient has become more short of breath, he has been gasping for air at times, although they have not noticed if he has felt warm. Initial oxygen saturation 89-91% on baseline oxygen with hypotension 89/53 when he arrived to the hospital. He required BiPAP. Granddaughter told me that she wasn't sure of his wishes for CODE STATUS but nursing reported he wishes to be a DNR-CCA. He then reported that he would want compressions at one point. Pt has no assigned POA at this ti me. In the ER he was found to have a leukocytosis of 25.1. He had multiple electrolyte abnormalities and a new elevation in creatinine. XR of his chest showed concern for infxn and he was started on antibiotics at that time. He was found to have an elevated troponin as well. He will be admitted for further treatment. Past Med Surg Social Fam HX - Past Medical History Medical history: cancer, COPD Additional medical history: lung cancer Psychiatric history: no psych history - Past Surgical History Additional surgical history: right inguinal hernia. left inguinal hernia - Social History Smoking Status: Former smoker Smokeless Tobacco Status: No Alcohol use: none Drug use: none - Family History Mother Living Status: Hx Family Respiratory Disorders: Yes (asthma) Father Living Status: Hx Family Cardiac Disorders: Yes (mother) Hx Family Respiratory Disorders: Yes (mother asthma) Hx Family Cancer: Yes (father) Hx Family GI Disorders: No Hx Family Endocrine Disorder: No Hx Family Neuromuscular Disorders: No Hx Family Neurologic Disorders: No Hx Family HEENT Disorders: No Hx Family Autoimmune Disorders: No Internal Medicine - H&P: Meds Pantoprazole Sodium 40 mg PO DAILY 07/07/17 [History] Docusate [Colace] 200 mg PO BID #120 capsule 07/16/17 [Rx] Aspirin Enteric Coated [Aspirin EC] 81 mg PO DAILY #30 tablet.dr 07/20/17 [Rx] Promethazine [Phenergan] 25 mg PO Q6HR PRN #30 tablet 07/22/17 [Rx] Nitroglycerin [Nitrostat] 0.4 mg SL Q1H PRN #30 tab.subl 08/14/17 [Rx] Magic Mouthwash [Magic Mouthwash BLM] 10 ml PO QID PRN #240 ml 10/14/17 [Rx] Mirtazapine [Remeron] 15 mg PO HS #30 tablet 01/19/18 [Rx] Metoprolol [Lopressor] 25 mg PO BID #60 tablet 01/27/18 [Rx] Albuterol Sulfate [Proair Hfa] 1 puff IH QID PRN 04/29/18 [History] Cephalexin [Keflex] 500 mg PO Q6HR #28 capsule 10/20/18 [Rx] OxyCODONE Immed Rel [Roxicodone 5 MG] 10 mg PO Q4H PRN 30 Days #90 tablet 10/27/18 [Rx] Allergy/AdvReac Type Severity Reaction Status Date / Time No Known Allergies Allergy Verified 10/27/18 09:25 All Systems PM: A 10-system review of systems was performed and is negative for pertinent findings except as documented above in the HPI. - Constitutional Constitutional: anorexia, chills, fever(s), lethargy, malaise, weight loss - EENT Eyes: no blurry vision, no change in vision Ears: ear pain, tinnitus Nose, mouth and throat: dry mouth, no epistaxis - Cardiovascular Cardiovascular ROS IM: chest pain, dyspnea, dyspnea on exertion - Respiratory Respiratory: cough, dyspnea, dyspnea on exertion, chest congestion, excessive phlegm production, change in phlegm color, no hemoptysis - Gastrointestinal Gastrointestinal: abdominal pain, nausea, vomiting, no diarrhea - Genitourinary Genitourinary ROS male: no dysuria, no hematuria - Musculoskeletal Musculoskeletal ROS IM: back pain, muscle weakness, myalgias, neck pain - Integumentary Integumentary IM: no rash, no unusual bruising - Neurological Neurological ROS: headache(s), weakness, no loss of vision - Psychiatric Psychiatric: anxiety, depression - Endocrine Endocrine IM: fatigue - Hematologic/Lymphatic Hematologic/Lymphatic: no easy bleeding, no easy bruising - Constitutional Vitals: Temp Pulse Resp BP Pulse Ox 98.5 F 90 40 88/61 99 11/08/18 20:30 11/08/18 20:30 11/08/18 20:31 11/08/18 20:30 11/08/18 20:31 General appearance: Present: disheveled, A&O X 3, severe distress Exam: x - Head Head exam: Present: atraumatic, normocephalic - Eye Eye exam: Present: EOMI, sclera anicteric - ENT ENT exam: Present: mucous membranes dry, normal external ear exam, TM's normal bilaterally - Neck Neck exam general surgery: Present: supple, trachea midline - Respiratory Respiratory exam: Present: decreased breath sounds, prolonged expiratory phase, respiratory distress, rhonchi, tachypnea - Cardiovascular Cardiovascular exam: Present: +S1, +S2, tachycardia - GI/Abdominal GI/Abdominal exam: Present: distended, firm, tenderness, no peritoneal signs. Absent: rebound, rigid Additional comments: mass palpated at the left lower quadrant - Extremities Exam Extremities exam: Present: normal capillary refill, normal inspection, warm. A bsent: pedal edema, tenderness - Back Exam Back exam: Present: normal inspection. Absent: rash noted, tenderness - Neurological Exam Neurological exam: Present: CN II-XII intact, oriented X3, no focal deficits - Psychiatric Psychiatric exam: Present: agitated, anxious - Skin Skin exam: Present: dry, intact, warm Internal Med - H&P Results - Labs CBC & Chem 7: 11/08/18 20:43 11/08/18 20:43 Labs: Short CBC 11/08/18 Range/Units 20:43 WBC 25.1 H (4.3-11.1) K/mcL Hgb 13.1 (12.9-16.9) g/dL Hct 39.5 (37.5-50.1) % Plt Count 194 (140-400) K/mcL Neutrophils # 22.1 H (1.6-8.9) K/mcL BMP 11/08/18 20:43 Sodium 128 L Potassium 6.0 H Chloride 90 L Carbon Dioxide 22 L BUN 69 H Creatinine 4.38 H Glucose 64 L Calcium 8.6 Cardiac Enzymes 11/08/18 Range/Units 20:43 Troponin I 0.19 H* (< 0.04) ng/mL Liver Function 11/08/18 Range/Units 20:43 Total Bilirubin 0.7 (0.3-1.0) mg/dL Direct Bilirubin 0.4 H (0.0-0.2) mg/dL AST 85 H (13-39) Units/L ALT 45 (7-52) Units/L Alkaline Phosphatase 139 H (34-104) Units/L Albumin 3.4 L (3.5-5.7) g/dL - ABG Interpretation ABG results: 11/08/18 21:51 ABG pH 7.43 ABG pCO2 24 L ABG pO2 61 L ABG HCO3 16 L ABG Total CO2 16 L ABG O2 Saturation 93 L ABG Base Excess -7 L - Impressions ITS Impressions Chest X-Ray 11/08/18 20:17 IMPRESSION: Increased left lung opacity likely infection. Underlying malignancy should be excluded. D/ / 11/08/2018 21:27:41 Bernardino Hanley MD / [facility] Interpreting Provider: Bernardino Hanley MD - Assessment and Plan (1) Sepsis Current Visit: Yes Status: Acute Assessment and plan: Pt with history of metastatic lung cancer presents with increasing SOB, cough, sputum production - meets SIRS criteria for HR, BP, RR, WBC with lactic acid of 2.8 - has not been hospitalized in the last 90 days, but has had multiple hospital visits and is high risk patient - sepsis likely secondary to underlying pneumonia causing AECOPD XR chest from admission: Increased left lung opacity likely infection CT abdomen: Short interval increase in size of abdominopelvic metastatic disease since 10/16/2018 suggests aggressive disease. Metastatic implants involve the retroperitoneum, peritoneum and ventral abdominal soft tissues. A periaortic metastasis splays the celiac and superior mesenteric arteries with blurring of the intervening fat planes. Procalcitonin of >100 Plan: - 1 L bolus now 0.9% NS followed by 125cc/hr 0.9% NS - zofran prn nausea - duonebs jenn - blood cx x2 pending - sputum cx pending - urine antigens pending - palliative care consulted - continue vancomycin, zosyn, levaquin day 1 - solumedrol 40mg q12hr - FEN: NPO except for meds - DVT prophylaxis: sq heparin - disposition: will require IV abx, palliative to see, nephrology consulted Patient unclear about CODE STATUS and his wishes at this time. He told multiple people different wishes. CODE STATUS at this time is DNR-CC as per the state forms that were signed on 10/28/18. Qualifiers: Sepsis type: sepsis due to unspecified organism Qualified Code(s): A41.9 - Sepsis, unspecified organism (2) Acute renal failure Current Visit: Yes Status: Acute Assessment and plan: Creatinine on admission 4.38, previous creatinine have been within normal limits - ?pre-renal from poor PO intake, ?post-renal from obstruction - CT noted to have metastatic implants of the retropeitoneum but no hydronephrosis Plan: - nephrology consulted - retroperitoneal US pending, r/o obstruction CT did note retroperitoneal mets - urine sodium/creatinine pending - renally dose medications - avoid nephrotoxins Qualifiers: Acute renal failure type: unspecified Qualified Code(s): N17.9 - Acute kidney failure, unspecified (3) Acute respiratory failure Current Visit: Yes Status: Acute Assessment and plan: Pt requiring increasing oxygen requirements, requiring BiPAP. See above. Qualifiers: Respiratory failure complication: unspecified whether with hypoxia or hypercapnia Qualified Code(s): J96.00 - Acute respiratory failure, unspecified whether with hypoxia or hypercapnia (4) Hyperkalemia Current Visit: Yes Status: Acute Assessment and plan: Potassium 6.0 on admission. Given calcium glucuronate, insulin/dextrose, duonebs. Repeat BMP pending. (5) Pneumonia Current Visit: Yes Status: Acute Assessment and plan: See above for sepsis. Qualifiers: Pneumonia type: due to unspecified organism Laterality: unspecified laterality Lung location: unspecified part of lung Qualified Code(s): J18.9 - Pneumonia, unspecified organism (6) COPD exacerbation Current Visit: Yes Status: Acute Assessment and plan: Pt with AECOPD. Likely secondary to PNA and requiring increasing O2 needs and BiPAP. See plan for sepsis. (7) GERD (gastroesophageal reflux disease) Current Visit: No Status: Chronic Assessment and plan: con't pantoprazole when meds reconciled. Qualifiers: Esophagitis presence: without esophagitis Qualified Code(s): K21.9 - Gastro-esophageal reflux disease without esophagitis (8) Tobacco use Current Visit: No Status: Chronic Assessment and plan: smokes 1ppd, chronic, counseled. (9) Leukocytosis Current Visit: Yes Status: Acute Assessment and plan: WBC 25.1 on admission. Continue to follow, likely 2/2 PNA. Qualifiers: Leukocytosis type: unspecified Qualified Code(s): D72.829 - Elevated white blood cell count, unspecified (10) Elevated troponin Current Visit: Yes Status: Acute Assessment and plan: Troponin 0.19 on admission. Type 1 vs type 2 in the setting of severe sepsis 2/2 PNA. Will trend x3. ECHO pending. EKG showing no acute ST elevation, old Q waves in anterior and inferior leads. (11) Lactic acidosis Current Visit: Yes Status: Acute Assessment and plan: Lactic acid 2.8 in the setting of sepsis. Repeat LA pending. (12) Hyponatremia Current Visit: Yes Status: Acute Assessment and plan: Sodium 128 on admission. Urine studies pending. Repeat BMP pending. (13) DVT prophylaxis Current Visit: No Status: Acute Assessment and plan: heparin sq (14) Metastatic cancer Current Visit: Yes Status: Acute Assessment and plan: Evidenced on imaging. CT soft tissue of neck: - left apical mass (Pancoast tumor) extends to pleural and paraspinal tissues. 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 Brain MRI negative for metastasis. CT abd/pelvis: - Short interval increase in size of abdominopelvic metastatic disease since 10/16/2018 suggests aggressive disease. - Metastatic implants involve the retroperitoneum, peritoneum and ventral abdominal soft tissues. - A periaortic metastasis splays the celiac and superior mesenteric arteries with blurring of the intervening fat planes. - Cannot exclude vascular invasion CT chest: New massive infiltrative mass in the mediastinum-left hilar region extending into the left upper lobe, compatible with bronchogenic carcinoma. The mass encases the mediastinal vasculature. New metastatic mass left axillary region. New retroperitoneal metastasis, increased size of left adrenal metastasis, and new metastatic mass posterior to the right kidney Patchy sclerosis in the vertebral bodies, likely metastatic - Time Spent With Patient Total time spent is greater than 50% in coordination of care (as documented) at patient's floor/unit and/or counseling patient: 25 - 35 minutes <Augustin ePrrin - Last Filed: 11/09/18 01:47> Date of Encounter: 11/09/18 Internal Medicine - H&P: HPI History of present illness: Mr. Ramirez is a 78 year old male All Systems PM: A 10-system review of systems was performed and is negative for pertinent findings except as documented above in the HPI. - Constitutional Vitals: Temp Pulse Resp BP Pulse Ox 98.5 F 94 27 95/65 90 11/08/18 20:30 11/09/18 01:32 11/09/18 01:32 11/09/18 01:32 11/09/18 01:32 Internal Med - H&P Results - Labs CBC & Chem 7: 11/08/18 20:43 11/08/18 20:43 Labs: Short CBC 11/08/18 Range/Units 20:43 WBC 25.1 H (4.3-11.1) K/mcL Hgb 13.1 (12.9-16.9) g/dL Hct 39.5 (37.5-50.1) % Plt Count 194 (140-400) K/mcL Neutrophils # 22.1 H (1.6-8.9) K/mcL BMP 11/08/18 20:43 Sodium 128 L Potassium 6.0 H Chloride 90 L Carbon Dioxide 22 L BUN 69 H Creatinine 4.38 H Glucose 64 L Calcium 8.6 Cardiac Enzymes 11/08/18 11/09/18 Range/Units 20:43 00:12 Troponin I 0.19 H* 0.16 H* (< 0.04) ng/mL Liver Function 11/08/18 Range/Units 20:43 Total Bilirubin 0.7 (0.3-1.0) mg/dL Direct Bilirubin 0.4 H (0.0-0.2) mg/dL AST 85 H (13-39) Units/L ALT 45 (7-52) Units/L Alkaline Phosphatase 139 H (34-104) Units/L Albumin 3.4 L (3.5-5.7) g/dL - ABG Interpretation ABG results: 11/08/18 21:51 ABG pH 7.43 ABG pCO2 24 L ABG pO2 61 L ABG HCO3 16 L ABG Total CO2 16 L ABG O2 Saturation 93 L ABG Base Excess -7 L - Impressions ITS Impressions Chest X-Ray 11/08/18 20:17 IMPRESSION: Increased left lung opacity likely infection. Underlying malignancy should be excluded. D/ / 11/08/2018 21:27:41 Bernardino Hanley MD / [facility] Interpreting Provider: Bernardino Hanley MD - Assessment and Plan (1) GERD (gastroesophageal reflux disease) Current Visit: No Status: Chronic Qualifiers: Esophagitis presence: without esophagitis Qualified Code(s): K21.9 - Gastro-esophageal reflux disease without esophagitis (2) Pneumonia Current Visit: Yes Status: Acute Qualifiers: Pneumonia type: due to unspecified organism Laterality: unspecified laterality Lung location: unspecified part of lung Qualified Code(s): J18.9 - Pneumonia, unspecified organism (3) Tobacco use Current Visit: No Status: Chronic (4) DVT prophylaxis Current Visit: No Status: Acute (5) COPD exacerbation Current Visit: Yes Status: Acute (6) Acute respiratory failure Current Visit: Yes Status: Acute Qualifiers: Respiratory failure complication: unspecified whether with hypoxia or hypercapnia Qualified Code(s): J96.00 - Acute respiratory failure, unspecified whether with hypoxia or hypercapnia (7) Hyperkalemia Current Visit: Yes Status: Acute (8) Sepsis Current Visit: Yes Status: Acute Qualifiers: Sepsis type: sepsis due to unspecified organism Qualified Code(s): A41.9 - Sepsis, unspecified organism (9) Acute renal failure Current Visit: Yes Status: Acute Qualifiers: Acute renal failure type: unspecified Qualified Code(s): N17.9 - Acute kidney failure, unspecified (10) Leukocytosis Current Visit: Yes Status: Acute Qualifiers: Leukocytosis type: unspecified Qualified Code(s): D72.829 - Elevated white blood cell count, unspecified (11) Elevated troponin Current Visit: Yes Status: Acute (12) Lactic acidosis Current Visit: Yes Status: Acute (13) Hyponatremia Current Visit: Yes Status: Acute (14) Metastatic cancer Current Visit: Yes Status: Acute - Time Spent With Patient Total time spent is greater than 50% in coordination of care (as documented) at patient's floor/unit and/or counseling patient: - Attending Attestation I performed a history and physical exam of the patient and discussed management with the resident. I reviewed the resident's note and agree with the documented findings and plan of care. Fritz Ramirez is a 78 year old man with metastatic small cell left lung cancer who underwent palliative chemotherapy a year ago and has continued to do poorly. He remains an active smoker. He presents to the ER brought in by family members with complaints of increasing shortness of breath, found somewhat hypotensive and hypoxic. Lab work revealed leukocytosis, lactic acidemia, hyponatremia, hypochloremia and hyperkalemia. Troponin initially elevated at 0.19. EKG showing Q waves and tachycardic. Physical exam remarkable for dry skin and mucous membranes, tachypneic, cachectic and chronically ill- appearing, diffuse wheezing with shortened expirations. Will manage for severe sepsis suspected secondary to complicated pneumonia given the presence of underlying lung malignancy. He will benefit from empiric antimicrobials as we await further culture data. Standing nebulizer therapy and steroids indicated. Stage 3 RACHELL noted with electrolyte imbalances. Consideration also given to adrenal insufficiency given the findings. Will provide fluid resuscitation and temporizing measures for the potassium. Will check a retroperitoneal ultrasound. He will benefit from palliative and nephrology consultations. The patient was placed DNR/CC based on oncology noted discussion with the patient expressing these wishes. NAIMA VANCE.
[2018-11-08] MEDS ORDERED: Naloxone 0.4 MG/ML INJ IVP PRN (23:47)
[2018-11-09 00:45] LABS: Magnesium 2.5 mg/dL (1.6-2.6)
[2018-11-09] MEDS ORDERED: Ipratropium/Albuterol Neb 3 ML IH PRN (00:49)
[2018-11-09 00:56] LABS: Troponin I 0.16 ng/mL (< 0.04)
[2018-11-09] MEDS ORDERED: Ondansetron 4 MG/2 ML VIAL IVP PRN (01:14)
[2018-11-09] MEDS ORDERED: 0.9 % Sodium Chloride 1,000 ML IVC ONE (01:29)
[2018-11-09] MEDS: *HR* Heparin 5,000 UNIT/ML VIAL SQ SCH ×3 (02:21→21:47)
[2018-11-09] MEDS ORDERED: Ipratropium/Albuterol Neb 3 ML IH ONE (02:46)
[2018-11-09 03:01] LABS: Hematocrit 37.1 % (37.5-50.1); Hemoglobin 12.4 g/dL (12.9-16.9); Mean Corpuscular HGB Conc 33.4 g/dL (31.6-35.5); Mean Corpuscular Hemoglobin 30.4 pg (28.0-33.3); Mean Corpuscular Volume 90.9 fL (83.0-100.0); Mean Platelet Volume 9.3 fL (9.4-12.4); Platelet Count 176 K/mcL (140-400); Red Blood Count 4.08 M/mcL (4.19-5.50); Red Cell Distribution Width 14.6 % (11.5-14.5)
[2018-11-09 03:21] LABS: Albumin 3.4 g/dL (3.5-5.7); Bilirubin,Total 0.8 mg/dL (0.3-1.0); Calcium 8.6 mg/dL (8.6-10.3); Globulin 3.5 g/dL (2.4-3.5); Potassium 5.3 mEq/L (3.5-5.1); Total Protein 6.9 g/dL (6.4-8.9)
[2018-11-09] MEDS: Ipratropium/Albuterol Neb 3 ML IH SCH ×6 (03:21→23:53)
[2018-11-09 03:24] LABS: Sodium, Urine 80.4 mEq/L
[2018-11-09] MEDS: *HR* OxyCODONE Immed Rel 5 MG TABLET PO PRN ×4 (03:37→22:06)
[2018-11-09] MEDS: 0.9 % Sodium Chloride 1,000 ML IVC SCH ×3 (03:39→20:10)
[2018-11-09] MEDS: MethylPREDNISolone 40 MG/ML VIAL IVP SCH ×2 (05:46→17:13)
[2018-11-09] MEDS ORDERED: Piperacillin/Tazobactam 3.375 GM in 0.9 % Sodium Chloride Mini Bag 100 ML IVPB SCH ×2 (08:00→10:00)
[2018-11-09] MEDS: Piperacillin/Tazobactam 3.375 GM in 0.9 % Sodium Chloride Mini Bag 100 ML IVPB SCH ×2 (08:55→17:13)
[2018-11-09] MEDS: Aspirin Enteric Coated 81 MG Tablet PO SCH (09:10)
--- NOTE | 2018-11-09 09:13 | Nephrology Consult Note ---
Date of Encounter: 11/09/18 Time of Encounter: 09:10 Assessment and Plan (1) Acute kidney injury Current Visit: Yes Status: Acute Suspect pre-renal from nausea/vomiting/poor po intake Renal function already improving Scr 4.04, GFR 14 Robust UOP 1750 Renal ultrasound pending Urine creatinine 28 Urine sodium 80.4 Will add UA, urine culture, urine eosinophils, serum uric acid level, urine albumin to creatinine ratio Continue strict I/Os Spoke with son-in-law to try and clarify code status; he is not sure what patient's wishes are (2) Hyperkalemia Current Visit: Yes Status: Acute Improving-K+ today 5.3, down from 6.0 (3) Sepsis Current Visit: Yes Status: Acute per primary team Qualifiers: Sepsis type: sepsis due to unspecified organism Qualified Code(s): A41.9 - Sepsis, unspecified organism History of Present Illness - Reason for Consult Consult date: 11/09/18 - Chief Complaint RACHELL, sepsis - History of Present Illness Mr. Ramirez is a 78 year old male with a PMH of COPD, tobacco abuse, metastatic cancer, and GERD presents to the hospital. He came from home with an increase in shortness of breath. He has been admitted with sepsis and RACHELL; previous renal function was WNL. Patient is sleeping soundly during exam; son-in-law at bedside. Past Med Surg Social Fam HX - Past Medical History Medical history: cancer, COPD Additional medical history: lung cancer Psychiatric history: no psych history - Past Surgical History Additional surgical history: right inguinal hernia. left inguinal hernia - Social History Smoking Status: Former smoker Smokeless Tobacco Status: No Alcohol use: none Drug use: none - Family History Mother Living Status: Hx Family Respiratory Disorders: Yes (asthma) Father Living Status: Hx Family Cardiac Disorders: Yes (mother) Hx Family Respiratory Disorders: Yes (mother asthma) Hx Family Cancer: Yes (father) Hx Family GI Disorders: No Hx Family Endocrine Disorder: No Hx Family Neuromuscular Disorders: No Hx Family Neurologic Disorders: No Hx Family HEENT Disorders: No Hx Family Autoimmune Disorders: No Medications and Allergies Pantoprazole Sodium 40 mg PO DAILY 07/07/17 [History] Docusate [Colace] 200 mg PO BID #120 capsule 07/16/17 [Rx] Aspirin Enteric Coated [Aspirin EC] 81 mg PO DAILY #30 tablet. 07/20/17 [Rx] Promethazine [Phenergan] 25 mg PO Q6HR PRN #30 tablet 07/22/17 [Rx] Nitroglycerin [Nitrostat] 0.4 mg SL Q1H PRN #30 tab.subl 08/14/17 [Rx] Magic Mouthwash [Magic Mouthwash BLM] 10 ml PO QID PRN #240 ml 10/14/17 [Rx] Mirtazapine [Remeron] 15 mg PO HS #30 tablet 01/19/18 [Rx] Metoprolol [Lopressor] 25 mg PO BID #60 tablet 01/27/18 [Rx] Albuterol Sulfate [Proair Hfa] 1 puff IH QID PRN 04/29/18 [History] Cephalexin [Keflex] 500 mg PO Q6HR #28 capsule 10/20/18 [Rx] OxyCODONE Immed Rel [Roxicodone 5 MG] 10 mg PO Q4H PRN 30 Days #90 tablet 10/27/18 [Rx] Allergy/AdvReac Type Severity Reaction Status Date / Time No Known Allergies Allergy Verified 10/27/18 09:25 Review of Systems All Systems: reviewed and no additional remarkable complaints except as stated Constitutional: malaise, no chills, no fever(s) Cardiovascular: dyspnea, dyspnea on exertion Respiratory: dyspnea, dyspnea on exertion Psychiatric: anxiety, no behavioral changes Exam - Vital Signs Vital signs: Initial Vital Signs Resp Pulse Ox 44 91 11/08/18 20:25 11/08/18 20:25 Vital Signs - Last 8 Hours Temp Pulse Resp BP Pulse Ox 11/09/18 07:42 18 92 11/09/18 07:15 97.8 F 84 20 121/85 93 11/09/18 03:37 109/61 11/09/18 03:21 24 90 11/09/18 02:24 97.4 F L 88 24 107/74 94 11/09/18 01:32 94 27 95/65 90 Intake and Output 11/08/18 11/09/18 11/09/18 23:59 07:59 15:59 Intake Total 280.6 / 280.6 2350 / 2350 0 / 2350 Output Total 1750 / 1750 Balance 280.6 / 280.6 600 / 600 0 / 600 Intake: IV Fluids 280.6 / 280.6 2350 / 2350 HumuLIN R 10 UNIT In Normal 10.1 / 10.1 Saline Flush 10 ML @ 1212 mls/ hr IV ONCE ONE Rx#:[id number] 0.9 % Sodium Chloride 1,000 ML 2000 / 2000 @ 999 mls/hr IVC .Q1H1M ONE Rx# :[id number] Calcium Gluconate 2,000 MG In 0 120 / 120 .9 % Sodium Chloride 100 ML @ 220 mls/hr IVPB ONCE ONE Rx#: [id number] Levaquin Premix 500mg/100mL 500 100 / 100 mg In 100 ml @ 100 mls/hr IVPB ONCE ONE Rx#:[id number] Zosyn 3.375 GM In 0.9 % Sodium 100 / 100 Chloride (Mini-Bag +) 100 ML @ 25 mls/hr IVPB ONCE ONE Rx#: [id number] Phenergan 12.5 MG In 0.9 % 50.5 / 50.5 Sodium Chloride 50 ML @ 204 mls /hr IVPB ONCE ONE Rx#: [id number] Vancocin 1,250 MG In 0.9 % 250 / 250 Sodium Chloride 250 ML @ 166.67 mls/hr IVPB ONCE ONE Rx#: [id number] Oral 0 / 0 0 / 0 Output: Catheter 1750 / 1750 Urethral (Duran) 900 / 900 Other: Meal NPO Percent of Meal Consumed 0% Weight 80.739 kg - General Appearance General appearance: frail EENT: ATNC Neck: supple Respiratory: course breath sounds, rhonchi Cardiology: no edema, normal S1, normal S2 Gastrointestinal: no tenderness, no guarding Integumentary: warm and dry Results - Lab Results 11/09/18 02:16 11/09/18 02:16 Most recent lab results 11/08/18 11/08/18 11/09/18 20:43 21:51 00:12 ABG pH 7.43 ABG pCO2 24 L ABG pO2 61 L ABG HCO3 16 L ABG O2 Saturation 93 L Calcium 8.6 Magnesium 2.5 Urine Creatinine Urine Sodium 11/09/18 11/09/18 02:16 02:57 ABG pH ABG pCO2 ABG pO2 ABG HCO3 ABG O2 Saturation Calcium 8.6 Magnesium Urine Creatinine 28 Urine Sodium 80.4 Consult Discharge Plan - Plan Referrals: Willem Le DO [Primary Care Provider] -
--- NOTE | 2018-11-09 09:54 | Internal Med Progress Note ---
Hospitalist Progress Note - Encounter Date of Encounter: 11/09/18 - Exam Vitals: Temp Pulse Resp BP Pulse Ox 97.8 F 84 18 121/85 92 11/09/18 07:15 11/09/18 07:15 11/09/18 07:42 11/09/18 07:15 11/09/18 07:42 - Assessment and Plan (1) GERD (gastroesophageal reflux disease) Current Visit: No Status: Chronic (2) Pneumonia Current Visit: Yes Status: Acute (3) Tobacco use Current Visit: No Status: Chronic (4) DVT prophylaxis Current Visit: No Status: Acute (5) COPD exacerbation Current Visit: Yes Status: Acute (6) Acute respiratory failure Current Visit: Yes Status: Acute (7) Hyperkalemia Current Visit: Yes Status: Acute (8) Sepsis Current Visit: Yes Status: Acute (9) Acute renal failure Current Visit: Yes Status: Acute (10) Leukocytosis Current Visit: Yes Status: Acute (11) Elevated troponin Current Visit: Yes Status: Acute (12) Lactic acidosis Current Visit: Yes Status: Acute (13) Hyponatremia Current Visit: Yes Status: Acute (14) Metastatic cancer Current Visit: Yes Status: Acute - Time Spent with Patient Total time spent is greater than 50% in coordination of care (as documented) at patient's floor/unit and/or counseling patient: Internal Medicine: Result - Labs CBC & Chem 7: 11/09/18 02:16 11/09/18 02:16 Labs: Short CBC 11/08/18 11/09/18 Range/Units 20:43 02:16 WBC 25.1 H 18.4 H (4.3-11.1) K/mcL Hgb 13.1 12.4 L (12.9-16.9) g/dL Hct 39.5 37.1 L (37.5-50.1) % Plt Count 194 176 (140-400) K/mcL Neutrophils # 22.1 H (1.6-8.9) K/mcL BMP 11/08/18 11/09/18 20:43 02:16 Sodium 128 L 129 L Potassium 6.0 H 5.3 H Chloride 90 L 93 L Carbon Dioxide 22 L 19 L BUN 69 H 67 H Creatinine 4.38 H 4.04 H Glucose 64 L 59 L Calcium 8.6 8.6 Cardiac Enzymes 0511/09/18 11/09/18 Range/Units 20:43 00:12 04:23 Troponin I 0.19 H* 0.16 H* 0.12 H* (< 0.04) ng/mL Liver Function 11/08/18 11/09/18 Range/Units 20:43 02:16 Total Bilirubin 0.7 0.8 (0.3-1.0) mg/dL Direct Bilirubin 0.4 H (0.0-0.2) mg/dL AST 85 H 70 H (13-39) Units/L ALT 45 40 (7-52) Units/L Alkaline Phosphatase 139 H 135 H (34-104) Units/L Albumin 3.4 L 3.4 L (3.5-5.7) g/dL - ABG Interpretation ABG results: ABG ABG pH 7.43 pH Units (7.32-7.45) 11/08/18 21:51 ABG pCO2 24 mmHg (35-45) L 11/08/18 21:51 ABG pO2 61 mmHg (85-104) L 11/08/18 21:51 ABG O2 Saturation 93 % (95-98) L 11/08/18 21:51 PT/INR, D-dimer PT 13.1 Seconds (9.4-12.1) H 11/08/18 20:43 - Impressions Impressions Chest X-Ray 11/08/18 20:17 IMPRESSION: Increased left lung opacity likely infection. Underlying malignancy should be excluded. D/ / 11/08/2018 21:27:41 [facility] Interpreting Provider: Bernardino Hanley MD Consult Discharge Plan - Plan Referrals: Willem Le DO [Primary Care Provider] - (1) GERD (gastroesophageal reflux disease) Qualifiers: Esophagitis presence: without esophagitis Qualified Code(s): K21.9 - Gastro- esophageal reflux disease without esophagitis (2) Pneumonia Qualifiers: Pneumonia type: due to unspecified organism Laterality: unspecified lat erality Lung location: unspecified part of lung Qualified Code(s): J18.9 - Pneumonia, unspecified organism (6) Acute respiratory failure Qualifiers: Respiratory failure complication: unspecified whether with hypoxia or hypercapnia Qualified Code(s): J96.00 - Acute respiratory failure, unspecified whether with hypoxia or hypercapnia (8) Sepsis Qualifiers: Sepsis type: sepsis due to unspecified organism Qualified Code(s): A41.9 - Se psis, unspecified organism (9) Acute renal failure Qualifiers: Acute renal failure type: unspecified Qualified Code(s): N17.9 - Acute kidney failure, unspecified (10) Leukocytosis Qualifiers: Leukocytosis type: unspecified Qualified Code(s): D72.829 - Elevated white blood cell count, unspecified
[2018-11-09 10:48] LABS: Uric Acid 11.8 mg/dL (2.3-7.6)
--- NOTE | 2018-11-09 10:58 | Electrocardiograph Report ---
[address] [address] Test Date: 2018-11-08 Pat Name: Fritz Ramirez Department: [id number] Room: 2A Gender: M Rate Supervisor: : 1940 Requested By: Maldonado Dunaway Order Number: [id number] Reading MD: Jone Means Measurements Intervals [place] Rate: 90 P: NE: QRS: -48 QRSD: 114 T: 116 QT: 343 QTc: 420 Interpretive Statements Probable sinus rhythm Diffuse artifact LAD Late R wave progression Electronically Signed On 11-09-2018 10:56:17 EDT by Jone Means
--- NOTE | 2018-11-09 11:15 | Palliative - Consult Note ---
<Chyna Olverabelrin Mcfarland - Last Filed: 11/09/18 14:49> Date of Encounter: 11/09/18 Time of Encounter: 11:13 - Assessment and Plan (1) Goals of care, counseling/discussion Current Visit: Yes Status: Acute Assessment and plan: Spoke with patient and his son-in-law at bedside, and later on with the pt's granddaughter as well. Pt is aware of his poor prognosis with metastatic lung cancer. Discussed CODE STATUS because there were some reports that patient wanted chest compressions. Recommended he continue with the DNR-CC as set up during his oncology visit earlier this month. Pt agreed to this and remains DNR- CC. We did speak to the patient regarding the hospice care he was provided at home. At this time he is agreeable to the visiting his home again. Will have hospice nurse speak with pt and his family tomorrow morning. Pt does not want to make any further decision about hospice at this time. Will discuss again in the morning. Pt does wish to be treated for pneumonia at this time. (2) Palliative care encounter Current Visit: Yes Status: Acute (3) Pneumonia Current Visit: Yes Status: Acute Assessment and plan: On Zosyn Management per primary Qualifiers: Pneumonia type: due to unspecified organism Laterality: unspecified laterality Lung location: unspecified part of lung Qualified Code(s): J18.9 - Pneumonia, unspecified organism (4) Metastatic cancer Current Visit: Yes Status: Acute (5) Small cell lung cancer Current Visit: Yes Status: Chronic Palliative-CN HPI - Data of Consult Consult date: 11/09/18 Requesting Physician: Eufemia Toure Primary Care Provider: Willem Le - Consult Narrative Palliative Care/Comfort Measures: Hospice care History of present illness: Mr. Ramirez is a 78 year old male with metastatic small cell lung cancer, COPD, and GERD. He was admitted on 11/08/18 for pneumonia and sepsis. Reports a progressive worsening in shortness of breath and increase in sputum production over the past few days. Denies any fever or chills. He was found to be hypotensive at 88/61 in the ER, with tachypnea. He was afebrile and HR was borderline tachycardic at 90. Workup in ED also revealed leukocytosis of 25.1, and CXR which showed increased opacity in the left lung suggestive of infection. Palliative team was consulted for further goals of care discussion, code status discussion, and need for hospice. Pt seen and examined at bedside. Pt is resting comfortably in bed. His son-in-law is at bedside. The son-in-law reports the patient's daughter Lucy has severe anxiety which does not allow her to work or leave the house. He provided her phone number and reports she is available to speak at any time. Pt states he wishes to have his daughter included in medical decision making. He reports he was evaluated by home hospice as referred by Dr Leblanc, however pt re fused subsequent hospice visits. Son-in-law reports hospice has been calling to check on patient still. Pt reports continues to feel very weak, and has little to no appetite. Reports some pain related to subcutaneous mets, however states the pain is controlled adequately with medication. CC: Eufemia Toure - Time Spent with Patient Time: Total time spent is greater than 50% in coordination of care (as documented) at patient's floor/unit and/or counseling patient: Past Med Surg Social Fam HX - Past Medical History Medical history: cancer, COPD Additional medical history: lung cancer Psychiatric history: no psych history - Past Surgical History Additional surgical history: right inguinal hernia. left inguinal hernia - Social History Smoking Status: Former smoker Smokeless Tobacco Status: No Alcohol use: none Drug use: none - Family History Mother Living Status: Hx Family Respiratory Disorders: Yes (asthma) Father Living Status: Hx Family Cardiac Disorders: Yes (mother) Hx Family Respiratory Disorders: Yes (mother asthma) Hx Family Cancer: Yes (father) Hx Family GI Disorders: No Hx Family Endocrine Disorder: No Hx Family Neuromuscular Disorders: No Hx Family Neurologic Disorders: No Hx Family HEENT Disorders: No Hx Family Autoimmune Disorders: No Medications and Allergies Pantoprazole Sodium 40 mg PO DAILY 07/07/17 [History] Docusate [Colace] 200 mg PO BID #120 capsule 07/16/17 [Rx] Aspirin Enteric Coated [Aspirin EC] 81 mg PO DAILY #30 tablet. 07/20/17 [Rx] Promethazine [Phenergan] 25 mg PO Q6HR PRN #30 tablet 07/22/17 [Rx] Nitroglycerin [Nitrostat] 0.4 mg SL Q1H PRN #30 tab.subl 08/14/17 [Rx] Mirtazapine [Remeron] 15 mg PO HS #30 tablet 01/19/18 [Rx] Metoprolol [Lopressor] 25 mg PO BID #60 tablet 01/27/18 [Rx] Albuterol Sulfate [Proair Hfa] 1 puff IH QID PRN 04/29/18 [History] OxyCODONE Immed Rel [Roxicodone 5 MG] 10 mg PO Q4H PRN 30 Days #90 tablet 10/27/18 [Rx] Meloxicam 7.5 mg PO DAILY 11/09/18 [History] Tamsulosin [Flomax] 0.4 mg PO DAILY 11/09/18 [History] Allergy/AdvReac Type Severity Reaction Status Date / Time No Known Allergies Allergy Verified 10/27/18 09:25 All systems: reviewed and no additional remarkable complaints except as stated - Constitutional Constitutional ROS PAL: decreased appetite, fatigue, weight loss - Respiratory Respiratory: dyspnea, chest congestion, excessive phlegm production, no hemoptysis, no wheezing Palliative Care-Exam - Constitutional Vitals: Temp Pulse Resp BP Pulse Ox 97.6 F 90 18 113/77 92 11/09/18 11:11 11/09/18 11:11 11/09/18 11:11 11/09/18 11:11 11/09/18 11:11 General appearance: Present: average body habitus, cooperative - Head Head Exam: Present: atraumatic, normal inspection, normocephalic - Eye Eye exam: Present: EOMI, normal appearance, PERRL - ENT ENT exam: Present: mucous membranes dry - Respiratory Respiratory exam: Present: accessory muscle use, decreased breath sounds, rales. Absent: stridor, wheezes - Expanded Respiratory Exam Location: rales: Left, Right, Upper, Lower - Cardiovascular Cardiovascular exam: Present: RRR, +S1, +S2 - GI/Abdominal Exam GI/Abdominal exam: Present: mass, soft, tenderness. Absent: rebound additional comments: tender in upper quadrants bilaterally. tenderness of focal around areas of known metastases including a subcutaneous mass on the left side. when palpating the right lower ribs pt reported tenderness and said "I know there are mets too" - Extremities Exam Extremities exam: Present: normal inspection. Absent: calf tenderness, pedal edema, tenderness - Neurological Exam Neurological exam: Present: alert, oriented X3. Absent: facial droop - Expanded Neurological Exam Coma Scale Eye Opening: Spontaneous Coma Scale Motor Response: Obeys Commands Coma Scale Verbal Response: Oriented Coma Scale Total: 15 - Skin Skin exam: Present: dry, intact, warm Internal Medicine - CN: Reslt - Labs CBC & Chem 7: 11/09/18 02:16 11/09/18 02:16 Labs: Short CBC 11/08/18 11/09/18 Range/Units 20:43 02:16 WBC 25.1 H 18.4 H (4.3-11.1) K/mcL Hgb 13.1 12.4 L (12.9-16.9) g/dL Hct 39.5 37.1 L (37.5-50.1) % Plt Count 194 176 (140-400) K/mcL Neutrophils # 22.1 H (1.6-8.9) K/mcL BMP 11/08/18 11/09/18 20:43 02:16 Sodium 128 L 129 L Potassium 6.0 H 5.3 H Chloride 90 L 93 L Carbon Dioxide 22 L 19 L BUN 69 H 67 H Creatinine 4.38 H 4.04 H Glucose 64 L 59 L Calcium 8.6 8.6 Cardiac Enzymes 11/08/18 11/09/18 11/09/18 Range/Units 20:43 00:12 04:23 Troponin I 0.19 H* 0.16 H* 0.12 H* (< 0.04) ng/mL Liver Function 11/08/18 11/09/18 Range/Units 20:43 02:16 Total Bilirubin 0.7 0.8 (0.3-1.0) mg/dL Direct Bilirubin 0.4 H (0.0-0.2) mg/dL AST 85 H 70 H (13-39) Units/L ALT 45 40 (7-52) Units/L Alkaline Phosphatase 139 H 135 H (34-104) Units/L Albumin 3.4 L 3.4 L (3.5-5.7) g/dL - ABG Interpretation ABG results: ABG ABG pH 7.43 pH Units (7.32-7.45) 11/08/18 21:51 ABG pCO2 24 mmHg (35-45) L 11/08/18 21:51 ABG pO2 61 mmHg (85-104) L 11/08/18 21:51 ABG O2 Saturation 93 % (95-98) L 11/08/18 21:51 PT/INR, D-dimer PT 13.1 Seconds (9.4-12.1) H 11/08/18 20:43 - Impressions Impressions Chest X-Ray 11/08/18 20:17 IMPRESSION: Increased left lung opacity likely infection. Underlying malignancy should be excluded. D/ / 11/08/2018 21:27:41 Bernardino Hanley MD / [facility] Interpreting Provider: Bernardino Hanley MD Consult Discharge Plan - Plan Referrals: Willem Le DO [Primary Care Provider] - Palliative Quality Palliative Quality: Screen for Code Status: Yes, Screen for Goals of Care: Yes, Screen for Pain: Yes, If Pain Regimen Started, Initiate Bowel Regimen: NA, Screen for Nausea/Vomitting: Yes Code Status: 11/09/18 00:32 CODE [Resuscitation Status: Active] [RES] Routine Comment: Resuscitation Status: DNR-Comfort Care-Arrest 11/09/18 01:04 CODE [Resuscitation Status: Active] [RES] Routine Comment: Resuscitation Status: Full Code 11/09/18 01:09 CODE [Resuscitation Status: Active] [RES] Routine Comment: Resuscitation Status: DNR-Comfort Care Palliative Scale - Palliative Performance Scale How ambulatory is this patient?: Reduced What is patient's level of activity and evidence of disease?: Unable to do any work, Extensive disease How much self-care assistance does patient require?: Considerable assistance required How much oral intake does the patient have?: Normal or reduced What is this patient's level of consciousness?: Full Palliative Performance Score: 50 % <Ilene Gross - Last Filed: 11/09/18 22:01> Date of Encounter: 11/09/18 Palliative-CN HPI - Data of Consult Requesting Physician: Eufemia Toure Primary Care Provider: Willem Le - Consult Narrative Palliative Care/Comfort Measures: Palliative care Reason for consult: hospice evaluation History of present illness: Mr. Ramirez is a 78 year old male CC: Eufemia Toure - Time Spent with Patient Time: Total time spent is greater than 50% in coordination of care (as documented) at patient's floor/unit and/or counseling patient: Time with patient: 75 minutes Palliative Care-Exam - Constitutional Vitals: Temp Pulse Resp BP Pulse Ox 97.6 F 90 18 113/77 92 11/09/18 11:11 11/09/18 11:11 11/09/18 11:11 11/09/18 11:11 11/09/18 11:11 Internal Medicine - CN: Reslt - Labs CBC & Chem 7: 11/09/18 02:16 11/09/18 02:16 Labs: Short CBC 11/08/18 11/09/18 Range/Units 20:43 02:16 WBC 25.1 H 18.4 H (4.3-11.1) K/mcL Hgb 13.1 12.4 L (12.9-16.9) g/dL Hct 39.5 37.1 L (37.5-50.1) % Plt Count 194 176 (140-400) K/mcL Neutrophils # 22.1 H (1.6-8.9) K/mcL BMP 11/08/18 11/09/18 20:43 02:16 Sodium 128 L 129 L Potassium 6.0 H 5.3 H Chloride 90 L 93 L Carbon Dioxide 22 L 19 L BUN 69 H 67 H Creatinine 4.38 H 4.04 H Glucose 64 L 59 L Calcium 8.6 8.6 Cardiac Enzymes 11/08/18 11/09/18 11/09/18 Range/Units 20:43 00:12 04:23 Troponin I 0.19 H* 0.16 H* 0.12 H* (< 0.04) ng/mL Liver Function 11/08/18 11/09/18 Range/Units 20:43 02:16 Total Bilirubin 0.7 0.8 (0.3-1.0) mg/dL Direct Bilirubin 0.4 H (0.0-0.2) mg/dL AST 85 H 70 H (13-39) Units/L ALT 45 40 (7-52) Units/L Alkaline Phosphatase 139 H 135 H (34-104) Units/L Albumin 3.4 L 3.4 L (3.5-5.7) g/dL - ABG Interpretation ABG results: ABG ABG pH 7.43 pH Units (7.32-7.45) 11/08/18 21:51 ABG pCO2 24 mmHg (35-45) L 11/08/18 21:51 ABG pO2 61 mmHg (85-104) L 11/08/18 21:51 ABG O2 Saturation 93 % (95-98) L 11/08/18 21:51 PT/INR, D-dimer PT 13.1 Seconds (9.4-12.1) H 11/08/18 20:43 - Impressions Impressions Chest X-Ray 11/08/18 20:17 IMPRESSION: Increased left lung opacity likely infection. Underlying malignancy should be excluded. D/ / 11/08/2018 21:27:41 Bernardino Hanley MD / [facility] Interpreting Provider: Bernardino Hanley MD - Attending Attestation I personnaly performed history and examined the patient along with resident Dr. Olvera. My clinical decision making was reviewed with resident, I agree with findings and plan as documented in resident's not except to the extent that follow: Mr. Ramirez is a 78 year old male with metastatic small cell lung cancer, COPD, and GERD. He presented with SOB and was admitted on 11/08/18 for pneumonia and sepsis. Patient was followed by dr. Obrien at the cancer center, on his latest follow up on 10/27/18, disease showed jarrett progression, and he was referred to hospice by oncology, DNRCC was signed at the time. At the time of current admission, patient was not consistent in his wishes regarding CPR and intubat ion. Palliative care consult to clarify GOC and hospice evaluation. At the time of exam, patient was AAOx3, tachypneic, using accessory muscles and gurgling sound in upper airways. However he stated his SOB is better than before. He has ongoing pain from subcutaneous metastasis. He has hoarseness to a point that his voice is a whisper. Patient is still able to participate in decision making. Patient up to few days ago was still ambulatory with help and able to help with his ADLs. Son-in-law present at the bedside, states that patient's daughter Lucy is the surrogate decision maker. Patient was referred to hospice, but then refused hospice when they presented at home as he still wanted a chance to be treated in case of need. Called Lucy to discuss goals of care and planning, discussed current medical condition, trajectory of illness and overall poor prognosis. Lucy states s he has anxiety that prevents her from living her house, and she does not feel comfortable making decisions from a distance. She deferred to her daughter, patient's grand-daughter to help in decision making. She stated that patient's wish will be to at home if possible. 1300: Met with patient and grand-daughter Audelia. She agreed to be the surrogate decision maker, however patient is still capable of maing his own choice. Rediscussed hospice, as the best service to allo patient to improve his quality of life. Patient is open to discuss further. Will refer patient to [facility] nurse Ivette as she returns tomorrow. Palliative Quality Code Status: 11/09/18 00:32 CODE [Resuscitation Status: Active] [RES] Routine Comment: Resuscitation Status: DNR-Comfort Care-Arrest 11/09/18 01:04 CODE [Resuscitation Status: Active] [RES] Routine Comment: Resuscitation Status: Full Code 11/09/18 01:09 CODE [Resuscitation Status: Active] [RES] Routine Comment: Resuscitation Status: DNR-Comfort Care
[2018-11-09] MEDS ORDERED: Perflutren Lipid Microsphere 1.3 ML in 0.9 % Sodium Chloride 8.7 ML IVP ONE (11:52)
[2018-11-09] MEDS ORDERED: Perflutren Lipid Microsphere 2 ML VIAL ONE (11:53)
--- NOTE | 2018-11-09 12:34 | Discharge Summary ---
Orders not resulted at time of discharge: Pending orders 11/08/18 21:03 Culture,Blood [BC] Stat 11/09/18 00:29 Culture,Sputum with Gram Stain [RM] Routine 11/09/18 09:40 Eosinophil,Urine [URIN] Stat Urinalysis Reflex Cult & Micro [URIN] Stat Urine Protein Creat Ratio [place] [UCHEM] Stat 11/09/18 11:47 Troponin I Q6H 11/09/18 16:00 US retroperitoneal comp [US] Routine Date of Encounter: 11/09/18 - Discharge Diagnosis (1) Small cell lung cancer Status: Acute (2) Pneumonia Status: Acute Qualifiers: Pneumonia type: due to unspecified organism Laterality: unspecified l aterality Lung location: unspecified part of lung Qualified Code(s): J18.9 - Pneumonia, unspecified organism (3) Metastatic cancer Status: Acute (4) Goals of care, counseling/discussion Status: Acute (5) Palliative care encounter Status: Acute Hospital course: Mr. Ramirez is a 78 year old male - Time Spent with Patient Total time spent providing and/or coordinating discharge services: - Discharge Medications Prescriptions: No Action Pantoprazole Sodium 40 mg PO DAILY Docusate [Colace] 200 mg PO BID #120 capsule Aspirin Enteric Coated [Aspirin EC] 81 mg PO DAILY #30 tablet. Promethazine [Phenergan] 25 mg PO Q6HR PRN #30 tablet PRN Reason: Nausea Nitroglycerin [Nitrostat] 0.4 mg SL Q1H PRN #30 tab.subl PRN Reason: Pain Mirtazapine [Remeron] 15 mg PO HS #30 tablet Metoprolol [Lopressor] 25 mg PO BID #60 tablet Albuterol Sulfate [Proair Hfa] 1 puff IH QID PRN PRN Reason: Dyspnea OxyCODONE Immed Rel [Roxicodone 5 MG] 10 mg PO Q4H PRN 30 Days #90 tablet PRN Reason: Pain Home Medications: Pantoprazole Sodium 40 mg PO DAILY 07/07/17 [History] Docusate [Colace] 200 mg PO BID #120 capsule 07/16/17 [Rx] Aspirin Enteric Coated [Aspirin EC] 81 mg PO DAILY #30 tablet. 07/20/17 [Rx] Promethazine [Phenergan] 25 mg PO Q6HR PRN #30 tablet 07/22/17 [Rx] Nitroglycerin [Nitrostat] 0.4 mg SL Q1H PRN #30 tab.subl 08/14/17 [Rx] Mirtazapine [Remeron] 15 mg PO HS #30 tablet 01/19/18 [Rx] Metoprolol [Lopressor] 25 mg PO BID #60 tablet 01/27/18 [Rx] Albuterol Sulfate [Proair Hfa] 1 puff IH QID PRN 04/29/18 [History] OxyCODONE Immed Rel [Roxicodone 5 MG] 10 mg PO Q4H PRN 30 Days #90 tablet 10/27/18 [Rx] Allergies/Adverse Reactions: Allergy/AdvReac Type Severity Reaction Status Date / Time No Known Allergies Allergy Verified 10/27/18 09:25 Date of admission: 11/09/18 01:29 Primary care physician: Willem Le Consults: 11/09/18 00:32 Consult to Palliative Care [CONS] Routine Comment: Consulting Provider: [facility] [place] Reason for Consult: widespread mets, goals of care, POA assignment Call Completed: No 11/09/18 00:33 Consult to Nephrology [CONS] Routine Consulting Provider: [facility] [place]/FLEX/PETER/DARY Reason for Consult: acute renal failure, widespread metasiasis Call Completed: No - Constitutional Vitals: Temp Pulse Resp BP Pulse Ox 97.6 F 90 18 113/77 92 11/09/18 11:11 11/09/18 11:11 11/09/18 11:11 11/09/18 11:11 11/09/18 11:11 General appearance: Present: disheveled, A&O X 3, severe distress - Patient Status Condition: Fair - Discharge Instructions Follow Up With: Willem Le DO [Primary Care Provider] - Forms: ED Satisfaction Letter
--- NOTE | 2018-11-09 13:34 | Internal Med Progress Note ---
<Bernardino Escobar - Last Filed: 11/09/18 13:54> Hospitalist Progress Note - Encounter Date of Encounter: 11/09/18 Time of Encounter: 09:22 - Subjective Interval History: Patient seen and examined up at since morning. He is very difficult to understand but is able to answer questions. He denies symptoms of fevers, chills, chest pain, swelling. He thinks his breathing might be a little bit better. He does have a cough but is unable to produce sputum. Son-in-law is present at bedside. - Exam Vitals: Temp Pulse Resp BP Pulse Ox 97.6 F 90 18 113/77 92 11/09/18 11:11 11/09/18 11:11 11/09/18 11:11 11/09/18 11:11 11/09/18 11:11 Exam: Gen.: Vitals noted. No acute distress. AAOx2, resting comfortably in bed. Audible respiratory rattle, frail-appearing HEENT: PERRL/EOMI, oropharynx clear, Normocephalic, atraumatic, MMM Cardiac: RRR, no murmur, +S1/S2, No BLE edema Pulmonary: Diffuse rhonchi present, equal chest expansion, unlabored breathing, tachypnea Abdomen: soft, nontender, BS noted, no guarding, no palpable HSM, palpable mass Skin: warm and dry, no visible lesions. MSK: ROM intact, no joint swelling noted, gait no assessed while in bed. Non tender calf or clubbing Neuro: A&Ox2, moves all extremities, no focal deficits, Psych: Appropriate mood and behavior, AOx2 - Assessment and Plan (1) Severe sepsis Current Visit: Yes Status: Acute Assessment and Plan: - Evidence on presentation with 3/4 SIRS criteria: respiratory rate in the 40s, and leukocytosis at 25, tachycardia 90 - Initially blood pressures were soft upon admission but this has resolved - Tachypnea and tachycardia and leukocytosis have improved but still meeting criteria - Lactic acid initially as high as 2.8, down trended to 1.3 - Suspected source: Pneumonia with some suspicion for aspiration - Suspected organism: Unclear - Patient did receive fluids as well as vancomycin, Zosyn, Levaquin therapy - Leukocytosis initially 25 which is improved to 18 with fluids - Pro-calcitonin greater than 100 - Blood cultures obtained 2 and pending - Urinalysis ordered and pending - Sputum culture ordered and pending - Strep and Legionella negative - No previous cultures - Chest x-ray on admission shows increased left lung opacity which is likely infection but underlying malignancy should be excluded - Given patient's history of metastatic lung cancer, postobstructive pattern would not be unreasonable. Most recent CT of the chest and abdomen in September and October 2018 Plan - MRSA swab negative, we will discontinue vancomycin - Continue Zosyn, Levaquin, day #1 - Continue Solu-Medrol 40 mg twice a day, day #1 of steroids - Continue fluids at 125 mL per hour given kidney function - Palliative care has been consult, patient is interested in hospice care. We will continue aggressive antibiotic care until that time. - Continue to monitor cultures (2) Small cell lung cancer Current Visit: Yes Status: Chronic Assessment and Plan: - Patient has known small cell lung cancer with diffuse metastasis to retroperitoneum, peritoneum, ventral abdominal soft tissues - As noted on CT scan on 10/20/18, there is a short interval increase in metastatic disease since previous scan on 10/16/18, this would indicate an aggressive disease - Patient's pain is adequately controlled at this time - Palliative care has been consulted, appreciate recommendations - Advised supportive care. Palliative care as prescribed Gasper for secretions management - There have been discussions about patient's CODE STATUS, this was confirmed with son-in-law at bedside, patient is DNR comfort care (3) Pneumonia Current Visit: Yes Status: Acute Assessment and Plan: See above for sepsis. (4) Metastatic cancer Current Visit: Yes Status: Acute Assessment and Plan: Evidenced on imaging. CT soft tissue of neck: - left apical mass (Pancoast tumor) extends to pleural and paraspinal tissues. 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 Brain MRI negative for metastasis. CT abd/pelvis: - Short interval increase in size of abdominopelvic metastatic disease since 10/16/2018 suggests aggressive disease. - Metastatic implants involve the retroperitoneum, peritoneum and ventral abdominal soft tissues. - A periaortic metastasis splays the celiac and superior mesenteric arteries with blurring of the intervening fat planes. - Cannot exclude vascular invasion CT chest: New massive infiltrative mass in the mediastinum-left hilar region extending into the left upper lobe, compatible with bronchogenic carcinoma. The mass encases the mediastinal vasculature. New metastatic mass left axillary region. New retroperitoneal metastasis, increased size of left adrenal metastasis, and new metastatic mass posterior to the right kidney Patchy sclerosis in the vertebral bodies, likely metastatic (5) High anion gap metabolic acidosis Current Visit: Yes Status: Acute Assessment and Plan: - Anion gap 17 this morning - Suspect that this is multifactorial including lactic acidosis, acute renal failure - Lactic acid has down trended with fluids and is currently within normal limits - Kidney function is improving with fluids, nephrology is following - We will continue to treat underlying etiologies and monitor (6) Tobacco use Current Visit: Yes Status: Chronic Assessment and Plan: smokes 1ppd, chronic, counseled. (7) Acute kidney injury Current Visit: Yes Status: Acute Assessment and Plan: - Acute renal failure with BUNs/creatinine of 69/4.38 upon admission - Has mildly improved to 67/4.04 this morning - I suspect that etiology is likely multifactorial. Suspect poor by mouth intake causing prerenal etiology as well as known metastasis to kidneys. - FENa calculated at 8.9% this morning indicating a post renal etiology - Patient denies symptoms - Associated hyperkalemia as below - Noted urine output of 1350 today - Nephrology is following, appreciate recommendations. Per document review, suspect prerenal is more prominent - Retroperitoneal ultrasound is pending Plan - Continue fluid hydration with 125 mL per hour normal saline - Defer to nephrology recommendations - Continue to monitor potassium - Consider bladder scan have poor urine output to rule out metastatic obstruction versus BPH (8) NSTEMI (non-ST elevated myocardial infarction) Current Visit: Yes Status: Suspected Assessment and Plan: Troponin on admission 0.19, trended to 0.12, 0.08 EKG showing no acute ST elevation, old Q waves in anterior and inferior leads. Patient did report chest pain on admission but is denying any now Suspect this is secondary to pneumonia, RACHELL and is a type II demand ischemia Plan: - ECHO pending -We will continue to monitor this time (9) Hyperkalemia Current Visit: Yes Status: Acute Assessment and Plan: Potassium 6.0 on admission. Given calcium glucuronate, insulin/dextrose, duonebs. Has improved to 5.3 this morning Likely secondary to kidney failure Renal function improving, EKG shows no evidence of T-wave changes Nephrology is following We will continue monitor (10) Hyponatremia Current Visit: Yes Status: Acute Assessment and Plan: Sodium 128 on admission. Now 129 Etiology may be multifactorial including low by mouth intake, SIADH from known lung cancer Appears euvolemic Urine studies ordered Patient receiving fluids for sepsis and RACHELL as above We will continue monitor (11) DVT prophylaxis Current Visit: Yes Status: Acute Assessment and Plan: heparin sq - Time Spent with Patient Total time spent is greater than 50% in coordination of care (as documented) at patient's floor/unit and/or counseling patient: Internal Medicine: Result - Labs CBC & Chem 7: 11/09/18 02:16 11/09/18 02:16 Labs: Short CBC 11/08/18 11/09/18 Range/Units 20:43 02:16 WBC 25.1 H 18.4 H (4.3-11.1) K/mcL Hgb 13.1 12.4 L (12.9-16.9) g/dL Hct 39.5 37.1 L (37.5-50.1) % Plt Count 194 176 (140-400) K/mcL Neutrophils # 22.1 H (1.6-8.9) K/mcL BMP 11/08/18 11/09/18 20:43 02:16 Sodium 128 L 129 L Potassium 6.0 H 5.3 H Chloride 90 L 93 L Carbon Dioxide 22 L 19 L BUN 69 H 67 H Creatinine 4.38 H 4.04 H Glucose 64 L 59 L Calcium 8.6 8.6 Cardiac Enzymes 11/08/18 11/09/18 11/09/18 Range/Units 20:43 00:12 04:23 Troponin I 0.19 H* 0.16 H* 0.12 H* (< 0.04) ng/mL 11/09/18 Range/Units 12:42 Troponin I 0.08 H* (< 0.04) ng/mL Liver Function 11/08/18 11/09/18 Range/Units 20:43 02:16 Total Bilirubin 0.7 0.8 (0.3-1.0) mg/dL Direct Bilirubin 0.4 H (0.0-0.2) mg/dL AST 85 H 70 H (13-39) Units/L ALT 45 40 (7-52) Units/L Alkaline Phosphatase 139 H 135 H (34-104) Units/L Albumin 3.4 L 3.4 L (3.5-5.7) g/dL - ABG Interpretation ABG results: ABG ABG pH 7.43 pH Units (7.32-7.45) 11/08/18 21:51 ABG pCO2 24 mmHg (35-45) L 11/08/18 21:51 ABG pO2 61 mmHg (85-104) L 11/08/18 21:51 ABG O2 Saturation 93 % (95-98) L 11/08/18 21:51 PT/INR, D-dimer PT 13.1 Seconds (9.4-12.1) H 11/08/18 20:43 - Impressions Impressions Chest X-Ray 11/08/18 20:17 IMPRESSION: Increased left lung opacity likely infection. Underlying malignancy should be excluded. D/ / 11/08/2018 21:27:41 Bernardino Hanley MD / [facility] Interpreting Provider: Bernardino Hanley MD Consult Discharge Plan - Plan Referrals: Willem Le DO [Primary Care Provider] - <Eufemia Toure - Last Filed: 11/09/18 20:20> Hospitalist Progress Note - Encounter Date of Encounter: 11/09/18 - Exam Vitals: Temp Pulse Resp BP Pulse Ox 97.7 F 89 20 104/66 90 11/09/18 19:39 11/09/18 19:39 11/09/18 20:05 11/09/18 19:39 11/09/18 20:05 - Assessment and Plan (1) Small cell lung cancer Current Visit: Yes Status: Chronic (2) Pneumonia Current Visit: Yes Status: Acute (3) Metastatic cancer Current Visit: Yes Status: Acute (4) Goals of care, counseling/discussion Current Visit: Yes Status: Acute (5) Palliative care encounter Current Visit: Yes Status: Acute - Time Spent with Patient Total time spent is greater than 50% in coordination of care (as documented) at patient's floor/unit and/or counseling patient: Internal Medicine: Result - Labs CBC & Chem 7: 11/09/18 02:16 11/09/18 02:16 Labs: Short CBC 11/08/18 11/09/18 Range/Units 20:43 02:16 WBC 25.1 H 18.4 H (4.3-11.1) K/mcL Hgb 13.1 12.4 L (12.9-16.9) g/dL Hct 39.5 37.1 L (37.5-50.1) % Plt Count 194 176 (140-400) K/mcL Neutrophils # 22.1 H (1.6-8.9) K/mcL BMP 11/08/18 11/09/18 20:43 02:16 Sodium 128 L 129 L Potassium 6.0 H 5.3 H Chloride 90 L 93 L Carbon Dioxide 22 L 19 L BUN 69 H 67 H Creatinine 4.38 H 4.04 H Glucose 64 L 59 L Calcium 8.6 8.6 Cardiac Enzymes 11/08/18 11/09/18 11/09/18 Range/Units 20:43 00:12 04:23 Troponin I 0.19 H* 0.16 H* 0.12 H* (< 0.04) ng/mL 11/09/18 Range/Units 12:42 Troponin I 0.08 H* (< 0.04) ng/mL Liver Function 11/08/18 11/09/18 Range/Units 20:43 02:16 Total Bilirubin 0.7 0.8 (0.3-1.0) mg/dL Direct Bilirubin 0.4 H (0.0-0.2) mg/dL AST 85 H 70 H (13-39) Units/L ALT 45 40 (7-52) Units/L Alkaline Phosphatase 139 H 135 H (34-104) Units/L Albumin 3.4 L 3.4 L (3.5-5.7) g/dL Urine 11/09/18 Range/Units 14:50 Urine Color Dark Yellow (Yellow) Urine Clarity Turbid A (Clear) Urine pH 5.5 (5.0-8.0) pH Units Ur Specific [place] 1.019 (1.010-1.025) Urine Protein 100 H (Neg-Trace) mg/dL Urine Glucose (UA) Normal (Normal) mg/dL - ABG Interpretation ABG results: ABG ABG pH 7.43 pH Units (7.32-7.45) 11/08/18 21:51 ABG pCO2 24 mmHg (35-45) L 11/08/18 21:51 ABG pO2 61 mmHg (85-104) L 11/08/18 21:51 ABG O2 Saturation 93 % (95-98) L 11/08/18 21:51 PT/INR, D-dimer PT 13.1 Seconds (9.4-12.1) H 11/08/18 20:43 - Impressions Impressions Chest X-Ray 11/08/18 20:17 IMPRESSION: Increased left lung opacity likely infection. Underlying malignancy should be excluded. D/ / 11/08/2018 21:27:41 Bernardino Hanley MD / [facility] Interpreting Provider: Bernardino Hanley MD Retroperitoneum Ultrasound 11/09/18 16:00 IMPRESSION: 1. Echogenic left kidney which may be related to medical renal disease. 2. Duran catheter within the bladder. D/ / Tasha Marti MD / Tasha Marti MD Interpreting Provider: Tasha Marti MD Echocardiogram 11/09/18 23:48 Impressions: LVEF 60%. Mild left ventricular diastolic dysfunction. The right ventricle was not well visualized but appeared grossly normal in size and function Unable to estimate RVSP due to lack of TR jet. No obvious significant valvular dysfunction. Left Ventricular Wall Motion: Rest Echo Findings All wall segments showed normal motion. Findings: Study Quality * Technically sub-optimal due to poor echocardiographic windows. ECG Findings * Normal sinus rhythm. Left Ventricle * LVEF 60%. * Atypical septal motion noted. * Mild left ventricular diastolic dysfunction. * Definity echo contrast was used. Right Ventricle * The right ventricle was not well visualized but appeared grossly normal in size and function Left Atrium * Normal left atrial size. Right Atrium * Normal right atrial size. Interatrial Septum * Interatrial septum not well evaluated. Aortic Valve * Aortic valve not well visualized. * No aortic regurgitation. * No aortic stenosis. Mitral Valve * Trace mitral regurgitation. * No mitral stenosis. * Mitral valve not well visualized. Tricuspid Valve * Trace tricuspid regurgitation. * Unable to estimate RVSP due to lack of TR jet. * No tricuspid stenosis. * Tricuspid valve not well visualized. Pulmonic Valve * Pulmonic valve is not well visualized. Aorta * Normally sized aortic root. Pericardium * The pericardium appears normal. IVC * The IVC is dilated. Pulmonary Artery * Pulmonary artery not well visualized. - Attending Attestation I examined this patient and my medical decision-making was reviewed with the Resident Physician Dr Escobar. I agree with the documented findings, disposition and treatment plan as described except to the extent set forth below. Mr Ramirez ahs pmhx copd, tobacco use, metastatic lung cancer He is admitted with acute on chronic resp failure, sepsis with pna and bacteremia His oncologist discussed with him and pt code status DNR CC recently. asleep, son in law at bedside, asked to permit him to rest. POA is his daughter who is avoiable by phone to talk to palliative. no further hpi or ros can be obtained from pt at this time gen- asleep, ,appears stated age cv- reg rate and rhythm, normal s1,s2, no murmurs appreciated, no le edema lungs- audible rhonchi and rattling without auscultation. rhonchi throughout, normal resp effort on o2 nc abd- soft, no apparent tender, noguard or grimace non distended, + bs neuro- asleep and did not wake per family request acute on chronic resp failure with hypoxia 2/2 likely post obstructive pna and progressive lung cancer -o2 support prn, tx as below pna, organism unknown - zosyn + levaquin as mrsa screen neg, IV steroids, nebs severe sepsis 2/2 pna and now + blcxs gnr s/p sepsis fluids -pna treatment as above -bl cxs speciation and sensitivity pending- cont zosyn + levaquin Acute renal failure- bl creat 1 and is 4- nephro following.s/p fluids, renal dose abx, renal us wa sheld due to pt not being alert enough to drink fluids hyperkalemia- temporized on admit and ca given, repeat down to 5.3, nephro following trop elevation suspect type II Mi in setting of sepsis as above- down trending- echo pending, tx as above acute on chronic Na likely dehydration + lung cancer- gentle IVFs ow and monitoring na level palliative care discussed with family- 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
[2018-11-09 15:11] LABS: Bilirubin,Urine Negative (Negative); Blood,Urine Large (Negative); Clarity,Urine Turbid (Clear); Color,Urine Dark Yellow (Yellow); Glucose,Urine (UA) Normal (Normal); Ketones,Urine Trace mg/dL (Negative); Leukocyte Esterase,Urine Moderate (Negative); Nitrite,Urine Negative (Negative); PH,Urine 5.5 pH Units (5.0-8.0); Protein,Urine 100 mg/dL (Neg-Trace); Specific Gravity,Urine 1.019 (1.010-1.025); Urobilinogen,Urine Normal (Normal)
[2018-11-09 15:12] LABS: Bacteria,Urine None Seen per hpf (None-Few); Hyaline Casts,Urine None Seen per lpf (None-Few); RBC,Urine TNTC per hpf (0-3); Squamous Epithelial Cell,Urine Many per lpf (None-Few); WBC,Urine TNTC per hpf (0-3)
[2018-11-09 15:15] LABS: Acinetobacter baumannii by PCR Not Detected (Not Detect); Candida albicans by PCR Not Detected (Not Detect); Candida glabrata by PCR Not Detected (Not Detect); Candida krusei by PCR Not Detected (Not Detect); Candida parapsilosis by PCR Not Detected (Not Detect); Candida tropicalis by PCR Not Detected (Not Detect); Enterobacter cloacae Cmplx PCR Not Detected (Not Detect); Enterobacteriaceae by PCR Not Detected (Not Detect); Enterococcus by PCR Not Detected (Not Detect); Escherichia coli by PCR Not Detected (Not Detect); Klebsiella oxytoca by PCR Not Detected (Not Detect); Klebsiella pneumoniae by PCR Not Detected (Not Detect); Proteus by PCR Not Detected (Not Detect); Pseudomonas aeruginosa by PCR Not Detected (Not Detect); Serratia marcescens by PCR Not Detected (Not Detect); Staphylococcus aureus by PCR Not Detected (Not Detect); Staphylococcus by PCR Not Detected (Not Detect); Streptococcus agalactiae(B)PCR Not Detected (Not Detect); Streptococcus by PCR Not Detected (Not Detect); Streptococcus pneumoniae PCR Not Detected (Not Detect); Streptococcus pyogenes (A) PCR Not Detected (Not Detect)
[2018-11-09 15:52] LABS: Protein/Creatinine Ratio,Urine 3.16 mg/mg (0.00-0.20)
[2018-11-09] MEDS ORDERED: Levofloxacin 500 MG/100 ML 500 MG/100 ML BAG IVPB SCH (20:00)
[2018-11-09] MEDS ORDERED: Mirtazapine 15 MG TABLET PO SCH (21:00)
[2018-11-10] MEDS: Ipratropium/Albuterol Neb 3 ML IH SCH ×3 (04:07→11:06)
[2018-11-10] MEDS: *HR* OxyCODONE Immed Rel 5 MG TABLET PO PRN (05:10)
[2018-11-10] MEDS ORDERED: *HR* LORazepam 2 MG/ML VIAL IVP ONE (05:23)
[2018-11-10] MEDS ORDERED: Levalbuterol Neb 1.25 MG/3 ML IH ONE (05:24)
[2018-11-10] MEDS: 0.9 % Sodium Chloride 1,000 ML IVC SCH (05:37)
[2018-11-10] MEDS ORDERED: MORPHINE SUL Oral CONC 10 MG/0.5 ML ORAL.SYG SL PRN ×2 (05:47→08:00)
[2018-11-10] MEDS ORDERED: Atropine 1% Opth Drops 100 DROP/5 ML BOTTLE SL PRN ×2 (05:48→09:00)
[2018-11-10] MEDS: *HR* Heparin 5,000 UNIT/ML VIAL SQ SCH (06:21)
[2018-11-10] MEDS: MethylPREDNISolone 40 MG/ML VIAL IVP SCH (06:21)
[2018-11-10] MEDS: Piperacillin/Tazobactam 3.375 GM in 0.9 % Sodium Chloride Mini Bag 100 ML IVPB SCH (06:21)
--- NOTE | 2018-11-10 06:29 | Event Note ---
Date of Encounter: 11/10/18 Time of Encounter: 05:25 Alerted by Juve Rosenberg that the pt. was in severe pain and was having increased secretions. Pt. had received Xopenex IH, Ativan, and Robinul prior to be alerted but pt. continued to be in pain and was extremely uncomfortable. According to notes, Palliative has seen the pt. and continues to check on him. Plan is for Palliative to see the pt. this morning. Due to recent dosing of medications, Oxycodone and Robinul DCd and replaced w/Roxanol with first dose to be given at 08:00 and Atropine SL drops with first dose at 09:00. In order to make the pt. as comfortable as possible in the meantime, suctioning ordered to help alleviate some of the increasing secretions until Atropine can be administered. Pts. son is present and stated that he has taken the day off of work to be with his father and will be present when Palliative comes to see the pt. During last discussion w/pt., he wished to be treated for his PNA. VS at this time: 97.6F temp, HR 96, RR 28, BP 99/76, SpO2 85% on 4L via NC. Patient is currently receiving Levaquin and Zosyn IVPB for infection coverage. IV fluids stopped for now d/t increased secretions. Will await Palliative Care follow-up and I appreciate the recommendations as always. Nurse instructed to suction pt. and alert Juve Rosenberg or myself of any adverse changes immediately.
[2018-11-10 07:08] LABS: Basophils % 0.2 %; Hematocrit 35.2 % (37.5-50.1); Hemoglobin 11.5 g/dL (12.9-16.9); Immature Granulocytes % 0.5 % (0-4); Lymphocytes # 0.3 K/mcL (0.6-4.6); Lymphocytes % 1.6 %; Mean Corpuscular HGB Conc 32.7 g/dL (31.6-35.5); Mean Corpuscular Hemoglobin 30.3 pg (28.0-33.3); Mean Corpuscular Volume 92.6 fL (83.0-100.0); Mean Platelet Volume 9.7 fL (9.4-12.4); Monocytes # 0.7 K/mcL (0.0-1.3); Monocytes % 3.9 %; Neutrophils # 16.4 K/mcL (1.6-8.9); Platelet Count 144 K/mcL (140-400); Red Cell Distribution Width 15.3 % (11.5-14.5); Segmented Neutrophils % 93.8 %
[2018-11-10 07:27] LABS: Calcium 8.1 mg/dL (8.6-10.3); Potassium 3.9 mEq/L (3.5-5.1)
[2018-11-10] MEDS: Aspirin Enteric Coated 81 MG Tablet PO SCH (09:47)
--- NOTE | 2018-11-10 11:10 | Palliative Progress Note ---
Date of Encounter: 11/10/18 Time of Encounter: 10:15 - Assessment and plan (1) Goals of care, counseling/discussion Current Visit: Yes Status: Acute Assessment and plan: Conducted 20 minute bedside meetings with son Fritz and patient. Patient slightly sleepy from pain medication but able to open eyes and answer questions with yes/no. Patient with metastatic lung cancer. Patient experiencing SOB with any long discussion or movement. POC reviewed and updated on patients current condition of metastatic disease. Discussed transitioning patient to comfort care and admitting to inpatient hospice care for symptom management of SOB, anxiety and pain. 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 Explained that patient has overall poor prognosis and focus will be placed on symptom management. Fritz and patient verbalized understanding and agree to plan. Called patients daughter and POA Vida and updated on patients POC. Discussed transition to GIP and she agrees to transition. Vida also updated Audelia patients granddaughter, who was present in the home room during the phone call. All family agrees to transition to comfort care. Dr. aLcy notified of plan to transition to comfort care. Patient is DNRCC - Comfort care. Bed management notified. - Time Spent With Patient Total time spent is greater than 50% in coordination of care (as documented) at patient's floor/unit and/or counseling patient: Greater than 35 minutes - Subjective Interval history: Patient with labored respirations. HOB up. Overall weakness. Opens eyes to name. Son Fritz at bedside. Conducted bedside meeting with son and patient. - Constitutional Vitals: Abnormal lab results WBC 17.5 K/mcL (4.3-11.1) H 11/10/18 06:24 RBC 3.80 M/mcL (4.19-5.50) L 11/10/18 06:24 Hgb 11.5 g/dL (12.9-16.9) L 11/10/18 06:24 Hct 35.2 % (37.5-50.1) L 11/10/18 06:24 RDW 15.3 % (11.5-14.5) H 11/10/18 06:24 MPV 9.3 fL (9.4-12.4) L 11/09/18 02:16 Immature Gran % 7.5 % (0-4) H 11/08/18 20:43 16.4 K/mcL (1.6-8.9) H 11/10/18 06:24 0.3 K/mcL (0.6-4.6) L 11/10/18 06:24 PT 13.1 Seconds (9.4-12.1) H 11/08/18 20:43 ABG pCO2 24 mmHg (35-45) L 11/08/18 21:51 ABG pO2 61 mmHg (85-104) L 11/08/18 21:51 ABG HCO3 16 mEq/L (21-27) L 11/08/18 21:51 ABG Total CO2 16 mEq/L (20-26) L 11/08/18 21:51 ABG O2 Saturation 93 % (95-98) L 11/08/18 21:51 ABG Base Excess -7 mEq/L (-2 to 3) L 11/08/18 21:51 Sodium 129 mEq/L (136-145) L 11/09/18 02:16 Potassium 5.3 mEq/L (3.5-5.1) H 11/09/18 02:16 Chloride 93 mEq/L (98-107) L 11/09/18 02:16 Carbon Dioxide 19 mEq/L (23-29) L 11/10/18 06:24 BUN 58 mg/dL (8-23) H 11/10/18 06:24 2.92 mg/dL (0.70-1.30) H 11/10/18 06:24 Est GFR ( Amer) 26 (> 60) L 11/10/18 06:24 Est GFR (Non-Af Amer) 21 (> 60) L 11/10/18 06:24 Glucose 128 mg/dL (70-105) H 11/10/18 06:24 Lactic Acid 2.8 mmol/L (0.5-2.2) H 11/08/18 23:18 11.8 mg/dL (2.3-7.6) H 11/09/18 07:24 Calcium 8.1 mg/dL (8.6-10.3) L 11/10/18 06:24 0.4 mg/dL (0.0-0.2) H 11/08/18 20:43 AST 70 Units/L (13-39) H 11/09/18 02:16 135 Units/L (34-104) H 11/09/18 02:16 0.08 ng/mL (< 0.04) H* 11/09/18 12:42 B-Natriuretic Peptide 316 pg/mL (Less than 100) H 11/08/18 20:43 3.4 g/dL (3.5-5.7) L 11/09/18 02:16 3.9 g/dL (2.4-3.5) H 11/08/18 20:43 1.0 (1.1-2.2) L 11/09/18 02:16 > 100.00 ng/mL (0.00-0.15) H 11/08/18 20:45 Turbid (Clear) A 11/09/18 14:50 100 mg/dL (Neg-Trace) H 11/09/18 14:50 Trace mg/dL (Negative) H 11/09/18 14:50 Large (Negative) H 11/09/18 14:50 Ur Leukocyte Esterase Moderate (Negative) H 11/09/18 14:50 TNTC per hpf (0-3) H 11/09/18 14:50 TNTC per hpf (0-3) H 11/09/18 14:50 Ur Squamous Epith Cells Many per lpf (None-Few) H 11/09/18 14:50 Ur Culture Indicated? YES (NO) A 11/09/18 14:50 Protein/Creatinin Ratio 3.16 mg/mg (0.00-0.20) H 11/09/18 14:50 183 mg/dL (1-14) H 11/09/18 14:50 - Head Head exam: Present: normal inspection, normocephalic - Eye Eye exam: Present: PERRL - ENT ENT exam: Present: mucous membranes moist - Neck Neck exam: Present: normal inspection - Respiratory Respiratory exam: Present: decreased breath sounds - Cardiovascular Cardiovascular exam: Present: RRR, +S1, +S2 - Expanded Cardiovascular Exam Peripheral pulses: 1+: Femoral (L) PM, Femoral (R) PM, Posterior Tibialis (L), Posterior Tibialis (R), 2+: Carotid (L) PM, Carotid (R) PM, Radial (L), Radial (R), Dorsalis Pedis (L) PM, Dorsalis Pedis (R) PM - GI/Abdominal GI/Abdominal exam: Present: diminished bowel sounds, distended - Rectal Rectal exam: Present: deferred - Extremities Exam Extremities exam: Present: pedal edema (bilateral feet cool to touch) - Back Exam Back exam: Present: tenderness, vertebral tenderness - Neurological Exam Neurological exam: Present: oriented X3, no focal deficits - Psychiatric Psychiatric exam: Present: flat affect - Skin Skin exam: Present: pallor, warm Palliative Quality Palliative Quality: Screen for Code Status: Yes, Screen for Goals of Care: Yes, Screen for Pain: Yes, If Pain Regimen Started, Initiate Bowel Regimen: NA, Screen for Nausea/Vomitting: Yes Code Status: 11/09/18 00:32 CODE [Resuscitation Status: Active] [RES] Routine Comment: Resuscitation Status: DNR-Comfort Care-Arrest 11/09/18 01:04 CODE [Resuscitation Status: Active] [RES] Routine Comment: Resuscitation Status: Full Code 11/09/18 01:09 CODE [Resuscitation Status: Active] [RES] Routine Comment: Resuscitation Status: DNR-Comfort Care - Labs CBC & Chem 7: 11/10/18 06:24 11/10/18 06:24 Labs: Laboratory Results - last 24 hr 11/08/18 11/09/18 11/09/18 21:03 10:42 12:42 WBC RBC Hgb Hct MCV MCH MCHC RDW Plt Count MPV Immature Gran % Seg Neutrophils % Lymphocytes % Monocytes % Eosinophils % Basophils % Neutrophils # Lymphocytes # Monocytes # Eosinophils # Basophils # Sodium Potassium Chloride Carbon Dioxide BUN Creatinine Est GFR ( Amer) Est GFR (Non-Af Amer) BUN/Creatinine Ratio Glucose Calculated Osmolality Calcium Troponin I 0.08 H* Urine Color Urine Clarity Urine pH Ur Specific Egan Urine Protein Urine Glucose (UA) Urine Ketones Urine Blood Urine Nitrite Urine Bilirubin Urine Urobilinogen Ur Leukocyte Esterase Urine Microscopic RBC Urine Microscopic WBC Ur Squamous Epith Cells Urine Bacteria Hyaline Casts Ur Culture Indicated? Urine Creatinine Protein/Creatinin Ratio Urine Total Protein Nasal Screen MRSA (PCR) Negative A. baumannii (PCR) Not Detected Paula albicans (PCR) Not Detected C. glabrata (PCR) Not Detected C. krusei (PCR) Not Detected C. parapsilosis (PCR) Not Detected C. tropicalis (PCR) Not Detected Enterobacteriac sp PCR Not Detected E. cloacae complex PCR Not Detected Enterococcus sp PCR Not Detected E. coli (PCR) Not Detected H. influenzae (PCR) Not Detected Klebsiella oxytoca PCR Not Detected Klebsiella pneumoniae Not Detected List. monocytogenes PCR Not Detected N. meningitidis (PCR) Not Detected Proteus species (PCR) Not Detected Serratia marcescens PCR Not Detected Staphylococcus sp PCR Not Detected Staph aureus (PCR) Not Detected mecA-Methicil Res Gene N/A Streptococcus sp PCR Not Detected Group A Strep DNA Not Detected Group B Strep (PCR) Not Detected Strep pneumoniae (PCR) Not Detected P. aeruginosa (PCR) Not Detected Vidhya/B-Vanco Res Genes N/A KPC (blaKPC) Detect PCR N/A Specimen Rejected 11/09/18 11/09/18 11/09/18 14:50 14:50 15:10 WBC RBC Hgb Hct MCV MCH MCHC RDW Plt Count MPV Immature Gran % Seg Neutrophils % Lymphocytes % Monocytes % Eosinophils % Basophils % Neutrophils # Lymphocytes # Monocytes # Eosinophils # Basophils # Sodium Potassium Chloride Carbon Dioxide BUN Creatinine Est GFR ( Amer) Est GFR (Non-Af Amer) BUN/Creatinine Ratio Glucose Calculated Osmolality Calcium Troponin I Urine Color Dark Yellow Urine Clarity Turbid A Urine pH 5.5 Ur Specific Egan 1.019 Urine Protein 100 H Urine Glucose (UA) Normal Urine Ketones Trace H Urine Blood Large H Urine Nitrite Negative Urine Bilirubin Negative Urine Urobilinogen Normal Ur Leukocyte Esterase Moderate H Urine Microscopic RBC TNTC H Urine Microscopic WBC TNTC H Ur Squamous Epith Cells Many H Urine Bacteria None Seen Hyaline Casts None Seen Ur Culture Indicated? YES A Urine Creatinine 58 Protein/Creatinin Ratio 3.16 H Urine Total Protein 183 H Nasal Screen MRSA (PCR) A. baumannii (PCR) Paula albicans (PCR) C. glabrata (PCR) C. krusei (PCR) C. parapsilosis (PCR) C. tropicalis (PCR) Enterobacteriac sp PCR E. cloacae complex PCR Enterococcus sp PCR E. coli (PCR) H. influenzae (PCR) Klebsiella oxytoca PCR Klebsiella pneumoniae List. monocytogenes PCR N. meningitidis (PCR) Proteus species (PCR) Serratia marcescens PCR Staphylococcus sp PCR Staph aureus (PCR) mecA-Methicil Res Gene Streptococcus sp PCR Group A Strep DNA Group B Strep (PCR) Strep pneumoniae (PCR) P. aeruginosa (PCR) Vidhya/B-Vanco Res Genes KPC (blaKPC) Detect PCR Specimen Rejected Volume 11/10/18 11/10/18 06:24 06:24 WBC 17.5 H RBC 3.80 L Hgb 11.5 L Hct 35.2 L MCV 92.6 MCH 30.3 MCHC 32.7 RDW 15.3 H Plt Count 144 MPV 9.7 Immature Gran % 0.5 Seg Neutrophils % 93.8 Lymphocytes % 1.6 Monocytes % 3.9 Eosinophils % 0.0 Basophils % 0.2 Neutrophils # 16.4 H Lymphocytes # 0.3 L Monocytes # 0.7 Eosinophils # 0.0 Basophils # 0.0 Sodium 136 Potassium 3.9 Chloride 101 Carbon Dioxide 19 L BUN 58 H Creatinine 2.92 H Est GFR ( Amer) 26 L Est GFR (Non-Af Amer) 21 L BUN/Creatinine Ratio 20 Glucose 128 H Calculated Osmolality 300 Calcium 8.1 L Troponin I Urine Color Urine Clarity Urine pH Ur Specific Egan Urine Protein Urine Glucose (UA) Urine Ketones Urine Blood Urine Nitrite Urine Bilirubin Urine Urobilinogen Ur Leukocyte Esterase Urine Microscopic RBC Urine Microscopic WBC Ur Squamous Epith Cells Urine Bacteria Hyaline Casts Ur Culture Indicated? Urine Creatinine Protein/Creatinin Ratio Urine Total Protein Nasal Screen MRSA (PCR) A. baumannii (PCR) Paula albicans (PCR) C. glabrata (PCR) C. krusei (PCR) C. parapsilosis (PCR) C. tropicalis (PCR) Enterobacteriac sp PCR E. cloacae complex PCR Enterococcus sp PCR E. coli (PCR) H. influenzae (PCR) Klebsiella oxytoca PCR Klebsiella pneumoniae List. monocytogenes PCR N. meningitidis (PCR) Proteus species (PCR) Serratia marcescens PCR Staphylococcus sp PCR Staph aureus (PCR) mecA-Methicil Res Gene Streptococcus sp PCR Group A Strep DNA Group B Strep (PCR) Strep pneumoniae (PCR) P. aeruginosa (PCR) Vidhya/B-Vanco Res Genes KPC (blaKPC) Detect PCR Specimen Rejected - Impressions Impressions Retroperitoneum Ultrasound 11/09/18 16:00 IMPRESSION: 1. Echogenic left kidney which may be related to medical renal disease. 2. Duran catheter within the bladder. D/ / Tasha Marti MD / Tasha Marti MD Interpreting Provider: Tasha Marti MD Echocardiogram 11/09/18 23:48 Impressions: LVEF 60%. Mild left ventricular diastolic dysfunction. The right ventricle was not well visualized but appeared grossly normal in size and function Unable to estimate RVSP due to lack of TR jet. No obvious significant valvular dysfunction. Left Ventricular Wall Motion: Rest Echo Findings All wall segments showed normal motion. Findings: Study Quality * Technically sub-optimal due to poor echocardiographic windows. ECG Findings * Normal sinus rhythm. Left Ventricle * LVEF 60%. * Atypical septal motion noted. * Mild left ventricular diastolic dysfunction. * Definity echo contrast was used. Right Ventricle * The right ventricle was not well visualized but appeared grossly normal in size and function Left Atrium * Normal left atrial size. Right Atrium * Normal right atrial size. Interatrial Septum * Interatrial septum not well evaluated. Aortic Valve * Aortic valve not well visualized. * No aortic regurgitation. * No aortic stenosis. Mitral Valve * Trace mitral regurgitation. * No mitral stenosis. * Mitral valve not well visualized. Tricuspid Valve * Trace tricuspid regurgitation. * Unable to estimate RVSP due to lack of TR jet. * No tricuspid stenosis. * Tricuspid valve not well visualized. Pulmonic Valve * Pulmonic valve is not well visualized. Aorta * Normally sized aortic root. Pericardium * The pericardium appears normal. IVC * The IVC is dilated. Pulmonary Artery * Pulmonary artery not well visualized. - ABG Interpretation ABG results: ABG ABG pH 7.43 pH Units (7.32-7.45) 11/08/18 21:51 ABG pCO2 24 mmHg (35-45) L 11/08/18 21:51 ABG pO2 61 mmHg (85-104) L 11/08/18 21:51 ABG O2 Saturation 93 % (95-98) L 11/08/18 21:51 PT/INR, D-dimer PT 13.1 Seconds (9.4-12.1) H 11/08/18 20:43 Palliative Scale - Palliative Performance Scale How ambulatory is this patient?: Reduced What is patient's level of activity and evidence of disease?: Unable to do any work, Extensive disease How much self-care assistance does patient require?: Considerable assistance required How much oral intake does the patient have?: Normal or reduced What is this patient's level of consciousness?: Full Palliative Performance Score: 50 % Consult Discharge Plan - Plan Referrals: Willem Le DO [Primary Care Provider] -
[2018-11-10 11:14] VITALS: BP 105/70
--- NOTE | 2018-11-10 11:46 | Discharge Summary ---
<Bernardino Escobar - Last Filed: 11/10/18 17:16> - NOTES TO OUTPATIENT PROVIDER Notes to Outpatient Provider: Admitted with respiratory failure secondary to progression of disease as well as aspiration pneumonia. Discarged to inpatient hospice. Orders not resulted at time of discharge: Pending orders 11/08/18 21:03 Culture,Blood [BC] Stat 11/09/18 00:29 Culture,Sputum with Gram Stain [RM] Routine 11/09/18 14:50 Culture,Urine [RM] Stat 11/09/18 15:11 Eosinophil,Urine [URIN] Stat Date of Encounter: 11/10/18 Time of Encounter: 11:44 - Discharge Diagnosis (1) Small cell lung cancer Priority: Secondary Status: Chronic (2) Pneumonia Priority: Primary Status: Acute Qualifiers: Pneumonia type: due to unspecified organism Laterality: unspecified laterality Lung location: unspecified part of lung Qualified Code(s): J18.9 - Pneumonia, unspecified organism (3) Metastatic cancer Priority: Secondary Status: Chronic (4) Goals of care, counseling/discussion Priority: Secondary Status: Acute (5) Palliative care encounter Priority: Secondary Status: Acute Hospital course: Mr. 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 She presented to the hospital with a complaint of worsening shortness of breath. Patient also admitted to increase in sputum production. Vital signs on presentation were significant for a respiratory rate of 44, blood pressure 88/61 and he was requiring BiPAP support with oxygen saturation 91%. Labs showed leukocytosis of 25, sodium of 128, potassium 6.0, BUNs/creatinine of 69/4.3, bicarbonate 22, lactic acid of 2.8. Troponin of 0.19 and pro-calcitonin greater than 100. Chest x-ray showed increased left lung opacity likely infection. He was admitted for suspected pneumonia with possible aspiration component and admitted with vancomycin, Levaquin, Zosyn. Patient was evaluated by nephrology who suspected a prerenal etiology to his disease. He was also visited by the palliative care team and patient and family have decided to pursue palliative/hospice care. He will be discharged to inpatient hospice with supportive measures including pain control, anxiety control, secretions control. Lifesaving measures will be withdrawn. Family, social economist informed. Discharge discussed with: patient, family, social work, case management - Time Spent with Patient Total time spent providing and/or coordinating discharge services: - Discharge Medications Prescriptions: New Atropine 1% Opth Drops 4 drop SL Q4HR PRN bottle PRN Reason: Secretions Ipratropium/Albuterol Neb [Duoneb] 3 ml IH [id number] inhsol MORPHINE SUL Oral CONC [Roxanol Oral Conc] 10 mg SL Q4HR PRN oral.syg PRN Reason: Severe Pain Continued Pantoprazole Sodium 40 mg PO DAILY Docusate [Colace] 200 mg PO BID #120 capsule Aspirin Enteric Coated [Aspirin EC] 81 mg PO DAILY #30 tablet. Promethazine [Phenergan] 25 mg PO Q6HR PRN #30 tablet PRN Reason: Nausea Nitroglycerin [Nitrostat] 0.4 mg SL Q1H PRN #30 tab.subl PRN Reason: Pain Mirtazapine [Remeron] 15 mg PO HS #30 tablet Metoprolol [Lopressor] 25 mg PO BID #60 tablet Albuterol Sulfate [Proair Hfa] 1 puff IH QID PRN PRN Reason: Dyspnea OxyCODONE Immed Rel [Roxicodone 5 MG] 10 mg PO Q4H PRN 30 Days #90 tablet PRN Reason: Pain Tamsulosin [Flomax] 0.4 mg PO DAILY Meloxicam 7.5 mg PO DAILY Home Medications: Pantoprazole Sodium 40 mg PO DAILY 07/07/17 [History] Docusate [Colace] 200 mg PO BID #120 capsule 07/16/17 [Rx] Aspirin Enteric Coated [Aspirin EC] 81 mg PO DAILY #30 tablet. 07/20/17 [Rx] Promethazine [Phenergan] 25 mg PO Q6HR PRN #30 tablet 07/22/17 [Rx] Nitroglycerin [Nitrostat] 0.4 mg SL Q1H PRN #30 tab.subl 08/14/17 [Rx] Mirtazapine [Remeron] 15 mg PO HS #30 tablet 01/19/18 [Rx] Metoprolol [Lopressor] 25 mg PO BID #60 tablet 01/27/18 [Rx] Albuterol Sulfate [Proair Hfa] 1 puff IH QID PRN 04/29/18 [History] OxyCODONE Immed Rel [Roxicodone 5 MG] 10 mg PO Q4H PRN 30 Days #90 tablet 10/27/18 [Rx] Meloxicam 7.5 mg PO DAILY 11/09/18 [History] Tamsulosin [Flomax] 0.4 mg PO DAILY 11/09/18 [History] Atropine 1% Opth Drops 4 drop SL Q4HR PRN bottle 11/10/18 [Rx] Ipratropium/Albuterol Neb [Duoneb] 3 ml IH [id number] inhsol 11/10/18 [Rx] MORPHINE SUL Oral CONC [Roxanol Oral Conc] 10 mg SL Q4HR PRN oral.syg 11/10/18 [Rx] Allergies/Adverse Reactions: Allergy/AdvReac Type Severity Reaction Status Date / Time No Known Allergies Allergy Verified 10/27/18 09:25 Date of admission: 11/09/18 01:29 Primary care physician: Willem Le Consults: 11/09/18 00:32 Consult to Palliative Care [CONS] Routine Comment: Consulting Provider: Palliative Care Merle Reason for Consult: widespread mets, goals of care, POA assignment Call Completed: No 11/09/18 00:33 Consult to Nephrology [CONS] Routine Consulting Provider: Kidney Sargent/FLEX/PETER/DARY Reason for Consult: acute renal failure, widespread metasiasis Call Completed: No 11/09/18 14:13 Consult to Nurse Navigator [CONS] Routine Comment: pn, copd Discharging clinician: Bernardino Escobar Anticipated date of discharge: 11/10/18 - Constitutional Vitals: Temp Pulse Resp BP Pulse Ox 97.7 F 97 20 105/70 89 11/10/18 11:11 11/10/18 11:11 11/10/18 11:11 11/10/18 11:11 11/10/18 11:11 General appearance: Present: disheveled, A&O X 3, severe distress Exam: Sleeping soundly Rattles in breath Moderately labored breathing Tachycardic no edema - Patient Status Disposition: Hospice - Medical Facility Condition: Serious Functional capacity at discharge: bed bound Overall status at discharge: patient is not back to baseline - Discharge Instructions Follow Up With: Willem Le DO [Primary Care Provider] - Forms: ED Satisfaction Letter <YunigigiDarryl lovemerritt Fletcher - Last Filed: 11/10/18 20:34> Orders not resulted at time of discharge: Pending orders 11/08/18 21:03 Culture,Blood [BC] Stat 11/09/18 00:29 Culture,Sputum with Gram Stain [RM] Routine 11/09/18 14:50 Culture,Urine [RM] Stat 11/09/18 15:11 Eosinophil,Urine [URIN] Stat Date of Encounter: 11/10/18 - Discharge Diagnosis (1) Small cell lung cancer Status: Chronic (2) Pneumonia Status: Acute Qualifiers: Pneumonia type: due to unspecified organism Laterality: unspecified latera lity Lung location: unspecified part of lung Qualified Code(s): J18.9 - Pneumonia, unspecified organism (3) Metastatic cancer Status: Chronic (4) Goals of care, counseling/discussion Status: Acute (5) Palliative care encounter Status: Acute Hospital course: Mr. Ramirez is a 78 year old male - Time Spent with Patient Total time spent providing and/or coordinating discharge services: Date of admission: 11/09/18 01:29 Primary care physician: Willem Le Consults: 11/09/18 00:32 Consult to Palliative Care [CONS] Routine Comment: Consulting Provider: Palliative Care Merle Reason for Consult: widespread mets, goals of care, POA assignment Call Completed: No 11/09/18 00:33 Consult to Nephrology [CONS] Routine Consulting Provider: Kidney Merle/FLEX/PETER/DARY Reason for Consult: acute renal failure, widespread metasiasis Call Completed: No 11/09/18 14:13 Consult to Nurse Navigator [CONS] Routine Comment: pn, copd - Constitutional Vitals: Temp Pulse Resp BP Pulse Ox 97.7 F 97 20 105/70 89 11/10/18 11:11 11/10/18 11:11 11/10/18 11:11 11/10/18 11:11 11/10/18 11:11 - Attending Attestation I examined this patient and my medical decision-making was reviewed with the Resident Physician. I agree with the documented findings, disposition and treatment plan as described except to the extent set forth below.
--- NOTE | 2018-11-10 11:47 | Nephrology Progress Note ---
Date of Encounter: 11/10/18 Time of Encounter: 09:50 - Assessment and Plan (1) Acute kidney injury Status: Acute The RACHELL is improving, but given his other comorbidities, I see that he has been made comfort care. I will sign off. Thank you for consulting the [facility], and I would be happy to help with any questions if needed. Thank you. (2) Hyperkalemia Status: Acute (3) Sepsis Status: Acute Qualifiers: Sepsis type: sepsis due to unspecified organism Qualified Code(s): A41.9 - Sepsis, unspecified organism Subjective Interval history: The patient was seen and examined. He did not awaken to verbal commands. He had another at another son present who I updated. Due to the AMS, this limits the Subjective history of the this note. Objective - Vital Signs Vital signs: Vital Signs Temp Pulse Resp BP Pulse Ox 11/10/18 11:11 97.7 F 97 20 105/70 89 11/10/18 11:06 14 90 11/10/18 07:41 22 90 11/10/18 07:08 97.4 F L 99 22 115/72 90 11/10/18 05:32 28 85 11/10/18 04:31 97.6 F 96 20 99/76 90 11/10/18 04:07 18 90 11/10/18 00:14 97.5 F L 90 19 109/73 90 11/09/18 23:55 18 86 11/09/18 20:05 20 90 11/09/18 19:39 97.7 F 89 17 104/66 90 11/09/18 15:45 18 90 11/09/18 15:40 97.6 F 88 19 110/71 90 Intake and Output 11/09/18 11/10/18 11/10/18 23:59 07:59 15:59 Intake Total 1200 / 4650 1000 / 1000 0 / 1000 Output Total 200 / 2900 250 / 250 Balance 1000 / 1750 750 / 750 0 / 750 Intake: IV Fluids 1200 / 4650 1000 / 1000 0.9 % Sodium Chloride 1,000 ML 1000 / 2000 1000 / 1000 @ 125 mls/hr IVC .Q8H [facility] Rx#: [id number] Levaquin Premix 500mg/100mL 500 100 / 100 mg In 100 ml @ 100 mls/hr IVPB Q48H [facility] Rx#:[id number] Zosyn 3.375 GM In 0.9 % Sodium 100 / 200 Chloride (Mini-Bag +) 100 ML @ 25 mls/hr IVPB Q12HR [facility] Rx#: [id number] Oral 0 / 0 0 / 0 Output: Urine 0 / 0 Catheter 200 / 2900 250 / 250 Urethral (Duran) 200 / 1550 Other: Meal Breakfast Percent of Meal Consumed 0% - General Appearance General appearance: Present: chronically ill, fatigue, frail EENT: Present: mucous membranes moist Neck: Present: supple Respiratory: Present: rales, course breath sounds, rhonchi Cardiology: Present: edema, regular rate, regular rhythm Integumentary: Present: ecchymotic, hyperpigmentation Neurologic: Present: obtunded - Lab 11/10/18 06:24 11/10/18 06:24 Most recent lab results 11/10/18 06:24 Calcium 8.1 L Consult Discharge Plan - Plan Referrals: Willem Le DO [Primary Care Provider] -
[2018-11-10] MEDS ORDERED: Levofloxacin 500 MG/100 ML 500 MG/100 ML BAG IVPB SCH (21:00)
== END 2018-11-10 11:59 | disposition hospice, inpatient (51) | DRG 871 ==
LOC: EMEROOARM 20:14 → 2NNU 20:14 → SUATTDRO 11-09 01:29 → 2NNU 11-09 01:37 → 2ANU 11-09 01:51
PROVIDERS: ADMIT Family Medicine; ATTEND Student in an Organized Health Care Education/Training Program

== ENCOUNTER 2018-11-10 11:08 | Inpatient (IN) ==
[2018-11-10] MEDS ORDERED: Haloperidol Oral Conc 10 MG/5 ML UDC PO PRN (11:53)
[2018-11-10] MEDS ORDERED: Ondansetron 4 MG/2 ML VIAL IVP PRN (11:53)
[2018-11-10] MEDS ORDERED: Ipratropium/Albuterol Neb 3 ML IH PRN (11:53)
[2018-11-10] MEDS ORDERED: Bisacodyl 10 MG RECTAL SUPPOSITORY RC PRN (11:53)
[2018-11-10] MEDS: MORPHINE SUL Oral CONC 10 MG/0.5 ML ORAL.SYG SL PRN ×3 (12:20→20:38)
[2018-11-10] MEDS: *HR* LORazepam Oral Conc 2 MG/ML PO PRN ×3 (12:21→20:37)
[2018-11-10] MEDS ORDERED: *HR* FentaNYL (PF) 100 MCG/2 ML VIAL IVP PRN (16:22)
[2018-11-10] MEDS: Atropine 1% Opth Drops 100 DROP/5 ML BOTTLE SL PRN ×2 (16:23→20:41)
[2018-11-11] MEDS: MORPHINE SUL Oral CONC 10 MG/0.5 ML ORAL.SYG SL PRN ×3 (00:20→08:12)
[2018-11-11] MEDS: *HR* LORazepam Oral Conc 2 MG/ML PO PRN ×2 (00:21→04:10)
[2018-11-11] MEDS: Atropine 1% Opth Drops 100 DROP/5 ML BOTTLE SL PRN ×3 (00:22→08:13)
[2018-11-11 07:39] VITALS: BP 102/62
[2018-11-11] MEDS ORDERED: Scopolamine Patch 1.5 MG PATCH.TD72 TD SCH (10:45)
--- NOTE | 2018-11-11 14:22 | Pallative History & Physical ---
Date of Encounter: 11/11/18 Time of Encounter: 09:00 Assessment and Plan (1) Goals of care, counseling/discussion Status: Acute Per family wishes, all antibiotics and IVF were discontinued yesterday. Patient was transitioned to [facility]. Son-in-law was present and made aware that patient is actively dying. He stated all relatives said their goodbye. Emotional support provided (2) Cancer associated pain Status: Acute Roxanol 10mg prn and fentanyl IV prn (3) Hospice care Status: Acute (4) Acute respiratory failure Status: Acute Patient is having high secretions, will start scopolamine patch opioid and oxygen Qualifiers: Respiratory failure complication: unspecified whether with hypoxia or hypercapnia Qualified Code(s): J96.00 - Acute respiratory failure, unspecified whether with hypoxia or hypercapnia (5) Metastatic cancer Status: Chronic Internal Medicine - H&P: HPI Chief complaint: Hospice admission Admitted From: Hospital to Hospital Transfer Plans for Post Hospital Care: at Medical Facility History of present illness: Mr. Ramirez is a 78 year old male with metastatic small cell lung cancer, COPD, and GERD. He presented with SOB and was admitted on 11/08/18 for pneumonia and sepsis. Patient was followed by dr. Leblanc at the cancer center, on his latest follow up on 10/27/18, disease showed jarrett progression, and he was referred to hospice by oncology, DNRCC was signed at the time. Patient continued to have worsening pain, dyspnea and AMS despite aggressive treatment. Patient and family decided to transition to hospice [facility] for symptom management. Today patient is lethargic, not opening eyes, non verbal. Increased secretions. In no acute distress. Son-in-law at the bedside. Past Med Surg Social Fam HX - Past Medical History Medical history: cancer, COPD Additional medical history: lung cancer Psychiatric history: no psych history - Past Surgical History Additional surgical history: right inguinal hernia. left inguinal hernia - Social History Smoking Status: Former smoker Smokeless Tobacco Status: No Alcohol use: none Drug use: none - Family History Mother Living Status: Hx Family Respiratory Disorders: Yes (asthma) Father Living Status: Hx Family Cardiac Disorders: Yes (mother) Hx Family Respiratory Disorders: Yes (mother asthma) Hx Family Cancer: Yes (father) Hx Family GI Disorders: No Hx Family Endocrine Disorder: No Hx Family Neuromuscular Disorders: No Hx Family Neurologic Disorders: No Hx Family HEENT Disorders: No Hx Family Autoimmune Disorders: No Internal Medicine - H&P: Meds Pantoprazole Sodium 40 mg PO DAILY 07/07/17 [History] Docusate [Colace] 200 mg PO BID #120 capsule 07/16/17 [Rx] Aspirin Enteric Coated [Aspirin EC] 81 mg PO DAILY #30 tablet. 07/20/17 [Rx] Promethazine [Phenergan] 25 mg PO Q6HR PRN #30 tablet 07/22/17 [Rx] Nitroglycerin [Nitrostat] 0.4 mg SL Q1H PRN #30 tab.subl 08/14/17 [Rx] Mirtazapine [Remeron] 15 mg PO HS #30 tablet 01/19/18 [Rx] Metoprolol [Lopressor] 25 mg PO BID #60 tablet 01/27/18 [Rx] Albuterol Sulfate [Proair Hfa] 1 puff IH QID PRN 04/29/18 [History] OxyCODONE Immed Rel [Roxicodone 5 MG] 10 mg PO Q4H PRN 30 Days #90 tablet 10/27/18 [Rx] Meloxicam 7.5 mg PO DAILY 11/09/18 [History] Tamsulosin [Flomax] 0.4 mg PO DAILY 11/09/18 [History] Atropine 1% Opth Drops 4 drop SL Q4HR PRN bottle 11/10/18 [Rx] Ipratropium/Albuterol Neb [Duoneb] 3 ml IH [id number] inhsol 11/10/18 [Rx] MORPHINE SUL Oral CONC [Roxanol Oral Conc] 10 mg SL Q4HR PRN oral.syg 11/10/18 [Rx] Allergy/AdvReac Type Severity Reaction Status Date / Time No Known Allergies Allergy Verified 10/27/18 09:25 ROS unobtainable: due to mental status Palliative Care-Exam - Constitutional Vitals: Temp Pulse Resp BP Pulse Ox 97.5 F L 95 20 102/62 70 11/11/18 07:37 11/11/18 07:37 11/11/18 07:37 11/11/18 07:37 11/11/18 07:37 General appearance: Present: no acute distress - Head Head Exam: Present: atraumatic - Eye Eye exam: Present: conjuntiva pink - Neck Neck exam: Present: full ROM - Respiratory Respiratory exam: Present: accessory muscle use, rales, rhonchi - Cardiovascular Cardiovascular exam: Present: RRR, +S1, +S2 - GI/Abdominal Exam GI/Abdominal exam: Present: soft, tenderness additional comments: tender in upper quadrants bilaterally. tenderness of focal around areas of known metastases including a subcutaneous mass on the left side. - Extremities Exam Extremities exam: Present: pedal edema Additional comments: mottling to upper tights - Skin Skin exam: Present: mottled Palliative Quality Palliative Quality: Screen for Code Status: Yes, Screen for Goals of Care: Yes, Screen for Pain: Yes, If Pain Regimen Started, Initiate Bowel Regimen: Yes, Screen for Nausea/Vomitting: Yes Code Status: 11/10/18 11:53 Resuscitation Status: Active [RES] Routine Comment: Resuscitation Status: DNR-Comfort Care
--- NOTE | 2018-11-11 16:06 | Discharge Summary ---
Date of Encounter: 11/11/18 - Discharge Diagnosis (1) Goals of care, counseling/discussion Status: Acute (2) Cancer associated pain Status: Acute (3) Hospice care Status: Acute (4) Acute respiratory failure Status: Acute Qualifiers: Respiratory failure complication: unspecified whether with hypoxia or hypercapnia Qualified Code(s): J96.00 - Acute respiratory failure, unspecified whether with hypoxia or hypercapnia (5) Metastatic cancer Status: Chronic - Hospital Course Hospital course: Mr. Ramirez is a 78 year old male - Time Spent with Patient Total time spent providing and/or coordinating discharge services: - Discharge Medications Prescriptions: No Action Pantoprazole Sodium 40 mg PO DAILY Docusate [Colace] 200 mg PO BID #120 capsule Aspirin Enteric Coated [Aspirin EC] 81 mg PO DAILY #30 tablet. Promethazine [Phenergan] 25 mg PO Q6HR PRN #30 tablet PRN Reason: Nausea Nitroglycerin [Nitrostat] 0.4 mg SL Q1H PRN #30 tab.subl PRN Reason: Pain Mirtazapine [Remeron] 15 mg PO HS #30 tablet Metoprolol [Lopressor] 25 mg PO BID #60 tablet Albuterol Sulfate [Proair Hfa] 1 puff IH QID PRN PRN Reason: Dyspnea OxyCODONE Immed Rel [Roxicodone 5 MG] 10 mg PO Q4H PRN 30 Days #90 tablet PRN Reason: Pain Tamsulosin [Flomax] 0.4 mg PO DAILY Meloxicam 7.5 mg PO DAILY Atropine 1% Opth Drops 4 drop SL Q4HR PRN bottle PRN Reason: Secretions Ipratropium/Albuterol Neb [Duoneb] 3 ml IH [id number] inhsol MORPHINE SUL Oral CONC [Roxanol Oral Conc] 10 mg SL Q4HR PRN oral.syg PRN Reason: Severe Pain Home Medications: Pantoprazole Sodium 40 mg PO DAILY 07/07/17 [History] Docusate [Colace] 200 mg PO BID #120 capsule 07/16/17 [Rx] Aspirin Enteric Coated [Aspirin EC] 81 mg PO DAILY #30 tablet. 07/20/17 [Rx] Promethazine [Phenergan] 25 mg PO Q6HR PRN #30 tablet 07/22/17 [Rx] Nitroglycerin [Nitrostat] 0.4 mg SL Q1H PRN #30 tab.subl 08/14/17 [Rx] Mirtazapine [Remeron] 15 mg PO HS #30 tablet 01/19/18 [Rx] Metoprolol [Lopressor] 25 mg PO BID #60 tablet 01/27/18 [Rx] Albuterol Sulfate [Proair Hfa] 1 puff IH QID PRN 04/29/18 [History] OxyCODONE Immed Rel [Roxicodone 5 MG] 10 mg PO Q4H PRN 30 Days #90 tablet 10/27/18 [Rx] Meloxicam 7.5 mg PO DAILY 11/09/18 [History] Tamsulosin [Flomax] 0.4 mg PO DAILY 11/09/18 [History] Atropine 1% Opth Drops 4 drop SL Q4HR PRN bottle 11/10/18 [Rx] Ipratropium/Albuterol Neb [Duoneb] 3 ml IH [id number] inhsol 11/10/18 [Rx] MORPHINE SUL Oral CONC [Roxanol Oral Conc] 10 mg SL Q4HR PRN oral.syg 11/10/18 [Rx] Allergies/Adverse Reactions: Allergy/AdvReac Type Severity Reaction Status Date / Time No Known Allergies Allergy Verified 10/27/18 09:25 Internal Medicine - DS: Prov Date of admission: 11/10/18 12:00 Primary care physician: PCP NONE Consults: 11/10/18 11:53 Consult to Palliative Care [CONS] Routine Comment: Consulting Provider: Palliative Care [facility]le Reason for Consult: Symptom managent Time Notified: 12:00 Call Completed: No Internal Medicine - DS: Exam - Constitutional Vitals: Vital Signs Temp Pulse Resp BP Pulse Ox 11/11/18 07:37 97.5 F L 95 20 102/62 70 11/10/18 19:11 97.7 F 52 19 103/58 78 Intake and Output 11/11/18 11/11/18 11/11/18 07:59 15:59 23:59 Output Total 200 / 200 Balance -200 / -200 Output: Catheter 200 / 200 - Patient Status Disposition: - Discharge Instructions Follow Up With: NONE,PCP [Primary Care Provider] -
--- NOTE | 2018-11-11 16:10 | Death Note ---
Discharge Sum: Summary - Date and Time Date of admission: 11/10/18 12:00 Date of : 11/11/18 Time of : 10:55 - Summary Details: Mr. Ramirez is a 78 year old male with metastatic small cell lung cancer, COPD, and GERD. He presented with SOB and was admitted on 11/08/18 for pneumonia and sepsis. Patient was followed by dr. Leblanc at the cancer center, on his latest follow up on 10/27/18, disease showed jarrett progression, and he was referred to hospice by oncology, DNRCC was signed at the time. Patient continued to have worsening pain, dyspnea and AMS despite aggressive treatment. Patient and family decided to transition to hospice [facility] for symptom management. Patient peacefully at 1055 am today. - Additional Data Confirmation of as documented by pronouncing clinician: no pulse, no respirations, no heart sounds, pupils fixed and dilated Family: at bedside, contacted Additional persons at bedside: carl Attending/PCP notified?: Yes Attending physician: Ilene Gross MD Was code activated?: No Autopsy requested?: No license registration examiner notified?: No Organ bank notified?: Yes Advance directives: Yes Hospice patient?: Yes Discharge Sum: Diag - PCOD Probable Cause of : Respiratory arrest Discharge Sum: Prov - Provider Primary care physician: PCP NONE Admitting clinician: Ilene Gross Attending physician on admission: Ilene Gross Consults: 11/10/18 11:53 Consult to Palliative Care [CONS] Routine Comment: Consulting Provider: Palliative Care [facility]le Reason for Consult: Symptom managent Time Notified: 12:00 Call Completed: No Pronouncing clinician: Natalya Wan
== END 2018-11-11 10:55 | disposition expired | DRG 951 ==
LOC: 2ANU 12:00
PROVIDERS: ADMIT Internal Medicine Hospice and Palliative Medicine; ATTEND Internal Medicine Hospice and Palliative Medicine